=== PATIENT | male | born 1945 | race Caucasian/White ===

== ENCOUNTER → 2016-04-15 | Outpatient (REF) | payer MEDICARE ==
[~2016-04-15] MED LIST: /CIPR75TA OR; /MIRT15TA OR; /PANT40TA PO; /TAMS4CA PO; ACET65TA OR; ALLE25CA OR; ARANESP IV; ASPI325T OR; ASPI81TA51 PO; AZAT5TAB PO; CALC12502 OR; CEFT500T PO; CIPR500S PO; CIPR500T89 PO; CLAR10CA3 PO; COLA50CA3 PO; COMPAZINE OR; COZA25TA8 OR; DEXILANT OR; DIPHENHIST; FLAG500T OR; FLAG500T PO; FOLI1TAB86 PO; IMUR50TA PO; K-PHTAB PO; KAYEXALATE OR; LOPR50TA OR; LORATAB PO; LUNE2TAB OR; MAGN400C2 PO; MAGN400T PO; MAGN500T PO; MIRA3350 PO; MOTRIN PO; MULTIVIT PO; NITR4TASL SL; NITRO STAT; OMEP20TA7 OR; POTA50TAB PO; PRED5TAB PO; PROT1TAB2 PO; ROCA0.25 PO; SENSIPAR OR; TACR5CAP PO; TAMS0.4C PO; TUMS500C OR; TUMS500C PO; TYLE325T5 PO; VANC1CAP7 PO; VENOFER IV; VICO5TAB OR; VIT D OR; ZANT1TAB OR; ZANTTAB PO; ZEMPLAR IV; [UNRECOGNIZED DRUG - OTHER]; [UNRECOGNIZED DRUG - OTHER] PO; [UNRECOGNIZED DRUG - OTHER] PO; [UNRECOGNIZED DRUG - OTHER] PO; [UNRECOGNIZED DRUG - OTHER] SL; compazine PO; dexilant PO; dialyvite PO; sensipar PO
[2016-04-15 14:10] LABS: ALBUMIN 3.7 GM/DL (3.2-5.2); ALBUMIN/GLOBULIN RATIO 1.95 (1.00-1.93); BILIRUBIN,DIRECT 0.4 MG/DL (0.0-0.2); BILIRUBIN,TOTAL 1.2 MG/DL (0.2-1.0); TOTAL PROTEIN 5.6 GM/DL (6.4-8.2)
== END ==
LOC: M LAB REF 13:14
PROVIDERS: ATTEND Internal Medicine Nephrology
DX: E78.00 Pure hypercholesterolemia, unspecified (principal); Z94.0 Kidney transplant status

== ENCOUNTER → 2016-05-15 | Outpatient (CLI) | payer MEDICARE ==
[~2016-05-15] MED LIST changes: +GASTROGRAFIN SOLUTION 30ML (Q9963) As Ordered ONE; +ISOVUE-370 76% 100ML VIAL (Q9967) As Ordered ONE
--- NOTE | 2016-05-15 16:45 | REP ---
Clinical: Right lower quadrant pain. History of diverticulitis. Technique: Axial contrast enhanced images from the lung bases to the pubic symphysis using oral and 100 ml Isovue 370 intravenous contrast material along with precontrast and delayed images of the abdomen to include the right lower quadrant transplant kidney. Coronal and sagittal re-formations obtained. Comparison: 10/15/2014. Findings: Lung bases demonstrate chronic left lower lobe atelectasis likely related to marked scoliosis. Visualized portions of the heart and pericardium are stable. Liver demonstrates diffuse chronic cystic changes. Splenomegaly remains stable. Pancreas is unremarkable adrenal glands are normal. [place] kidneys are absent. The enteric system demonstrates diffuse diverticulosis without bowel obstruction and no definite inflammatory process or diverticulitis. Transplanted kidney in the right lower quadrant appears normal on noncontrast, enhanced and delayed imaging. The bladder demonstrates small anterior diverticulum. The prostate gland is heterogeneous and mildly enlarged measuring up to 4.6 cm transverse diameter. Minimal chronic-appearing scattered mesenteric stranding noted throughout the abdomen and pelvis without significant ascites. No free air. No obvious adenopathy. Atherosclerotic changes to the aorta and vasculature noted without aneurysm. Musculoskeletal structures demonstrate severe scoliosis and degenerative changes. Impression: Diffuse chronic changes as described above. Normal appearing transplant kidney in the right lower quadrant. Marked diverticulosis without definite acute diverticulitis. No obvious acute intra-abdominal or pelvic pathology appreciated. Signed by Octavio Cadet MD 05/15/2016 04:36 P
== END ==
LOC: M RAD 14:15
PROVIDERS: ATTEND Internal Medicine Nephrology
DX: R10.31 Right lower quadrant pain (principal); K57.32 Diverticulitis of large intestine without perforation or abscess without bleeding
CPT/HCPCS: 74178; Q9963; Q9967

== ENCOUNTER → 2016-05-22 | Outpatient (REF) | payer MEDICARE ==
[~2016-05-22] MED LIST changes: -GASTROGRAFIN SOLUTION 30ML (Q9963) As Ordered ONE; -ISOVUE-370 76% 100ML VIAL (Q9967) As Ordered ONE
[2016-05-22 14:00] LABS: ALBUMIN 3.6 GM/DL (3.2-5.2); ALBUMIN/GLOBULIN RATIO 1.8 (1.00-1.93); BILIRUBIN,DIRECT 0.4 MG/DL (0.0-0.2); BILIRUBIN,TOTAL 1.3 MG/DL (0.2-1.0); TOTAL PROTEIN 5.6 GM/DL (6.4-8.2)
== END ==
LOC: M LAB REF 12:59
PROVIDERS: ATTEND Internal Medicine Nephrology
DX: Z94.0 Kidney transplant status (principal); E78.00 Pure hypercholesterolemia, unspecified

== ENCOUNTER 2016-09-17 19:35 | Inpatient (IN) | payer MEDICARE ==
[~2016-09-17] VITALS: Ht 165.1 cm; Wt 73.7 kg
[~2016-09-17 19:35] MED LIST changes: +AZAT50TA2 PO; -AZAT5TAB PO; -IMUR50TA PO; +IMUR50TA6 PO
[2016-09-17] MEDS ORDERED: ONDANSETRON 4MG/2ML VIAL (J2405) IV ONE (20:15)
[2016-09-17] MEDS ORDERED: NS 1,000 ML IV ONE (20:15)
[2016-09-17 20:24] LABS: BASO # 0.1 K/mm3 (0.0-0.2); BASO % 0.8 % (0.0-1.0); EOS # 0.1 K/mm3 (0.0-0.50); EOS % 1.3 % (0.0-3.0); LARGE UNSTAINED CELL # 0.1 K/mm3 (0.0-0.4); LARGE UNSTAINED CELL % 1.4 % (0.0-4.0); LYMPH # 1.2 K/mm3 (1.5-4.5); LYMPH % 15.2 % (24.0-44.0); MEAN CORPUSCULAR HEMOGLOBIN 33.4 pg (27.0-33.0); MEAN CORPUSCULAR HGB CONC 33.5 g/dl (32.0-36.5); MEAN CORPUSCULAR VOLUME 99.6 fl (80.0-96.0); MONO # 0.5 K/mm3 (0.0-0.8); MONO % 6.1 % (0.0-5.0); NEUTROPHILS % 75.2 % (36.0-66.0); RED CELL DISTRIBUTION WIDTH 15.1 % (11.5-14.5); WHITE BLOOD COUNT 7.9 K/mm3 (4.0-10.0)
[2016-09-17 20:25] LABS: PLATELET COUNT, AUTOMATED 70 k/mm3 (150-450)
[2016-09-17] MEDS ORDERED: MORPHINE 4 MG/ML 1ML SYRINGE IV PRN (20:30)
[2016-09-17 20:35] LABS: INR 1.27
--- NOTE | 2016-09-17 20:50 | REPUSA ---
CT of the abdomen and pelvis without contrast Clinical statement: Pain. Technique: Multiple axial CT images were obtained from the base of the lungs to the floor of the pelv is utilizing 5 mm axial slices without administration of contrast. Coronal and sagittal reconstructio ns were also obtained. Comparison: 05/15/2016. Findings: Chest: The visualized lung bases are clear. Abdomen: The [place] kidneys are absent bilaterally. There are innumerable low attenuation lesion scat tered throughout the liver, too small to fully characterize on this CT examination. The spleen is enl arged, measuring 17.2 cm in diameter. The pancreas, gallbladder and adrenal glands are unremarkable. The aorta demonstrates normal caliber and contour. There is no abdominal lymphadenopathy or ascites. Pelvis: The bowel is unremarkable, with no obstructive or inflammatory changes. Diffuse left-sided di verticulosis is noted, without evidence of diverticulitis. A transplant kidney is noted in the right lower quadrant. 2 mm nonobstructing stone is appreciated. The urinary bladder is within normal limits . There is no pelvic lymphadenopathy. There is a moderate amount of pelvic ascites, most prominent i n the left flank region. The other pelvic structures appear unremarkable. Bones: There are no suspicious osseous abnormalities seen. Severe scoliosis of the thoracic and lumba r spine is grossly stable. Impression: 1. No obstructive or inflammatory bowel changes. Diffuse left-sided diverticulosis. 2. Innumerable low attenuation lesions the liver, too small to characterize. Ultrasound may be helpfu l for further evaluation. 3. Splenomegaly. 4. Absence of the bilateral [place] kidneys. 5. Transplant kidney in the right lower quadrant is appreciated and are grossly unremarkable. 2 mm no nobstructing stone is appreciated however. 6. Moderate amount of pelvic ascites. 7. Severe stable scoliosis.
[2016-09-17 20:57] LABS: ALBUMIN/GLOBULIN RATIO 1.76 (1.00-1.93); ALKALINE PHOSPHATASE 77 U/L (45-117); ALT/SGPT 10 U/L (12-78); ANION GAP 9 MEQ/L (8-16); AST/SGOT 12 U/L (15-37); BILIRUBIN,DIRECT 0.4 MG/DL (0.0-0.2); BILIRUBIN,TOTAL 1.7 MG/DL (0.2-1.0); BLOOD UREA NITROGEN 20 MG/DL (7-18); CALCIUM LEVEL 8.4 MG/DL (8.8-10.2); CARBON DIOXIDE LEVEL 27 MEQ/L (21-32); CHLORIDE LEVEL 103 MEQ/L (98-107); GLOMERULAR FILTRATION RATE > 60.0 (>42); GLUCOSE, FASTING 144 MG/DL (83-110); POTASSIUM SERUM 4.3 MEQ/L (3.5-5.1); SODIUM LEVEL 139 MEQ/L (136-145); TOTAL PROTEIN 4.7 GM/DL (6.4-8.2)
[2016-09-17] MEDS: TAMSULOSIN 0.4 MG CAP PO SCH (21:00)
[2016-09-17] MEDS ORDERED: FLOM5CAP PO (21:55)
[2016-09-17] MEDS ORDERED: ONDA4TAB6 PO (21:55)
[2016-09-17] MEDS ORDERED: FOLI1TAB4 PO (21:55)
[2016-09-17] MEDS ORDERED: CALC500C16 PO (21:55)
[2016-09-17] MEDS ORDERED: ATOR1TAB19 PO (21:55)
[2016-09-17] MEDS ORDERED: MORPHINE 2 MG/ML 1ML SYRINGE IV PRN (22:15)
[2016-09-17] MEDS: PANTOPRAZOLE 40MG INJ (PROTONIX) (C9113) IV SCH (22:47)
[2016-09-17] MEDS: NS 1,000 ML IV SCH (23:00)
[2016-09-17] MEDS: OCTREOTIDE ACETATE 1,200 MCG in NS 238.8 ML IV SCH (23:05)
[2016-09-18] VITALS (8 sets, daily range): BP systolic 96–159; BP diastolic 52–74
[2016-09-18] MEDS: ONDANSETRON 4MG/2ML VIAL (J2405) IV PRN ×2 (02:47→08:04)
[2016-09-18 05:37] LABS: BASO # 0.1 K/mm3 (0.0-0.2); BASO % 1.9 % (0.0-1.0); EOS % 0.6 % (0.0-3.0); LARGE UNSTAINED CELL # 0.1 K/mm3 (0.0-0.4); LARGE UNSTAINED CELL % 1.4 % (0.0-4.0); LYMPH # 0.5 K/mm3 (1.5-4.5); MEAN CORPUSCULAR HEMOGLOBIN 34.2 pg (27.0-33.0); MEAN CORPUSCULAR HGB CONC 33.8 g/dl (32.0-36.5); MEAN CORPUSCULAR VOLUME 101.3 fl (80.0-96.0); MONO # 0.4 K/mm3 (0.0-0.8); MONO % 6.3 % (0.0-5.0); NEUTROPHILS # 4.8 K/mm3 (1.8-7.7); NEUTROPHILS % 80.9 % (36.0-66.0); RED CELL DISTRIBUTION WIDTH 15.2 % (11.5-14.5)
--- NOTE | 2016-09-18 05:39 | HPE ---
DATE OF ADMISSION: 09/17/2016 PRIMARY CARE PROVIDER: Dr. Smallwood. CHIEF COMPLAINT: Melena, four episodes since 2:30 p.m. today, along with crampy abdominal pain. PAST MEDICAL HISTORY: 1. Polycystic kidney disease, status post kidney transplant in 2012, status post removal left [place] kidney. 2. Polycystic liver disease. 3. Esophageal varices. 4. Diastolic congestive heart failure. 5. Coronary artery disease. 6. Thrombocytopenia. 7. History of esophageal dysmotility and gastroesophageal strictures requiring esophageal dilatation. 8. Chronic chest deformity with chronic restrictive lung disease. 9. History of testicular cancer, status post orchiectomy. 10. Diffuse diverticulosis of the left side. 11. Scoliosis. HISTORY OF PRESENT ILLNESS: This is a 71-year-old male who was in his usual state of health until this afternoon when he suddenly had block-colored stool. He did not pay any attention to it; however, he had another episode late in the evening around five o'clock along with severe lower abdominal pain, so came to the emergency room for evaluation. When the patient was waiting in the communications professor area, had one more episode and then one more episode while he was in the room in the emergency room. The patient never had any history of melena. The patient does have a history of diverticulosis and also esophageal varices as seen in esophagogastroduodenoscopy (EGD) in 2016. Also the patient was taking 3-4 full strength aspirin over the past week. The patient had a CT abdomen and pelvis done which showed pelvic ascites, left-sided diffuse diverticulosis, innumerable low-attenuation lesions in the liver which on previous imaging studies were diagnosed as hepatic cysts, splenomegaly, absence of bilateral [place] kidneys. Has a transplanted kidney in the right lower quadrant. There is a 2 mm nonobstructive stone, severe stable scoliosis. The patient's laboratory data was significant for a hemoglobin of 11.1 with platelets of 70,000. His lactic acid was elevated at 3.1. Total bilirubin was at 1.7. Hospitalist service was consulted for admission for gastrointestinal (GI) bleed. On re-interview, the patient denied any abdominal pain at that moment, and he said his last melanotic stool was around 8 p.m. He denied any fever or chills. He denied any chest pain, any cough or phlegm. Denied any nausea or vomiting. PAST SURGICAL HISTORY: 1. Coronary artery bypass graft (CABG). 2. Bilateral [place] nephrectomy in 2012. 3. Kidney transplant in 2012. 4. Orchiectomy. 5. Multiple arteriovenous (AV) fistulas and AV grafts when the patient was on hemodialysis. 6. History of cholecystectomy. ALLERGIES: PENICILLIN and PSEUDOEPHEDRINE. HOME MEDICATIONS: - Tylenol 650 mg every four hours as needed for pain or fever - atorvastatin 10 mg at bedtime - azathioprine 50 mg by mouth daily - calcitriol 0.25 mcg by mouth five times a week - calcium carbonate 1000 mg by mouth twice a day - folic acid 1 mg by mouth daily - loratadine 10 mg by mouth daily - magnesium oxide 400 mg by mouth daily - nitroglycerin 0.4 mg sublingual as needed - ondansetron 4 mg every four hours as needed for nausea - pantoprazole 40 mg at bedtime - potassium phosphate 500 mg by mouth daily - Flomax 0.4 mg at bedtime Additional past medical history also includes benign prostatic hypertrophy (BPH) , hyperlipidemia, secondary hyperparathyroidism, and history of hemodialysis for about 10 years, and chronic back pain. SOCIAL HISTORY: The patient quit smoking 27 years ago. Does not drink alcohol or use any recreational drugs. FAMILY HISTORY: The patient's brother also had polycystic kidney disease. He has now. The patient's son and daughter both have polycystic kidney disease. REVIEW OF SYSTEMS: All 10-point review of systems was negative except those mentioned in history of present illness (HPI). PHYSICAL EXAMINATION: VITAL SIGNS: Temperature 98.8, pulse 97, respiratory rate 20, blood pressure 122/61, pulse oximetry 98% on room air. GENERAL: Patient awake, alert, and oriented times three lying down in bed in no acute distress. HEENT: Normocephalic, atraumatic. Moist mucous membranes. Anicteric eyes. CHEST: Clear to auscultation. There is scoliosis present. CARDIOVASCULAR: S1, S2. Regular. No rub, murmur or gallop. ABDOMEN: Obese, soft, nontender. Bowel sounds are peristaltic. EXTREMITIES: 2+ bilateral edema. LABORATORY DATA: WBC 7.9, hemoglobin 11.1, platelets 70. Sodium 139, potassium 4.3, chloride 103, bicarbonate 27, BUN 20, creatinine 1.0, glucose 144, lactate 3.1, calcium 8.4. Total bilirubin 1.7, direct bilirubin 0.4, AST 12, ALT 10, alkaline phosphatase 77, albumin 3. Lipase 142. IMAGING: CT abdomen and pelvis as noted above. ASSESSMENT AND PLAN: This is a 71-year-old male admitted for gastrointestinal (GI) bleed. PLAN: 1. GI bleed, could be variceal bleeding as last EGD in 2016, showed esophageal varices; however, the patient also has a history of diffuse diverticulosis as per colonoscopy, as well as has been imbibing high doses of aspirin over the past week. The patient will need EGD and possible colonoscopy. I have consulted Dr. Perez. We will as present keep the patient nothing by mouth, intravenous (IV ) fluids at 25 mL per hour. Octreotide infusion as well as pantoprazole IV twice a day. 2. Hepatic polycystic disease and possible cirrhosis as suggested by the presence of esophageal varices, splenomegaly, as well as pelvic ascites, as well as thrombocytopenia. 3. History of polycystic kidney disease, now status post renal transplant 2011. Renal functions are at baseline. Will continue to monitor. The patient is on azathioprine and at present, we will hold this as the patient is going to be nothing by mouth for possible procedure. 4. Benign prostatic hypertrophy (BPH). Will continue with Flomax. 5. Coronary artery disease with history of coronary artery bypass graft (CABG). Stable at this point. 6. Hyperlipidemia. Will continue atorvastatin. 7. Secondary hyperparathyroidism and hyperphosphatemia. Will continue with calcitriol and calcium carbonate once the patient is eating orally. 8. Chronic hypokalemia and hypomagnesemia. Will continue with magnesium and potassium and phosphate replacements. 9. Chronic thrombocytopenia. This may be related to underlying cirrhosis. We will hold all heparin products. 10. Deep venous thrombosis (DVT) prophylaxis with thromboembolism deterrent stockings (TEDs) and sequentials. 11. Pelvic ascites as per CT scan. If increases, will need to tap. 12. Esophageal varices and ascites: Patient possibly has underlying cirrhosis from polycystic liver disease. 13. Diverticulosis. 14. Chronic severe scoliosis with obstructive lung disease at present. Breathing remains to be stable. 15. History of esophageal strictures and requiring esophageal dilatation. No issues at this point. 16. DVT prophylaxis has been ordered. [facility]
[2016-09-18 05:53] LABS: ANION GAP 7 MEQ/L (8-16); BLOOD UREA NITROGEN 21 MG/DL (7-18); CALCIUM LEVEL 8.2 MG/DL (8.8-10.2); CARBON DIOXIDE LEVEL 25 MEQ/L (21-32); CHLORIDE LEVEL 107 MEQ/L (98-107); CREATININE FOR GFR 0.89 MG/DL (0.70-1.30); GLOMERULAR FILTRATION RATE > 60.0 (>42); GLUCOSE, FASTING 134 MG/DL (83-110); POTASSIUM SERUM 4.8 MEQ/L (3.5-5.1); SODIUM LEVEL 139 MEQ/L (136-145)
[2016-09-18 06:13] LABS: PLATELET COUNT, AUTOMATED 41 k/mm3 (150-450)
[2016-09-18] MEDS: NS 1,000 ML IV SCH (07:38)
[2016-09-18] MEDS: azaTHIOprine 50 MG TAB (J7500) PO SCH (09:45)
[2016-09-18] MEDS: PANTOPRAZOLE 40MG INJ (PROTONIX) (C9113) IV SCH ×2 (09:45→22:16)
[2016-09-18] MEDS ORDERED: predniSONE 5 MG TAB PO ONE (10:30)
--- NOTE | 2016-09-18 12:16 | ECGEPIP ---
Stationary ECG Study [facility] - ED Test Date: 2016-09-17 Pat Name: AL MUNOZ Department: Room: [place] [address] Gender: M Kiln Packer: pepito : 1945 Requested By: MICHAEL Charles Order Number: [id number] Reading MD: Tomi Uribe Measurements Intervals [place] Rate: 83 P: 87 VT: 162 QRS: 37 QRSD: 143 T: 7 QT: 402 QTc: 474 Interpretive Statements SINUS RHYTHM RIGHT BUNDLE BRANCH BLOCK SIMILAR TO 12/26/15 Electronically Signed On 09-18-2016 12:16:16 EDT by Tomi Uribe
[2016-09-18] MEDS ORDERED: ALBUTEROL SULFATE 2.5 MG/0.5 ML INH NEB SOLN INH PRN (15:00)
[2016-09-18] MEDS: BACITRACIN OINT 30GM TOP SCH (15:43)
[2016-09-18] MEDS: IPRATROPIUM 0.5MG/ALBUTEROL 2.5MG INH SOL UD 3ML (DUONEB)(J7620) NEB SCH ×2 (15:55→20:14)
[2016-09-18 16:02] LABS: ABG BASE EXCESS -2.2 (-2.0-2.0); ABG HCO3 22.2 MEQ/L (22.0-26.0); ABG PARTIAL PRESSURE CO2 36.1 mmHg (35.0-45.0); ABG PARTIAL PRESSURE O2 78.4 mmHg (75.0-100.0); ABG STANDARD HCO3 22.6 MEQ/L (22.0-26.0); ABG TOTAL CO2 23.3 MEQ/L (23.0-31.0); ABG pH (ARTERIAL) 7.406 UNITS (7.350-7.450)
[2016-09-18] MEDS ORDERED: ADACEL/BOOSTRIX VACCINE (DIPHTH/PERTUSS/ACELL/TETANUS)0.5ML SYR (90715) IM ONE (17:00)
[2016-09-18] MEDS ORDERED: LORazepam 2 MG/ML VIAL (J2060) IV PRN (17:30)
--- NOTE | 2016-09-18 18:42 | REP ---
AP PORTABLE CHEST: 09/18/2016. Comparison chest x-ray 12/26/2015. Findings: AP semi-erect portable chest at 05:48 p.m. shows sternotomy wires. There is severe dextrorotatory scoliosis of thoracic spine. Heart is enlarged. There is left pleural effusion as on CT abdomen yesterday but appears larger. There is some basilar atelectatic change above the right diaphragm. Venous hypertension seen without edward edema. Impression: 1. Cardiomegaly with venous hypertension. Enlarging left effusion and basilar atelectasis or infiltrates. The scoliosis which is dextrorotatory is severe and elevates the left diaphragm. Signed by Mayo Cadena MD 09/18/2016 08:47 P
--- NOTE | 2016-09-18 19:38 | IPNPDOC ---
Subjective Date Seen The patient was seen on 09/18/16. Subjective Chief Complaint/HPI The patient is a 71-year-old male admitted with a reason for visit of Gib ( Gastrointestinal Bleeding). Events since last encounter Loose stools have tapered off, he was short of breath and anxious, that resolved with a fan in the room and laying on his left side, no pain Constitutional: Denies: Chills, Fever Pulmonary: Denies: Dyspnea, Cough Cardiovascular: Denies: Chest Pain, Palpitations Gastrointestinal: Reports: Diarrhea, Denies: Nausea, Vomiting, Abdominal Pain Objective Physical Examination General Exam: Positive: Alert, Cooperative, No Acute Distress Eye Exam: Negative: Sclera icteric ENT Exam: Positive: Mucous membr. moist/pink Chest Exam: Positive: Diminished, Negative: Rales, Rhonchi, Wheezing Heart Exam: Positive: Rate Normal, Regular Rhythm, Normal S1, Normal S2 Telemetry: Positive: No significant arrhythmia Abdomen Exam: Positive: Normal bowel sounds, Soft, Negative: Tenderness Extremity Exam: Negative: Edema Assessment /Plan Problems (1) Gastrointestinal hemorrhage Status: Acute Problem Text: I discussed with Dr. Perez. Suspected lower gi bleed. Has history of both esophageal varices and diverticulosis Following h/h, trending downward but slowly No plan for endoscopy today, follow clinically (2) Diastolic CHF Status: Chronic Problem Text: history of, but may need diuresis with transfusion Dr. Smallwood decreased IVF earlier today Has had some shortness of breath, but a technically complex portable cxr suggests left effusion (3) Restrictive lung disease Status: Chronic (4) Polycystic kidney disease Status: Chronic Problem Text: and polycystic liver (5) Testicular cancer Status: Chronic (6) Kidney transplant status, cadaveric Onset Date: 01/29/2014 Status: Chronic Problem Text: Dr. Smallwood consulted (7) Dog bite of forearm Status: Acute Problem Text: seven days ago, his son's dog bit his left forearm, the dog is known to him has been vaccinated according to patient He has no pain, or drainage The area is reddened and he has been cleaning it with hydrogen peroxide He does not know when his last tetanus vaccine was received Plan: Tetanus vaccine no role for oral antibiotics at seven days no need for rabies vaccine Plan/VTE VTE Prophylaxis Ordered?: Yes (mechanical) VS, I&O, 24H, Fishbone Vital Signs/I&O Vital Signs Date Time Temp Pulse Resp B/P (MAP) Pulse Ox O2 Delivery O2 Flow Rate FiO2 09/18/16 16:10 Room Air 09/18/16 16:00 98.3 73 22 159/72 (101) 95 I&O- Last 24 Hours up to 6 AM 09/18/16 05:59 Intake Total 1000 ml Output Total 200 ml Balance 800 ml Laboratory Data 24H LABS Laboratory Tests 2 09/17/16 20:14: White Blood Count 7.9, Red Blood Count 3.32L, Hemoglobin 11.1L, Hematocrit 33.1L , Mean Corpuscular Volume 99.6H, Mean Corpuscular Hemoglobin 33.4H, Mean Corpuscular Hemoglobin Concent 33.5, Red Cell Distribution Width 15.1H, Platelet Count 70L, Neutrophils (%) (Auto) 75.2H, Lymphocytes (%) (Auto) 15.2L, Monocytes (%) (Auto) 6.1H, Eosinophils (%) (Auto) 1.3, Basophils (%) (Auto) 0.8 , Neutrophils # (Auto) 6.0, Lymphocytes # (Auto) 1.2L, Monocytes # (Auto) 0.5, Eosinophils # (Auto) 0.1, Basophils # (Auto) 0.1, Large Unclassified Cells % 1.4 , Large Unclassified Cells # 0.1, Prothrombin Time 16.0H, Prothromb Time International Ratio 1.27, Activated Partial Thromboplast Time 27.3, Anion Gap 9 , Glomerular Filtration Rate > 60.0, Calcium Level 8.4L, Aspartate Amino Transf (AST/SGOT) 12L, Alanine Aminotransferase (ALT/SGPT) 10L, Alkaline Phosphatase 77 , Total Bilirubin 1.7H, Direct Bilirubin 0.4H, Total Creatine Kinase 39, Creatine Kinase MB 1.2, Creatine Kinase MB Relative Index 3.07, Troponin I 0.06 , Total Protein 4.7L, Albumin 3.0L, Albumin/Globulin Ratio 1.76, Lipase 142, Salicylates Level < 1.7L 09/17/16 20:15: Lactic Acid Level 3.1*H 09/18/16 00:37: Lactic Acid Followup at 4 Hours 3.2*H 09/18/16 05:23: White Blood Count 6.0, Red Blood Count 2.90L, Hemoglobin 9.9L, Hematocrit 29.3L , Mean Corpuscular Volume 101.3H, Mean Corpuscular Hemoglobin 34.2H, Mean Corpuscular Hemoglobin Concent 33.8, Red Cell Distribution Width 15.2H, Platelet Count 41#L, Neutrophils (%) (Auto) 80.9H, Lymphocytes (%) (Auto) 9.0L, Monocytes (%) (Auto) 6.3H, Eosinophils (%) (Auto) 0.6, Basophils (%) (Auto) 1.9H , Neutrophils # (Auto) 4.8, Lymphocytes # (Auto) 0.5L, Monocytes # (Auto) 0.4, Eosinophils # (Auto) 0.0, Basophils # (Auto) 0.1, Large Unclassified Cells % 1.4 , Large Unclassified Cells # 0.1, Anion Gap 7L, Glomerular Filtration Rate > 60.0, Calcium Level 8.2L, Lactic Acid Level 1.6, Blood Urea Nitrogen 21H, Creatinine 0.89, Sodium Level 139, Potassium Level 4.8, Chloride Level 107, Carbon Dioxide Level 25 09/18/16 15:53: Blood Gas Bicarbonate Standard 22.6, Arterial Blood pH 7.406, Arterial Blood Partial Pressure CO2 36.1, Arterial Blood Partial Pressure O2 78.4, Arterial Blood Total CO2 23.3, Arterial Blood HCO3 22.2, Arterial Blood Base Excess -2.2L , Arterial Blood Oxygen Saturation 94.3L CBC/BMP Laboratory Tests 09/17/16 20:14 Red Blood Count 3.32 L, Mean Corpuscular Volume 99.6 H, Mean Corpuscular Hemoglobin 33.4 H, Mean Corpuscular Hemoglobin Concent 33.5, Red Cell Distribution Width 15.1 H, Neutrophils (%) (Auto) 75.2 H, Lymphocytes (%) (Auto ) 15.2 L, Monocytes (%) (Auto) 6.1 H, Eosinophils (%) (Auto) 1.3, Basophils (%) (Auto) 0.8, Neutrophils # (Auto) 6.0, Lymphocytes # (Auto) 1.2 L, Monocytes # ( Auto) 0.5, Eosinophils # (Auto) 0.1, Basophils # (Auto) 0.1 09/17/16 23:49 09/18/16 05:23 Red Blood Count 2.90 L, Mean Corpuscular Volume 101.3 H, Mean Corpuscular Hemoglobin 34.2 H, Mean Corpuscular Hemoglobin Concent 33.8, Red Cell Distribution Width 15.2 H, Neutrophils (%) (Auto) 80.9 H, Lymphocytes (%) (Auto ) 9.0 L, Monocytes (%) (Auto) 6.3 H, Eosinophils (%) (Auto) 0.6, Basophils (%) ( Auto) 1.9 H, Neutrophils # (Auto) 4.8, Lymphocytes # (Auto) 0.5 L, Monocytes # ( Auto) 0.4, Eosinophils # (Auto) 0.0, Basophils # (Auto) 0.1, Calcium Level 8.2 L 09/18/16 11:42 09/18/16 17:39 SKIP CONNELL MD Sep 18, 2016 19:38
--- NOTE | 2016-09-18 20:17 | CR ---
DATE OF CONSULTATION: 09/18/2016 REASON FOR CONSULTATION: To assist in the management of transplant kidney in this gentleman who is admitted with GI bleed. HISTORY OF PRESENT ILLNESS: Mr. Das is a 71-year-old gentleman with multiple chronic medical problems. He reports that he has been taking two to three regular strength aspirin for pain. He came to the emergency room with lower abdominal pain and bleeding per rectum. He was admitted last evening. He has history of end-stage renal disease secondary to polycystic kidneys, status post bilateral [place] kidney nephrectomy and a kidney transplant, which has been functioning well. PAST MEDICAL AND SURGICAL HISTORY: Significant for: 1. End-stage renal disease secondary to polycystic kidneys, status post bilateral [place] kidney nephrectomy and a kidney transplant. 2. History of polycystic kidneys. 3. Esophageal achalasia. 4. History of diastolic congestive heart failure. 5. History of coronary artery disease. 6. History of chronic thrombocytopenia. 7. History of chronic chest deformity due to kyphoscoliosis with restrictive lung disease. 8. History of testicular cancer, status post orchiectomy. 9. History of diverticulosis. PAST SURGICAL HISTORY: Significant for: 1. Coronary artery bypass graft, bilateral [place] nephrectomy, kidney transplant, orchiectomy, multiple surgeries for atrioventricular (AV) fistula and AV graft and a history of cholecystectomy. He also has had esophageal dilatation done in the past. HOME MEDICATIONS: Include: - atorvastatin 10 mg daily - azathioprine 50 mg daily - calcitriol 0.25 mcg five times a week - calcium carbonate 1000 mg twice a day - folic acid 1 mg daily - magnesium oxide 400 mg daily - prednisone 5 mg daily - Flomax 0.4 mg at bedtime - pantoprazole 40 mg daily - potassium phosphate 500 mg daily ALLERGIES: The patient has allergy to PENICILLIN and PSEUDOEPHEDRINE. PERSONAL AND SOCIAL HISTORY: The patient quit smoking about 27 years ago. He does not drink alcohol or use any recreational drugs. He lives with his son. FAMILY HISTORY: Significant for polycystic kidney disease. REVIEW OF SYSTEMS: The patient denies any fever or chills. Apparently he had some back pain and took aspirin 2-3 tablets. Ears, nose and throat are unremarkable. Cardiovascular system negative for dyspnea or chest pain. Respiratory system is negative for cough or hemoptysis. GI system is as per history of present illness. He denies any vomiting. There is no abdominal pain at this time. system is significant for benign prostatic hypertrophy (BPH). Endocrine system is negative for diabetes. He does have history of secondary hyperparathyroidism. Psychosocial system is significant for some mild depression. Neurological system is negative for seizures. Hematological system is significant for chronic thrombocytopenia. Other systems are unremarkable. PHYSICAL EXAMINATION: The patient is awake and alert and without any acute distress at the time of my visit. Temperature 99.5 degrees Fahrenheit, heart rate 70 per minute and respiratory rate 20 per minute. Blood pressure 113/53 mmHg and oxygen saturation 94% on room air. Head: Is atraumatic. Ears, nose and throat are unremarkable. Oral mucosa is moist and healthy. Pupils are equal and reactive to light. Neck is supple and jugular venous distention (JVD) is mildly elevated. Heart: Sounds are regular and distant. Lungs with diminished breath sounds at the right base due to kyphoscoliosis. Abdomen: Soft and nontender at present. Transplant kidney is nontender. Extremities: Have no cyanosis or clubbing. Lower extremities have 1+ edema. Neurologically, he is awake, alert and oriented times three. Skin has no rash or ulcers. LABORATORY DATA: On admission, hemoglobin was 11.1 and hematocrit 33.1. Platelets 70,000. This morning, hemoglobin is 9.9 and hematocrit 29.3. Platelets are down 41,000. Sodium is 139 and potassium 4.8. BUN 21 and creatinine 0.89. Glucose 134 and calcium 8.2. Initial lactic acid level was 3.1 and a repeat one was 3.2. Today's lactic acid level is down to 1.6. Salicylate level less than 1.7. CT scan of abdomen and pelvis done in the emergency room, which did not show any obstructive or inflammatory bowel disease. Splenomegaly was noted. Bilateral [place] nephrectomies. Transplant kidney in right lower quadrant with a 2 mm nonobstructing stone. Pelvic ascites was noted. Scoliosis is unchanged. PROBLEMS: 1. Rectal bleeding. Probably the patient has diverticular bleed as he does have history of diffuse diverticulosis. There is some drop in his hemoglobin and hematocrit. However, at this point there is no indication for urgent transfusion. I agree with continued monitoring of his hematocrit. 2. Kidney transplant status. Kidney function has been stable at about baseline. His azathioprine dose has been very low at 50 mg daily. He is also on prednisone 5 mg daily at home, which he is not taking right now. We will add prednisone 5 mg daily. 3. Lactic acidosis. The patient does have history of colitis and diverticulitis in the past. However, his CT scan on admission did not show any evidence of diverticulitis. His lactic acid has already improved. 4. Secondary hyperparathyroidism. I suggest to continue with calcitriol at the home dose of 0.25 mcg daily 5 days a week. Thank you for involving me in the care of Mr. Das. I will follow him along with you.
--- NOTE | 2016-09-18 20:30 | REPUSA ---
CT of the chest without contrast clinical history: shortness of breath. Technique: Multiple axial CT images were obtained with 5 mm cuts through the chest without administra tion of contrast. No comparison is available. There is no thoracic lymphadenopathy. The visualized portions of the thyroid gland is unremarkable. T here is a small left-sided pleural effusion. Consolidation is noted in the left lower lung. Limited i maging of the upper abdomen demonstrates numerous low attenuation lesions within the liver. Scarring of the liver is noted. The spleen is enlarged. There is mild amount of abdominal ascites. There are n o suspicious osseous lesions. However, there is severe scoliosis of the thoracic and lumbar spine. Impression: 1. Small left lower lobe pleural effusion with consolidation of the left lower lung suspicious for pn eumonia. 2. Numerous cystic lesions within the liver. Chronic scarring is seen throughout the liver. 3. Splenomegaly. 4. Severe scoliosis in degenerative changes throughout the spine.
[2016-09-18] MEDS: TAMSULOSIN 0.4 MG CAP PO SCH (22:15)
[2016-09-18] MEDS: OCTREOTIDE ACETATE 1,200 MCG in NS 238.8 ML IV SCH (22:20)
[2016-09-19 04:45] VITALS: BP 124/78
[2016-09-19 05:19] LABS: BASO % 0.3 % (0.0-1.0); EOS % 1.4 % (0.0-3.0); LARGE UNSTAINED CELL # 0.1 K/mm3 (0.0-0.4); LARGE UNSTAINED CELL % 1.6 % (0.0-4.0); LYMPH # 0.6 K/mm3 (1.5-4.5); MEAN CORPUSCULAR HEMOGLOBIN 34.4 pg (27.0-33.0); MEAN CORPUSCULAR HGB CONC 34.8 g/dl (32.0-36.5); MEAN CORPUSCULAR VOLUME 98.8 fl (80.0-96.0); MONO # 0.3 K/mm3 (0.0-0.8); MONO % 8.4 % (0.0-5.0); NEUTROPHILS # 2.6 K/mm3 (1.8-7.7); NEUTROPHILS % 73.3 % (36.0-66.0); RED CELL DISTRIBUTION WIDTH 15.7 % (11.5-14.5); WHITE BLOOD COUNT 3.5 K/mm3 (4.0-10.0)
[2016-09-19 05:20] LABS: PLATELET COUNT, AUTOMATED 36 k/mm3 (150-450)
[2016-09-19 05:42] LABS: ANION GAP 4 MEQ/L (8-16); BLOOD UREA NITROGEN 24 MG/DL (7-18); CALCIUM LEVEL 8.3 MG/DL (8.8-10.2); CARBON DIOXIDE LEVEL 31 MEQ/L (21-32); CHLORIDE LEVEL 105 MEQ/L (98-107); GLOMERULAR FILTRATION RATE > 60.0 (>42); GLUCOSE, FASTING 120 MG/DL (83-110); SODIUM LEVEL 140 MEQ/L (136-145)
[2016-09-19] MEDS: IPRATROPIUM 0.5MG/ALBUTEROL 2.5MG INH SOL UD 3ML (DUONEB)(J7620) NEB SCH ×4 (07:34→20:01)
[2016-09-19 08:00] VITALS: BP 125/83
[2016-09-19] MEDS: azaTHIOprine 50 MG TAB (J7500) PO SCH (09:02)
[2016-09-19] MEDS: PANTOPRAZOLE 40MG INJ (PROTONIX) (C9113) IV SCH ×2 (09:02→21:30)
[2016-09-19] MEDS: predniSONE 5 MG TAB PO SCH (09:02)
--- NOTE | 2016-09-19 10:38 | IPNPDOC ---
Subjective Date Seen The patient was seen on 09/19/16. Subjective Chief Complaint/HPI The patient is a 71-year-old male admitted with a reason for visit of Gib ( Gastrointestinal Bleeding). Events since last encounter Feeling better this am, slept well with fan in room, still having bloody bm's but they are "slowing down", no chest pain, no dizzyness or presyncope, no fever or chills Pulmonary: Reports: Dyspnea, Denies: Cough Cardiovascular: Denies: Chest Pain, Palpitations Gastrointestinal: Denies: Nausea, Vomiting, Abdominal Pain Objective Physical Examination General Exam: Positive: Alert, Cooperative, No Acute Distress Eye Exam: Positive: Conjunctiva & lids normal, Negative: Sclera icteric ENT Exam: Positive: Mucous membr. moist/pink Neck Exam: Positive: Supple Chest Exam: Positive: Diminished, Negative: Rales, Rhonchi, Wheezing Heart Exam: Positive: Rate Normal, Regular Rhythm, Normal S1, Normal S2 Telemetry: Positive: No significant arrhythmia Abdomen Exam: Positive: Normal bowel sounds, Soft, Negative: Tenderness Extremity Exam: Negative: Edema Assessment /Plan Problems (1) Gastrointestinal hemorrhage Status: Acute Problem Text: I discussed with Dr. Perez by phone. Suspected lower gi bleed. Has history of both esophageal varices and diverticulosis Following h/h, trending downward with 12 bms noted. No plan for endoscopy today, follow clinically (2) Diastolic CHF Status: Chronic Problem Text: history of, but may need diuresis with transfusion Dr. Smallwood decreased IVF earlier today Has had some shortness of breath, but a technically complex portable cxr suggests left effusion- followup ct showed minimal effusion (3) Restrictive lung disease Status: Chronic (4) Polycystic kidney disease Status: Chronic Problem Text: and polycystic liver (5) Testicular cancer Status: Chronic (6) Kidney transplant status, cadaveric Onset Date: 01/29/2014 Status: Chronic Problem Text: Dr. Smallwood consulted (7) Dog bite of forearm Status: Acute Problem Text: seven days ago, his son's dog bit his left forearm, the dog is known to him has been vaccinated according to patient He has no pain, or drainage The area is reddened and he has been cleaning it with hydrogen peroxide He does not know when his last tetanus vaccine was received Executed Plan: Tetanus vaccine no role for oral antibiotics at seven days no need for rabies vaccine Plan/VTE VTE Prophylaxis Ordered?: Yes (mechanical) VS, I&O, 24H, Fishbone Vital Signs/I&O Vital Signs Date Time Temp Pulse Resp B/P (MAP) Pulse Ox O2 Delivery O2 Flow Rate FiO2 09/19/16 08:00 97.3 82 24 125/83 (97) 95 Room Air I&O- Last 24 Hours up to 6 AM 09/19/16 06:00 Intake Total 1470 ml Output Total 875 ml Balance 595 ml Laboratory Data 24H LABS Laboratory Tests 2 09/18/16 15:53: Blood Gas Bicarbonate Standard 22.6, Arterial Blood pH 7.406, Arterial Blood Partial Pressure CO2 36.1, Arterial Blood Partial Pressure O2 78.4, Arterial Blood Total CO2 23.3, Arterial Blood HCO3 22.2, Arterial Blood Base Excess -2.2L , Arterial Blood Oxygen Saturation 94.3L 09/19/16 04:39: White Blood Count 3.5L, Red Blood Count 2.49L, Hemoglobin 8.6L, Hematocrit 24.6L , Mean Corpuscular Volume 98.8H, Mean Corpuscular Hemoglobin 34.4H, Mean Corpuscular Hemoglobin Concent 34.8, Red Cell Distribution Width 15.7H, Platelet Count 36L, Neutrophils (%) (Auto) 73.3H, Lymphocytes (%) (Auto) 15.0L, Monocytes (%) (Auto) 8.4H, Eosinophils (%) (Auto) 1.4, Basophils (%) (Auto) 0.3 , Neutrophils # (Auto) 2.6, Lymphocytes # (Auto) 0.6L, Monocytes # (Auto) 0.3, Eosinophils # (Auto) 0.0, Basophils # (Auto) 0.0, Large Unclassified Cells % 1.6 , Large Unclassified Cells # 0.1, Anion Gap 4L, Glomerular Filtration Rate > 60.0, Blood Urea Nitrogen 24H, Creatinine 1.00, Sodium Level 140, Potassium Level 4.0, Chloride Level 105, Carbon Dioxide Level 31, Calcium Level 8.3L CBC/BMP Laboratory Tests 09/18/16 11:42 09/18/16 17:39 09/18/16 23:32 09/19/16 04:39 Red Blood Count 2.49 L, Mean Corpuscular Volume 98.8 H, Mean Corpuscular Hemoglobin 34.4 H, Mean Corpuscular Hemoglobin Concent 34.8, Red Cell Distribution Width 15.7 H, Neutrophils (%) (Auto) 73.3 H, Lymphocytes (%) (Auto ) 15.0 L, Monocytes (%) (Auto) 8.4 H, Eosinophils (%) (Auto) 1.4, Basophils (%) (Auto) 0.3, Neutrophils # (Auto) 2.6, Lymphocytes # (Auto) 0.6 L, Monocytes # ( Auto) 0.3, Eosinophils # (Auto) 0.0, Basophils # (Auto) 0.0, Calcium Level 8.3 L SKIP CONNELL MD Sep 19, 2016 10:37
[2016-09-19 12:00] VITALS: BP 100/50
[2016-09-19] MEDS: BACITRACIN OINT 30GM TOP SCH (12:00)
[2016-09-19 13:00] LABS: MAGNESIUM LEVEL 1.6 MG/DL (1.8-2.4); PHOSPHORUS LEVEL 2.2 MG/DL (2.5-4.9)
[2016-09-19 16:00] VITALS: BP 122/56
[2016-09-19] MEDS ORDERED: FUROSEMIDE 20 MG/2 ML VIAL (J1940) IV ONE (16:00)
[2016-09-19] MEDS ORDERED: MAG SULF 1GM/100ML (MAG RUN) 1 GM in APPROPRIATE DILUENT 1 EA IV ONE (16:00)
--- NOTE | 2016-09-19 16:39 | IPN ---
DATE: 09/19/2016 SUBJECTIVE: The patient was seen and examined at the bedside today morning. The patient was getting nebulization when I saw him this morning. His intravenous (IV) fluids have been held. The patient denies any active complaints at this time. His renal function is stable. REVIEW OF SYSTEMS: The patient denies any fevers, chills, rigors, headaches, nausea, vomiting, chest pain. He does report some shortness of breath. He is getting nebulization for that. He denies any pain abdomen, constipation, or diarrhea. The patient does report some lower extremity edema. Rest of review of systems is negative. OBJECTIVE: VITAL SIGNS: Temperature is 97.7 degrees Fahrenheit. Blood pressure is 100/50. Pulse is 67, respiratory rate of 22, saturating 97% on room air. INTAKE AND OUTPUT: Urine output recorded as 825 mL yesterday, 650 mL so far today since overnight. Weight in the bed scale is 77.6 kg. PHYSICAL EXAMINATION: GENERAL: The patient is awake, alert, oriented times three, lying in bed in no apparent distress. HEAD/NECK: Extraocular muscles intact. Pupils equal, round, and reactive to light. Mucous membranes are moist. Neck is supple. There is no jugular venous distention (JVD). CARDIOVASCULAR: S1, S2, regular rate. No murmur, rub, or gallop. RESPIRATORY: The patient has mild expiratory rhonchi at the bases. The patient has scoliosis as well. ABDOMEN: Soft. Positive bowel sounds. Nontender. No ascites. No organomegaly. The patient has a right lower quadrant renal allograft with no tenderness. EXTREMITIES: No clubbing or cyanosis. The patient has 1+ edema of the bilateral lower extremities. CENTRAL NERVOUS SYSTEM ([employer] [facility] [facility]IT): No focal neurological deficit. Power is 5/5 in all extremities. PSYCHIATRIC: Normal mood and affect. LABORATORY DATA: CBC showed a WBC of 3.5, hemoglobin is 8.1, platelets are 36. BMP today morning showed sodium 140, potassium 4, chloride 105, bicarbonate 31, BUN 24, creatinine is 1, lactic acid 1.6. GFR more than 60. Calcium 8.3. Phosphorus 2.2. Magnesium 1.6. IMAGING: CT chest done yesterday showed small lower lobe pleural effusions with consolidation of the left lung, suspicious for pneumonia. CURRENT INPATIENT MEDICATIONS: The patient's medications were all reviewed by me. His IV fluids have been held. I have ordered magnesium sulfate 1 gram IV times one does. The patient continues to be on a Sandostatin drip. I have started the patient on potassium phosphate 500 mg by mouth daily. There is no other change in the medications today as compared with yesterday. ASSESSMENT: A 71-year-old male with past medical history of kidney transplant, with stable renal function, baseline creatinine of around one, admitted this time because of rectal bleeding. PLAN: 1. Kidney transplant status: The patient's renal function is stable. Continue current dose of prednisone 5 mg by mouth daily, and azathioprine 50 mg by mouth daily. 2. Hypomagnesemia: The patient was given magnesium 1 gram IV times one dose today. 3. Hypophosphatemia: The patient's home dose of phosphorus is K-phos 500 mg by mouth daily. I have restarted the phosphorus at this time. 4. Acute blood loss anemia. The patient's hemoglobin is 8.1, which is acceptable at this time. If hemoglobin drops further, the patient can be given a dose of packed red blood cell (PRBC) transfusion. However, if the patient gets blood, he should get a dose of Lasix as well. 5. Lower extremity edema. The patient got multiple blood transfusions and IV fluids during this admission. I am going to give him a small dose of Lasix to get rid of the edema.
[2016-09-19] MEDS: K-PHOS ORIGINAL (POT.ACID PHOSPHATE) 500MG TAB PO SCH (17:03)
[2016-09-19 20:00] VITALS: BP 119/58
[2016-09-19] MEDS: TAMSULOSIN 0.4 MG CAP PO SCH (21:29)
[2016-09-19] MEDS: OCTREOTIDE ACETATE 1,200 MCG in NS 238.8 ML IV SCH (23:08)
[2016-09-19 23:59] VITALS: BP 100/52
[2016-09-20] MEDS ORDERED: SLF 3 ML SYR IV PRN (04:00)
[2016-09-20 04:45] VITALS: BP 113/53
[2016-09-20 05:47] LABS: BASO % 0.9 % (0.0-1.0); EOS # 0.1 K/mm3 (0.0-0.50); EOS % 2.2 % (0.0-3.0); LARGE UNSTAINED CELL % 1.5 % (0.0-4.0); LYMPH # 0.5 K/mm3 (1.5-4.5); LYMPH % 16.8 % (24.0-44.0); MEAN CORPUSCULAR HGB CONC 34.5 g/dl (32.0-36.5); MEAN CORPUSCULAR VOLUME 98.6 fl (80.0-96.0); MONO # 0.2 K/mm3 (0.0-0.8); MONO % 5.7 % (0.0-5.0); NEUTROPHILS % 72.9 % (36.0-66.0); RED CELL DISTRIBUTION WIDTH 15.3 % (11.5-14.5); WHITE BLOOD COUNT 2.8 K/mm3 (4.0-10.0)
[2016-09-20 05:49] LABS: PLATELET COUNT, AUTOMATED 32 k/mm3 (150-450)
[2016-09-20] MEDS: SLF 3 ML SYR IV SCH ×3 (06:00→21:22)
[2016-09-20 06:03] LABS: ANION GAP 5 MEQ/L (8-16); BLOOD UREA NITROGEN 16 MG/DL (7-18); CALCIUM LEVEL 8.1 MG/DL (8.8-10.2); CARBON DIOXIDE LEVEL 32 MEQ/L (21-32); CHLORIDE LEVEL 103 MEQ/L (98-107); CREATININE FOR GFR 0.91 MG/DL (0.70-1.30); GLOMERULAR FILTRATION RATE > 60.0 (>42); GLUCOSE, FASTING 125 MG/DL (83-110); POTASSIUM SERUM 3.7 MEQ/L (3.5-5.1); SODIUM LEVEL 140 MEQ/L (136-145)
[2016-09-20] MEDS: IPRATROPIUM 0.5MG/ALBUTEROL 2.5MG INH SOL UD 3ML (DUONEB)(J7620) NEB SCH ×4 (07:15→20:01)
[2016-09-20 08:00] VITALS: BP 131/59
[2016-09-20 08:19] LABS: MAGNESIUM LEVEL 1.9 MG/DL (1.8-2.4); PHOSPHORUS LEVEL 2.9 MG/DL (2.5-4.9)
[2016-09-20] MEDS: PANTOPRAZOLE 40MG INJ (PROTONIX) (C9113) IV SCH ×2 (09:07→21:21)
[2016-09-20] MEDS: predniSONE 5 MG TAB PO SCH (09:07)
[2016-09-20] MEDS: K-PHOS ORIGINAL (POT.ACID PHOSPHATE) 500MG TAB PO SCH (09:07)
[2016-09-20] MEDS: azaTHIOprine 50 MG TAB (J7500) PO SCH (09:07)
[2016-09-20] MEDS ORDERED: FUROSEMIDE 20 MG/2 ML VIAL (J1940) IV ONE (09:30)
[2016-09-20 11:21] VITALS: BP 96/53
--- NOTE | 2016-09-20 14:04 | IPNPDOC ---
Subjective Date Seen The patient was seen on 09/20/16. Subjective Chief Complaint/HPI The patient is a 71-year-old male admitted with a reason for visit of Gib ( Gastrointestinal Bleeding). Events since last encounter Feeling better, stools not bloody for the last two, tolerating diet as ordered, would prefer advanced diet, no chest pain, not sob Constitutional: Denies: Chills, Fever Pulmonary: Denies: Dyspnea, Cough Cardiovascular: Denies: Chest Pain, Palpitations Gastrointestinal: Denies: Nausea, Vomiting, Abdominal Pain Objective Physical Examination General Exam: Positive: Alert, Cooperative, No Acute Distress Eye Exam: Negative: Sclera icteric Neck Exam: Positive: Supple Chest Exam: Positive: Diminished, Negative: Rales, Rhonchi, Wheezing Heart Exam: Positive: Rate Normal, Regular Rhythm, Normal S1, Normal S2 Telemetry: Positive: No significant arrhythmia Abdomen Exam: Positive: Normal bowel sounds, Soft, Negative: Tenderness Extremity Exam: Negative: Edema Assessment /Plan Problems (1) Gastrointestinal hemorrhage Status: Acute Problem Text: I discussed with Dr. Perez by phone 09/19/16. Suspected lower gi bleed. Has history of both esophageal varices and diverticulosis Following h/h, trending downward with 12 bms noted. No plan for endoscopy today, follow clinically Rate of stooling much less, no blood with last two bms (09/20/16) Will transfuse 1 unit prbc, will give lasix with transfusion I d/w Dr. Gudino in person 09/21/16 (2) Diastolic CHF Status: Chronic Problem Text: history of, but may need diuresis with transfusion Has had some shortness of breath, but a technically complex portable cxr suggests left effusion- followup ct showed minimal effusion (3) Restrictive lung disease Status: Chronic (4) Polycystic kidney disease Status: Chronic Problem Text: and polycystic liver (5) Testicular cancer Status: Chronic (6) Kidney transplant status, cadaveric Onset Date: 01/29/2014 Status: Chronic Problem Text: Nephrology consulted (7) Dog bite of forearm Status: Acute Problem Text: seven days ago, his son's dog bit his left forearm, the dog is known to him has been vaccinated according to patient He has no pain, or drainage The area is reddened and he has been cleaning it with hydrogen peroxide He does not know when his last tetanus vaccine was received Executed Plan: Tetanus vaccine no role for oral antibiotics at seven days no need for rabies vaccine Plan/VTE VTE Prophylaxis Ordered?: Yes (mechanical) VS, I&O, 24H, Fishbone Vital Signs/I&O Vital Signs Date Time Temp Pulse Resp B/P (MAP) Pulse Ox O2 Delivery O2 Flow Rate FiO2 09/20/16 08:00 97.9 56 18 131/59 (83) 98 Room Air I&O- Last 24 Hours up to 6 AM 09/20/16 06:00 Intake Total 1810 ml Output Total 2350 ml Balance -540 ml Laboratory Data 24H LABS Laboratory Tests 2 09/20/16 04:40: White Blood Count 2.8L, Red Blood Count 2.29L, Hemoglobin 7.8L, Hematocrit 22.6L , Mean Corpuscular Volume 98.6H, Mean Corpuscular Hemoglobin 34.0H, Mean Corpuscular Hemoglobin Concent 34.5, Red Cell Distribution Width 15.3H, Platelet Count 32L, Neutrophils (%) (Auto) 72.9H, Lymphocytes (%) (Auto) 16.8L, Monocytes (%) (Auto) 5.7H, Eosinophils (%) (Auto) 2.2, Basophils (%) (Auto) 0.9 , Neutrophils # (Auto) 2.0, Lymphocytes # (Auto) 0.5L, Monocytes # (Auto) 0.2, Eosinophils # (Auto) 0.1, Basophils # (Auto) 0.0, Large Unclassified Cells % 1.5 , Large Unclassified Cells # 0.0, Anion Gap 5L, Glomerular Filtration Rate > 60.0, Blood Urea Nitrogen 16, Creatinine 0.91, Sodium Level 140, Potassium Level 3.7, Chloride Level 103, Carbon Dioxide Level 32, Calcium Level 8.1L, Phosphorus Level 2.9#, Magnesium Level 1.9 CBC/BMP Laboratory Tests 09/19/16 16:21 09/20/16 04:40 Red Blood Count 2.29 L, Mean Corpuscular Volume 98.6 H, Mean Corpuscular Hemoglobin 34.0 H, Mean Corpuscular Hemoglobin Concent 34.5, Red Cell Distribution Width 15.3 H, Neutrophils (%) (Auto) 72.9 H, Lymphocytes (%) (Auto ) 16.8 L, Monocytes (%) (Auto) 5.7 H, Eosinophils (%) (Auto) 2.2, Basophils (%) (Auto) 0.9, Neutrophils # (Auto) 2.0, Lymphocytes # (Auto) 0.5 L, Monocytes # ( Auto) 0.2, Eosinophils # (Auto) 0.1, Basophils # (Auto) 0.0, Calcium Level 8.1 L SKIP CONNELL MD Sep 20, 2016 14:04
[2016-09-20] MEDS: BACITRACIN OINT 30GM TOP SCH (16:00)
[2016-09-20 16:10] VITALS: BP 109/55
[2016-09-20 19:27] VITALS: BP 125/58
[2016-09-20] MEDS: TAMSULOSIN 0.4 MG CAP PO SCH (21:21)
[2016-09-20 23:58] VITALS: BP 115/56
[2016-09-21 04:02] VITALS: BP 109/55
[2016-09-21] MEDS: SLF 3 ML SYR IV SCH ×3 (04:05→20:37)
[2016-09-21 05:14] LABS: BASO % 0.4 % (0.0-1.0); EOS # 0.1 K/mm3 (0.0-0.50); EOS % 3.9 % (0.0-3.0); LARGE UNSTAINED CELL % 1.1 % (0.0-4.0); LYMPH # 0.5 K/mm3 (1.5-4.5); LYMPH % 19.9 % (24.0-44.0); MEAN CORPUSCULAR HEMOGLOBIN 33.8 pg (27.0-33.0); MEAN CORPUSCULAR HGB CONC 34.3 g/dl (32.0-36.5); MEAN CORPUSCULAR VOLUME 98.6 fl (80.0-96.0); MONO # 0.2 K/mm3 (0.0-0.8); MONO % 6.3 % (0.0-5.0); NEUTROPHILS # 1.6 K/mm3 (1.8-7.7); NEUTROPHILS % 68.5 % (36.0-66.0); RED CELL DISTRIBUTION WIDTH 16.9 % (11.5-14.5); WHITE BLOOD COUNT 2.4 K/mm3 (4.0-10.0)
[2016-09-21 05:22] LABS: ANION GAP 5 MEQ/L (8-16); BLOOD UREA NITROGEN 13 MG/DL (7-18); CALCIUM LEVEL 8.2 MG/DL (8.8-10.2); CARBON DIOXIDE LEVEL 32 MEQ/L (21-32); CHLORIDE LEVEL 102 MEQ/L (98-107); CREATININE FOR GFR 0.88 MG/DL (0.70-1.30); GLOMERULAR FILTRATION RATE > 60.0 (>42); GLUCOSE, FASTING 120 MG/DL (83-110); POTASSIUM SERUM 3.7 MEQ/L (3.5-5.1); SODIUM LEVEL 139 MEQ/L (136-145)
[2016-09-21 05:26] LABS: PLATELET COUNT, AUTOMATED 37 k/mm3 (150-450)
[2016-09-21] MEDS: IPRATROPIUM 0.5MG/ALBUTEROL 2.5MG INH SOL UD 3ML (DUONEB)(J7620) NEB SCH ×4 (07:15→20:00)
[2016-09-21 08:00] VITALS: BP 103/55
[2016-09-21] MEDS: predniSONE 5 MG TAB PO SCH (08:56)
[2016-09-21] MEDS: K-PHOS ORIGINAL (POT.ACID PHOSPHATE) 500MG TAB PO SCH (08:56)
[2016-09-21] MEDS: azaTHIOprine 50 MG TAB (J7500) PO SCH (08:56)
[2016-09-21] MEDS: PANTOPRAZOLE 40MG INJ (PROTONIX) (C9113) IV SCH ×2 (08:56→20:37)
[2016-09-21] MEDS: BACITRACIN OINT 30GM TOP SCH (08:57)
[2016-09-21 12:00] VITALS: BP 93/55
[2016-09-21] MEDS ORDERED: FUROSEMIDE 20 MG/2 ML VIAL (J1940) IV ONE (12:00)
--- NOTE | 2016-09-21 12:11 | IPN ---
DATE OF SERVICE: 09/20/2016 SUBJECTIVE: Patient was seen and examined at the bedside today morning. Patient is afebrile, hemodynamically stable; however, there is a drop in his hemoglobin at this time. His creatinine is stable at this time. Patient was given a dose of Lasix yesterday. He had a good urine output in response to Lasix. REVIEW OF SYSTEMS: Patient denies any fevers, chills, rigors, headaches, nausea, vomiting or chest pain. He does report some shortness of breath on exertion. He denies any pain abdomen or constipation. He reports that he does not see any blood in his stools at time. Rest of review of systems is negative. OBJECTIVE: VITAL SIGNS: Temperature is 97.9 degrees Fahrenheit. Blood pressure is 131/59. Pulse is 56, respiratory rate of 18, saturating 98% on room air. INTAKE AND OUTPUT: Urine output recorded as 2200 mL yesterday. Weight in the bed scale is 77.1 kg. PHYSICAL EXAMINATION: GENERAL: Patient is awake, alert, oriented times three, lying in bed in no apparent distress. HEAD/NECK: Extraocular muscles intact. Pupils equally round and reactive to light. Mucous membranes are moist. Neck is supple. There is no jugular venous distention (JVD). CARDIOVASCULAR: S1, S2, regular rate. No murmur, rub or gallop. RESPIRATORY: Patient has mild expiratory rhonchi at the bases and patient has scoliosis as well. ABDOMEN: Soft. Positive bowel sounds. Nontender. No ascites. No organomegaly. Patient has a right lower quadrant renal allograft with no tenderness or bruit. EXTREMITIES: No clubbing or cyanosis. Patient has 1+ edema of the bilateral lower extremities. CENTRAL NERVOUS SYSTEM ([employer]): No focal neurological deficit. Power is 5/5 in all extremities. LABORATORY DATA: CBC showed a WBC of 2.8, hemoglobin was 7.8 today morning and hematocrit was 22.6, platelets of 32. BMP today morning showed sodium 140, potassium 3.7, chloride 103, bicarbonate 32, BUN 16, creatinine 0.9. Calcium 8.1. Phosphorus 2.9. Magnesium 1.9. CURRENT INPATIENT MEDICATIONS: Patient's medications were all reviewed by me. His Sandostatin drip has been stopped. Patient was given another dose of Lasix 20 mg IV to be given with blood transfusion. There is no other change in the medications today. ASSESSMENT: 71-year-old male with past medical history of kidney transplant with stable renal function, baseline creatinine of one, admitted this time because of rectal bleeding. PLAN: 1. Kidney transplant status. Patient's renal function is stable. Continue current dose of prednisone 5 mg by mouth daily, azathioprine 50 mg by mouth daily. 2. Acute blood loss anemia. Patient's hemoglobin again dropped. He is going to get 1 unit of packed red blood cells (PRBCs) transfusion. However, he will get one dose of Lasix 20 mg intravenously (IV) with the PRBC transfusion to prevent fluid overload. 3. Hypophosphatenia. Phosphorus level has improved today. Continue current dose of K-Phos 500 mg by mouth daily. 4. Hypomagnesemia. Magnesium level has improved. Once patient starts tolerating regular diet, I shall restart the patient on his home dose of magnesium oxide 400 mg by mouth daily. 5. Lower extremity edema. It is secondary to multiple blood transfusions and IV fluid hydration because of the bleeding. IV fluids were held. He was given one dose of Lasix yesterday. He will get another dose of Lasix with blood transfusion today. Once patient becomes stable and his hemoglobin stabilizes, he will be given gentle diuresis to help improve lower extremity edema.
[2016-09-21 16:00] VITALS: BP 105/76
--- NOTE | 2016-09-21 16:49 | IPNPDOC ---
Subjective Date Seen The patient was seen on 09/21/16. Subjective Chief Complaint/HPI The patient is a 71-year-old male admitted with a reason for visit of Gib ( Gastrointestinal Bleeding). Events since last encounter Feeling well, tolerating diet, walking without assistance-- no blood loss with bowel movements, no chest pain, not short of breath Constitutional: Denies: Chills, Fever Pulmonary: Denies: Dyspnea, Cough Cardiovascular: Denies: Chest Pain, Palpitations Gastrointestinal: Denies: Nausea, Vomiting, Abdominal Pain Objective Physical Examination General Exam: Positive: Alert, Cooperative, No Acute Distress Eye Exam: Negative: Sclera icteric ENT Exam: Positive: Mucous membr. moist/pink Neck Exam: Positive: Supple Chest Exam: Positive: Diminished, Negative: Rales, Rhonchi, Wheezing Heart Exam: Positive: Rate Normal, Regular Rhythm, Normal S1, Normal S2 Telemetry: Positive: No significant arrhythmia Abdomen Exam: Positive: Normal bowel sounds, Soft, Negative: Tenderness Extremity Exam: Negative: Edema Psych Exam: Positive: Mental status NL Assessment /Plan Problems (1) Gastrointestinal hemorrhage Status: Acute Problem Text: I discussed with Dr. Perez by phone 09/19/16. Suspected lower gi bleed. Has history of both esophageal varices and diverticulosis Following h/h, trending downward with 12 bms noted. No plan for endoscopy today, follow clinically Rate of stooling much less, no blood with last two bms (09/20/16) Will transfuse 1 unit prbc, will give lasix with transfusion I d/w Dr. Gudino in person 09/21/16- plan to monitor h&h at least another night (2) Diastolic CHF Status: Chronic Problem Text: history of, but may need diuresis with transfusions Has had some shortness of breath, but a technically complex portable cxr suggests left effusion- followup ct showed minimal effusion compensated 09/21/16 (3) Restrictive lung disease Status: Chronic (4) Polycystic kidney disease Status: Chronic Problem Text: and polycystic liver (5) Testicular cancer Status: Chronic (6) Kidney transplant status, cadaveric Onset Date: 01/29/2014 Status: Chronic Problem Text: Nephrology consulted (7) Dog bite of forearm Status: Acute Problem Text: seven days ago, his son's dog bit his left forearm, the dog is known to him has been vaccinated according to patient He has no pain, or drainage The area is reddened and he has been cleaning it with hydrogen peroxide He does not know when his last tetanus vaccine was received Executed Plan: Tetanus vaccine no role for oral antibiotics at seven days no need for rabies vaccine Plan/VTE VTE Prophylaxis Ordered?: Yes (mechanical) VS, I&O, 24H, Fishbone Vital Signs/I&O Vital Signs Date Time Temp Pulse Resp B/P (MAP) Pulse Ox O2 Delivery O2 Flow Rate FiO2 09/21/16 08:00 97.7 65 20 103/55 (71) 94 Room Air I&O- Last 24 Hours up to 6 AM 09/21/16 06:00 Intake Total 2310 ml Output Total 1600 ml Balance 710 ml Laboratory Data 24H LABS Laboratory Tests 2 09/21/16 04:29: White Blood Count 2.4L, Red Blood Count 2.51L, Hemoglobin 8.5L, Hematocrit 24.7L , Mean Corpuscular Volume 98.6H, Mean Corpuscular Hemoglobin 33.8H, Mean Corpuscular Hemoglobin Concent 34.3, Red Cell Distribution Width 16.9H, Platelet Count 37L, Neutrophils (%) (Auto) 68.5H, Lymphocytes (%) (Auto) 19.9L, Monocytes (%) (Auto) 6.3H, Eosinophils (%) (Auto) 3.9H, Basophils (%) (Auto) 0.4 , Neutrophils # (Auto) 1.6L, Lymphocytes # (Auto) 0.5L, Monocytes # (Auto) 0.2, Eosinophils # (Auto) 0.1, Basophils # (Auto) 0.0, Large Unclassified Cells % 1.1 , Large Unclassified Cells # 0.0, Anion Gap 5L, Glomerular Filtration Rate > 60.0, Blood Urea Nitrogen 13, Creatinine 0.88, Sodium Level 139, Potassium Level 3.7, Chloride Level 102, Carbon Dioxide Level 32, Calcium Level 8.2L CBC/BMP Laboratory Tests 09/21/16 04:29 Red Blood Count 2.51 L, Mean Corpuscular Volume 98.6 H, Mean Corpuscular Hemoglobin 33.8 H, Mean Corpuscular Hemoglobin Concent 34.3, Red Cell Distribution Width 16.9 H, Neutrophils (%) (Auto) 68.5 H, Lymphocytes (%) (Auto ) 19.9 L, Monocytes (%) (Auto) 6.3 H, Eosinophils (%) (Auto) 3.9 H, Basophils (% ) (Auto) 0.4, Neutrophils # (Auto) 1.6 L, Lymphocytes # (Auto) 0.5 L, Monocytes # (Auto) 0.2, Eosinophils # (Auto) 0.1, Basophils # (Auto) 0.0, Calcium Level 8.2 L SKIP CONNELL MD Sep 21, 2016 16:49
[2016-09-21 19:49] VITALS: BP 117/57
[2016-09-21] MEDS: TAMSULOSIN 0.4 MG CAP PO SCH (20:37)
--- NOTE | 2016-09-21 21:54 | IPN ---
DATE: 09/21/2016 SUBJECTIVE: The patient was seen and examined at the bedside today in the morning. He is afebrile. Hemodynamically stable. Renal function is stable at this time. However, there is still some drop in his hemoglobin from 9.9 to 8.5 today. The patient reports that he otherwise feels better. He denies any active blood in the stools and he reports that he walked in the hallway with physical therapy. REVIEW OF SYSTEMS: The patient denies any fever, chills, rigors, headache, nausea, vomiting or chest pain. He does report mild shortness of breath on walking around. He denies any pain in abdomen, constipation, diarrhea or blood in the stools. The rest of review of systems is negative. OBJECTIVE: VITAL SIGNS: Temperature is 97.7 degrees Fahrenheit. Blood pressure is 103/55, pulse is 65, respiratory rate of 18, saturating 94% on room air. Intake and output: Urine output recorded as 2 liters yesterday, 1,150 mL so far today. Weight in the bed scale is 76 kg. PHYSICAL EXAMINATION: GENERAL: The patient is awake, alert, oriented times three, sitting in the bed, in no apparent distress. HEAD AND NECK EXAM: Extraocular muscles intact. Pupils equally round and reactive to light. Mucous membranes are moist. Neck is supple. There is no jugular venous distension (JVD). CARDIOVASCULAR: S1, S2 regular rate. No murmur, rub or gallop. RESPIRATORY: The patient has scoliosis and mild end expiratory rhonchi at the bases. ABDOMEN: Soft. Positive bowel sounds. Nontender. No ascites. No organomegaly. The patient has a right lower quadrant renal allograft with no tenderness. EXTREMITIES: No clubbing or cyanosis. The patient has 1+ edema on the bilateral lower extremities. CENTRAL NERVOUS SYSTEM: No focal neurological deficit. Power is 5/5 in all extremities. LABORATORY REVIEW: Complete blood count (CBC) showed a white blood count (WBC) of 2.4, hemoglobin 8.5, platelets are 37. Basic metabolic panel (BMP) showed sodium 139, potassium 3.7, chloride 102, bicarbonate 32, BUN is 13, creatine is 0.88. Calcium is 8.2. CURRENT INPATIENT MEDICATIONS: The patient's medications are all reviewed by me. The patient was given another dose of Lasix 20 mg IV this morning. There is no other change in the medications today as compared with yesterday. ASSESSMENT: 71-year-old male with past medical history of prior kidney transplant with stable renal function, baseline creatine of around 1, admitted this time because of rectal bleeding. PLAN: 1. Kidney transplant status. The patient's renal function is stable. Continue current dose of prednisone 5 mg daily, azathioprine 50 mg by mouth daily. 2. Acute blood loss anemia. The patient got one unit packed red blood cell transfusion yesterday. His hemoglobin went up to 9.9 after transfusion. However, it is down to 8.5 today. The patient is otherwise hemodynamically stable. 3. Lower extremity edema. The patient was given a dose of Lasix yesterday. I am going to give him another dose of Lasix 20 mg IV today. DISCHARGE PLANNING: It is okay to discharge the patient from a nephrology standpoint if his hemoglobin level stays stable by tomorrow morning. Plan of care was discussed with the hospitalist, Dr. Speedy To.
[2016-09-21 23:59] VITALS: BP 104/56
[2016-09-22] MEDS ORDERED: ACETAMINOPHEN TAB 650MG DOSE (2X325MG) PO PRN (01:00)
[2016-09-22 04:00] VITALS: BP 103/53
[2016-09-22] MEDS: SLF 3 ML SYR IV SCH (05:50)
[2016-09-22 06:12] LABS: BASO % 0.9 % (0.0-1.0); EOS # 0.1 K/mm3 (0.0-0.50); EOS % 3.1 % (0.0-3.0); LARGE UNSTAINED CELL % 1.3 % (0.0-4.0); LYMPH # 0.5 K/mm3 (1.5-4.5); LYMPH % 19.7 % (24.0-44.0); MEAN CORPUSCULAR HEMOGLOBIN 32.9 pg (27.0-33.0); MEAN CORPUSCULAR HGB CONC 33.4 g/dl (32.0-36.5); MEAN CORPUSCULAR VOLUME 98.6 fl (80.0-96.0); MONO # 0.2 K/mm3 (0.0-0.8); NEUTROPHILS # 1.5 K/mm3 (1.8-7.7); NEUTROPHILS % 67.1 % (36.0-66.0); RED CELL DISTRIBUTION WIDTH 16.9 % (11.5-14.5); WHITE BLOOD COUNT 2.3 K/mm3 (4.0-10.0)
[2016-09-22 06:15] LABS: PLATELET COUNT, AUTOMATED 42 k/mm3 (150-450)
[2016-09-22 06:22] LABS: ANION GAP 7 MEQ/L (8-16); BLOOD UREA NITROGEN 14 MG/DL (7-18); CALCIUM LEVEL 8.2 MG/DL (8.8-10.2); CARBON DIOXIDE LEVEL 31 MEQ/L (21-32); CHLORIDE LEVEL 102 MEQ/L (98-107); CREATININE FOR GFR 0.86 MG/DL (0.70-1.30); GLOMERULAR FILTRATION RATE > 60.0 (>42); GLUCOSE, FASTING 116 MG/DL (83-110); MAGNESIUM LEVEL 1.8 MG/DL (1.8-2.4); PHOSPHORUS LEVEL 2.9 MG/DL (2.5-4.9); POTASSIUM SERUM 3.6 MEQ/L (3.5-5.1); SODIUM LEVEL 140 MEQ/L (136-145)
[2016-09-22] MEDS: IPRATROPIUM 0.5MG/ALBUTEROL 2.5MG INH SOL UD 3ML (DUONEB)(J7620) NEB SCH ×2 (07:29→11:49)
[2016-09-22 07:30] VITALS: BP 146/66
[2016-09-22] MEDS ORDERED: MAG SULF 1GM/100ML (MAG RUN) 1 GM in APPROPRIATE DILUENT 1 EA IV ONE (08:00)
[2016-09-22] MEDS: predniSONE 5 MG TAB PO SCH (08:49)
[2016-09-22] MEDS: PANTOPRAZOLE 40MG INJ (PROTONIX) (C9113) IV SCH (08:49)
[2016-09-22] MEDS: K-PHOS ORIGINAL (POT.ACID PHOSPHATE) 500MG TAB PO SCH (08:49)
[2016-09-22] MEDS: azaTHIOprine 50 MG TAB (J7500) PO SCH (08:49)
[2016-09-22] MEDS: BACITRACIN OINT 30GM TOP SCH (08:50)
[2016-09-22] MEDS ORDERED: PRED5TA PO (10:32)
--- NOTE | 2016-09-22 16:07 | DSES ---
DATE OF ADMISSION: 09/17/2016 DATE OF DISCHARGE: 09/22/2016 DISCHARGE DIAGNOSIS: Gastrointestinal bleed. SECONDARY DIAGNOSES: 1. Diastolic congestive heart failure. 2. 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 3. Dog bite to the right forearm. 4. Restrictive lung disease. 5. Benign prostatic hypertrophy (BPH). HOSPITAL COURSE: Patient is a 71-year-old man who presented to the emergency room on 09/17/2016 with four episodes of melena with some crampy abdominal pain. Patient had reportedly increased taking aspirin. He was taking a full dose, 325 mg, several times a day for arthritic pain as opposed to taking acetaminophen, which he had been taking previously, because someone gave him the aspirin for free. He was found to have a gastrointestinal (GI) bleed during his stay. He did have 1 unit packed red blood cells transfused. Given that he did have some elevation in his BUN and he is a transplant patient, he was seen by nephrology, who continued his prednisone, azathioprine. His renal function remained fairly stable. The patient seemed globally stabilized. The case was discussed with Dr. Perez, who actually felt that this was more related to diverticular bleed than to upper GI bleed, given that the patient has a history of esophageal varices. Patient remained stable. He was monitored in the hospital. His hemoglobin and hematocrit (H and H) remained stable. His melena resolved with proton pump inhibitor (PPI). SUBJECTIVE: The patient reports that he feels great, he feels back to normal. He wants to go home and has no complaints. OBJECTIVE: VITAL SIGNS: Temperature 97.6, pulse 76, respiratory rate 20, blood pressure 146/66, oxygen saturation 96% on room air. GENERAL: Her is a morbidly obese, very pleasant, elderly man laying in bed at a 30 degree angle. He is comfortable. He is in no acute distress. He is quite conversational. HEENT: Cranial nerves II-XII are grossly intact. He has moist mucous membranes. No appreciable elevation of central venous pressure at this time. CARDIOVASCULAR EXAMINATION: S1, S2. Regular. RESPIRATORY EXAMINATION: Clear. ABDOMINAL EXAMINATION: Obese, but benign. EXTREMITIES: No clubbing, cyanosis or edema. LABORATORY STUDIES: WBC 2.3, hemoglobin 8.1, hematocrit 27.2, platelet count 42. Chemistry panel: Sodium 140, potassium 3.6, chloride 102, bicarbonate 31, BUN 14, creatinine 0.8, magnesium 1.8, repleted. IMAGING: During his stay, the patient had a CT scan of the abdomen and pelvis on 09/17/2016, which revealed diffuse, left-sided diverticulosis, innumerable low attenuation liver lesions, splenomegaly, absence of bilateral [place] kidneys. Transplanted kidney in the right lower quadrant, with a 2 mm nonobstructing stone, a moderate amount of pelvic ascites, severe, stable scoliosis. Patient did also have a chest CT, which revealed small left lower lobe pleural effusion and consolidation of the left lower lung, scarring and numerous cystic lesions throughout the liver. ASSESSMENT AND PLAN: 1. This is a 71-year-old man with resolved gastrointestinal (GI) bleed, suspected to be a lower GI bleed related to diverticulosis. His bowel movements have resolved. He is not having any further blood in his stool. He was made stable after 1 unit of packed red blood cells and an additional observation period of 24 hours. He is doing quite well on and appears to be at his baseline. At this time, he is medically stable for discharge home. He should follow up with his primary care provider within one week and follow up with his crm administrator within two weeks. He has been advised to return to the emergency room (ER) if he has any further bleeding or have symptoms of anemia, which was discussed at length with the patient. 2. Diastolic congestive heart failure. Was fairly euvolemic during his stay and compensated; however, he did receive Lasix with blood transfusion. 3. Documented history of restrictive lung disease. Stable. 4. Polycystic kidney disease. Patient has polycystic kidney and liver. He has a history of esophageal varices in the past and innumerable cystic lesions in the liver on imaging. Please note the patient is status post kidney transplant on continued on immunosuppressive therapy. Nephrology's help was appreciated. I reviewed with him all his medications as they were previously. 5. Dog bite in the forearm. As discussed by Dr. To with the patient previously, the dog was known to have received all vaccinations. There was no evidence of infection. Patient received a tetanus vaccine while here. No role for antibiotics or rabies vaccine. 6. Benign prostatic hypertrophy (BPH). The patient will continue on torsemide. DISPOSITION: The patient is being discharged home. He is at his functional baseline. His clinical status is improved. He is to follow with his primary care physician (PCP) in seven days, nephrology within two weeks. His activity and diet are is as prior to admission. He is to return to the emergency room (ER) if his symptoms worsen. MEDICATIONS AT THE TIME OF DISCHARGE: - prednisone 5 mg daily - Tylenol 650 mg every 4 hours as needed for mild pain or fever - atorvastatin 10 mg at bedtime - azathioprine 50 mg daily - Calcitriol 0.25 mcg five days a week, Wednesday to Wednesday - calcium carbonate 1 gram twice a day - folic acid 1 mg daily - loratadine 10 mg daily - magnesium oxide 400 mg daily - Nitrostat 0.4 mg sublingually every 5 minutes as needed for chest pain times three doses. - Zofran 4 mg by mouth every 4 hours as needed for nausea. - Protonix 40 mg every evening - K-Phos 500 mg daily - Flomax 0.4 mg at bedtime Greater than 30 minutes spent organizing disposition.
--- NOTE | 2016-09-22 19:14 | IPN ---
DATE: 09/22/2016 SUBJECTIVE: The patient was seen and examined at the bedside today in the morning. His hemoglobin is stable today. It is up to 9.1 now. He denies any active bleeding. Renal function is stable. The patient is hemodynamically stable at this time. REVIEW OF SYSTEMS: The patient denies any fever, chills, rigors, headache, nausea, vomiting, chest pain, shortness of breath, pain in abdomen, constipation, diarrhea or bleedign per rectum, and he reports that he is getting ready to go home today. OBJECTIVE: VITAL SIGNS: Temperature is 97.6 degrees Fahrenheit, blood pressure is 146/66, pulse is 76, respiratory rate of 18, saturating 96% on room air. INTAKE/OUTPUT: Urine output recorded as 1.6 liters yesterday. Weight on the bed scale is 73.7 kg. PHYSICAL EXAMINATION: GENERAL: The patient is awake, alert, oriented times three, laying in bed, in no apparent distress. HEAD AND NECK EXAM: Extraocular muscles intact. Pupils equally round and reactive to light. Mucous membranes are moist. Neck is supple. There is no jugular venous distention (JVD). CARDIOVASCULAR: S1, S2, regular rate. No murmur, rub or gallop. RESPIRATORY: Chest is clear to auscultation bilaterally. The patient has scoliosis. ABDOMEN: Abdomen is soft. Positive bowel sounds, nontender. No ascites. No organomegaly. He has a right lower quadrant renal allograft, which is nontender. EXTREMITIES: No clubbing or cyanosis. Pulses are 2+. He has trace edema of the bilateral lower extremities. CENTRAL NERVOUS SYSTEM: No focal neurological deficit. Power is 5/5 in all extremities. LAB REVIEW: CBC showed a WBC of 2.3, hemoglobin is 9.1, platelets are 42. BMP showed sodium 140, potassium 3.6, chloride 102, bicarbonate 31. BUN is 14, creatinine is 0.86, phosphorus 2.9, magnesium 1.8. CURRENT INPATIENT MEDICATIONS: The patient's medications were all reviewed by me, and there is no change in the medications today as compared with yesterday. ASSESSMENT: A 71-year-old male with past medical history of a prior kidney transplant with stable renal function, baseline creatinine of around 1, admitted at this time because of rectal bleeding. PLAN: 1. Kidney transplant status. Continue current dose of prednisone 5 mg daily, azathioprine 50 mg daily. Renal function is stable at baseline. 2. Acute blood loss anemia. The patient's hemoglobin has stabilized at this time. It is 9.1 at this time. There is no active bleeding. No need of further blood transfusion. 3. Neutropenia and thrombocytopenia. The patient's absolute neutrophil count is more than 1500. Neutropenia is mild. His platelet count is gradually improving. No need of filgrastim administration at this time. The patient is afebrile. 4. Lower extremity edema. Edema is improved now. If needed, the patient will be given diuretics as an outpatient. 5. Discharge planing. It is okay to discharge the patient from a nephrology standpoint. The patient will need to followup with Dr. Smallwood within 2 weeks after discharge from the hospital.
--- NOTE | 2016-09-23 07:22 | ECGEPIP ---
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
[2017-01-31] MEDS ORDERED: LASI20TA PO (01:40)
[2017-01-31] MEDS ORDERED: AMIL5TA PO (01:40)
[2017-01-31] MEDS ORDERED: VENTAER INH (05:44)
[2017-01-31] MEDS ORDERED: LORA10TA2 PO (05:44)
[2017-01-31] MEDS ORDERED: AMIL25TA PO (05:45)
== END 2016-09-22 14:13 | disposition home or self-care (01) | DRG 378 ==
LOC: M ED 21:07 → M ED INP 22:08 → M PCU 09-18 00:13
PROVIDERS: ADMIT Internal Medicine Nephrology; ATTEND Internal Medicine
PROC: 30233N1 Transfusion of Nonautologous Red Blood Cells into Peripheral Vein, Percutaneous Approach (ICD-10-PCS; principal; 2016-09-20)
DX: K57.91 Diverticulosis of intestine, part unspecified, without perforation or abscess with bleeding (principal); Z94.0 Kidney transplant status; E87.2 Acidosis; D62 Acute posthemorrhagic anemia; I50.30 Unspecified diastolic (congestive) heart failure; Q61.3 Polycystic kidney, unspecified; Q44.6 Cystic disease of liver; R18.8 Other ascites; N25.81 Secondary hyperparathyroidism of renal origin; I85.00 Esophageal varices without bleeding; J98.4 Other disorders of lung; N40.0 Benign prostatic hyperplasia without lower urinary tract symptoms; E87.6 Hypokalemia; D69.6 Thrombocytopenia, unspecified; E83.42 Hypomagnesemia; E78.5 Hyperlipidemia, unspecified; Z79.52 Long term (current) use of systemic steroids; Z79.899 Other long term (current) drug therapy; Z85.47 Personal history of malignant neoplasm of testis; Z90.49 Acquired absence of other specified parts of digestive tract; Z88.0 Allergy status to penicillin; Z88.8 Allergy status to other drugs, medicaments and biological substances; Z95.5 Presence of coronary angioplasty implant and graft; Z87.891 Personal history of nicotine dependence

== ENCOUNTER 2016-10-05 22:59 | Observation (INO) | payer MEDICARE ==
[~2016-10-05] VITALS: Ht 165.1 cm; Wt 78.1 kg
[~2016-10-05 22:59] MED LIST changes: +ATOR1TAB19 PO; +CALC500C16 PO; +FLOM5CAP PO; +FOLI1TAB4 PO; +ONDA4TAB6 PO; +PRED5TA PO
[2016-10-05] MEDS ORDERED: TACR0.5C3 PO (23:27)
[2016-10-05] MEDS ORDERED: IPRATROPIUM 0.5MG/ALBUTEROL 2.5MG INH SOL UD 3ML (DUONEB)(J7620) NEB ONE (23:30)
[2016-10-05 23:54] LABS: BASO % 1.4 % (0.0-1.0); EOS % 1.9 % (0.0-3.0); LARGE UNSTAINED CELL # 0.1 K/mm3 (0.0-0.4); LARGE UNSTAINED CELL % 2.6 % (0.0-4.0); LYMPH # 0.5 K/mm3 (1.5-4.5); LYMPH % 23.5 % (24.0-44.0); MEAN CORPUSCULAR HEMOGLOBIN 33.1 pg (27.0-33.0); MEAN CORPUSCULAR HGB CONC 32.8 g/dl (32.0-36.5); MONO # 0.2 K/mm3 (0.0-0.8); MONO % 8.3 % (0.0-5.0); NEUTROPHILS # 1.3 K/mm3 (1.8-7.7); NEUTROPHILS % 62.3 % (36.0-66.0); RED CELL DISTRIBUTION WIDTH 16.2 % (11.5-14.5)
[2016-10-05 23:58] LABS: ABG BASE EXCESS 0.9 (-2.0-2.0); ABG HCO3 24.4 MEQ/L (22.0-26.0); ABG PARTIAL PRESSURE CO2 34.5 mmHg (35.0-45.0); ABG PARTIAL PRESSURE O2 104.2 mmHg (75.0-100.0); ABG STANDARD HCO3 25.3 MEQ/L (22.0-26.0); ABG TOTAL CO2 25.4 MEQ/L (23.0-31.0); ABG pH (ARTERIAL) 7.467 UNITS (7.350-7.450)
[2016-10-05 23:58] LABS: PLATELET COUNT, AUTOMATED 33 k/mm3 (150-450)
[2016-10-06 00:11] LABS: ANION GAP 2 MEQ/L (8-16); BLOOD UREA NITROGEN 11 MG/DL (7-18); CALCIUM LEVEL 8.5 MG/DL (8.8-10.2); CARBON DIOXIDE LEVEL 33 MEQ/L (21-32); CHLORIDE LEVEL 107 MEQ/L (98-107); CREATININE FOR GFR 0.98 MG/DL (0.70-1.30); GLOMERULAR FILTRATION RATE > 60.0 (>42); GLUCOSE, FASTING 111 MG/DL (83-110); POTASSIUM SERUM 4.2 MEQ/L (3.5-5.1); SODIUM LEVEL 142 MEQ/L (136-145)
[2016-10-06] MEDS ORDERED: PRED5TA PO (02:00)
[2016-10-06] MEDS ORDERED: NITROGLYCERIN 0.4 MG SUBL TABLET SL PRN (03:15)
[2016-10-06] MEDS ORDERED: ONDANSETRON 4 MG ORAL DISINTEGRATING TAB (S0181) PO PRN (03:15)
[2016-10-06] MEDS ORDERED: ACETAMINOPHEN 325 MG TAB PO PRN (03:15)
[2016-10-06] MEDS ORDERED: FUROSEMIDE 20 MG/2 ML VIAL (J1940) IV ONE (04:00)
--- NOTE | 2016-10-06 04:23 | HPEPDOC ---
General Date of Admission Oct 06, 2016 at 02:56 Primary Care Physician: EMILIE STYLES MD @ Attending Physician: Valeriy Kimble MD Chief Complaint The patient is a 71-year-old male admitted with a reason for visit of Diastolic Chf. Source: Patient Exam Limitations: No limitations History of Present Illness Mr. Das is a 71-year-old male who presented to the ED with worsening shortness of breath. His past medical history as listed below, but most notably he does have a history of polycystic kidney disease with bilateral kidney removal and kidney transplant in 2012, he is also had coronary artery disease with CABG, and his most recent echo in 2013 indicates that he has diastolic congestive heart failure. He states that his shortness of breath been going on for approximately 2 days, he has also recently noticed some increased swelling in his feet and his ankles. According to the patient, apparently this has not happened in the past. He denies any other chest discomfort or palpitations. He was recently hospitalized for GI bleed with anemia about 3-4 weeks ago, however his CBC in the ED indicates that his H&H has remained stable since that time. While in the ED he was treated with a DuoNeb treatment, and he is actually remarkably feeling much better at this time, although he is a little bit tremulous. 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 Home Medications Scheduled Atorvastatin Calcium (Atorvastatin Calcium) 10 Mg Tab, 10 MG PO QPM, (Reported) Azathioprine (Imuran) 50 Mg Tab, 50 MG PO DAILY, (Reported) Calcitriol (Rocaltrol) 0.25 Mcg Cap, 0.25 MCG PO 5XW, (Reported) WEDNESDAY - WEDNESDAY, TAKES AT QPM Calcium Carbonate (Calcium Carbonate) 500 Mg Chw, 1,000 MG PO BID, (Reported) Folic Acid (Folic Acid) 1 Mg Tab, 1 MG PO DAILY, (Reported) Furosemide (Lasix) 20 Mg Tab, 20 MG PO DAILY Loratadine (Claritin) 10 Mg Cap, 10 MG PO DAILY, (Reported) Magnesium Oxide (Magnesium Oxide) 400 Mg Tab, 400 MG PO DAILY, (Reported) Pantoprazole Sodium Sesquihydr (Protonix) 40 Mg Tab, 40 MG PO QPM, (Reported) Prednisone (Prednisone) 5 Mg Tab, 5 MG PO DAILY, (Reported) Tacrolimus (Tacrolimus) 0.5 Mg Cap, 0.5 MG PO BID, (Reported) Tamsulosin Hydrochloride (Flomax) 0.4 Mg Cap, 0.4 MG PO QPM, (Reported) Scheduled PRN Acetaminophen (Tylenol) 325 Mg Tab, 650 MG PO Q4HP PRN for MILD PAIN OR FEVER, ( Reported) Albuterol Sulfate (Ventolin Hfa) 200 Puff/8 Gm Aers, 2 PUFF INH QIDP PRN for SHORTNESS OF BREATH Nitroglycerin (Nitrostat) 0.4 Mg Subl, 0.4 MG SL NITRO PRN for CHEST PAIN, ( Reported) Ondansetron (Ondansetron Odt) 4 Mg Tab, 4 MG PO Q4H PRN for NAUSEA, (Reported) Allergies Coded Allergies: Penicillins (Verified Allergy, Unknown, 07/04/12) Pseudoephedrine (Verified Adverse Reaction, Unknown, 08/20/13) Past Medical History Medical History 1. Polycystic kidney disease status post kidney transplant in 2012 2. Polycystic liver disease 3. Esophageal varices 4. Diastolic congestive heart failure 5. Coronary artery disease 6. Thrombocyte cytopenia 7. History of esophageal dysmotility and gastroesophageal strictures requiring esophageal dilation 8. Chronic chest deformity and scoliosis with chronic restrictive lung disease secondary to polio as a child, status post major back surgery as a child 9. History of testicular cancer status post orchiectomy 10. Diverticulosis Surgical History 1. Coronary artery bypass graft 2. Bilateral [place] nephrectomy in 2011 3. Kidney transplant in 2011 4. Unilateral Orchiectomy 5. Multiple AV fistulas and AV grafts for when the patient was on hemodialysis, these are now not operational 6. Cholecystectomy 7. Left lower lobe lobectomy Family History Multiple members of his family have had polycystic kidney disease including his brother, son, and daughter Social History * Smoker: former Smoker (quit almost 30 years ago) Alcohol: Denies Drugs: denies Recent Travel/Sick Contacts: Denies: Recent travel Psychosocial History: No pertinent psych hx Review of Symptoms Constitutional: Denies: Chills, Fever, Night Sweats Eyes: Denies: Pain, Vision change ENT: Denies: Head Aches, Ear Pain, Dysphagia Skin: Denies: Rash, Lesions, Breakdown Pulmonary: Denies: Dyspnea, Cough Cardiovascular: Denies: Chest Pain, Palpitations, Orthopnea, Paroxysmal Noc. Dyspnea, Lt Headedness Gastrointestinal: Denies: Nausea, Vomiting, Abdominal Pain, Diarrhea Genitourinary: Denies: Dysuria, Frequency, Incontinence, Retention Hematologic: Denies: Bruising, Bleeding Excessively Neurological: Denies: Weakness, Numbness, Change in speech, Confusion Psych: Reports: Mood Normal, Denies: Depression, Memory Issues Physical Examination General Exam: Positive: Alert, Cooperative, No Acute Distress Eye Exam: Positive: Conjunctiva & lids normal, EOMI, Negative: Sclera icteric ENT Exam: Positive: Atraumatic, Mucous membr. moist/pink, Pharynx Normal Neck Exam: Positive: Supple, Negative: JVD, thyromegaly Chest Exam: Positive: Clear to auscultation, Normal air movement, Other ( diminished lung sounds at the left base.) Heart Exam: Positive: Rate Normal, Regular Rhythm, Normal S1, Normal S2, Negative: Murmurs, Rubs Telemetry: Positive: No significant arrhythmia Abdomen Exam: Positive: Normal bowel sounds, Soft, Negative: Tenderness, Hepatospenomegaly Extremity Exam: Positive: Edema (1-2+ pitting edema of the lower extremities to just above the ankles bilaterally), Normal pulses, Negative: Clubbing, Cyanosis Skin Exam: Positive: Nl turgor and temperature, Negative: Breakdown, Lesion Neuro Exam: Positive: Normal Speech, Normal Tone, Cranial Nerves 3-12 NL Psych Exam: Positive: Mental status NL, Mood NL, Oriented x 3 Vital Signs Vital Signs Date Time Temp Pulse Resp B/P (MAP) Pulse Ox O2 Delivery O2 Flow Rate FiO2 10/06/16 00:48 10/06/16 00:44 63 98 10/05/16 23:08 96.0 28 Room Air Laboratory Data Labs 24H Laboratory Tests 2 10/05/16 23:34: White Blood Count 2.0L, Red Blood Count 3.19L, Hemoglobin 10.6L, Hematocrit 32.3L, Mean Corpuscular Volume 101.0H, Mean Corpuscular Hemoglobin 33.1H, Mean Corpuscular Hemoglobin Concent 32.8, Red Cell Distribution Width 16.2H, Platelet Count 33L, Neutrophils (%) (Auto) 62.3, Lymphocytes (%) (Auto) 23.5L, Monocytes (%) (Auto) 8.3H, Eosinophils (%) (Auto) 1.9, Basophils (%) (Auto) 1.4H , Neutrophils # (Auto) 1.3L, Lymphocytes # (Auto) 0.5L, Monocytes # (Auto) 0.2, Eosinophils # (Auto) 0.0, Basophils # (Auto) 0.0, Large Unclassified Cells % 2.6 , Large Unclassified Cells # 0.1, Anion Gap 2L, Glomerular Filtration Rate > 60.0, Blood Urea Nitrogen 11, Creatinine 0.98, Sodium Level 142, Potassium Level 4.2, Chloride Level 107, Carbon Dioxide Level 33H, Calcium Level 8.5L, Total Creatine Kinase 33L, Creatine Kinase MB 1.2, Creatine Kinase MB Relative Index 3.63, Troponin I 0.05, B-Type Natriuretic Peptide 192H 10/05/16 23:52: Blood Gas Bicarbonate Standard 25.3, Arterial Blood pH 7.467H, Arterial Blood Partial Pressure CO2 34.5L, Arterial Blood Partial Pressure O2 104.2H, Arterial Blood Total CO2 25.4, Arterial Blood HCO3 24.4, Arterial Blood Base Excess 0.9, Arterial Blood Oxygen Saturation 98.0 CBC/BMP Laboratory Tests 10/05/16 23:34 Red Blood Count 3.19 L, Mean Corpuscular Volume 101.0 H, Mean Corpuscular Hemoglobin 33.1 H, Mean Corpuscular Hemoglobin Concent 32.8, Red Cell Distribution Width 16.2 H, Neutrophils (%) (Auto) 62.3, Lymphocytes (%) (Auto) 23.5 L, Monocytes (%) (Auto) 8.3 H, Eosinophils (%) (Auto) 1.9, Basophils (%) ( Auto) 1.4 H, Neutrophils # (Auto) 1.3 L, Lymphocytes # (Auto) 0.5 L, Monocytes # (Auto) 0.2, Eosinophils # (Auto) 0.0, Basophils # (Auto) 0.0, Calcium Level 8.5 L, Total Creatine Kinase 33 L Problems (1) Acute decompensated heart failure Status: Acute (2) Diastolic CHF Status: Chronic (3) Restrictive lung disease Status: Chronic (4) Kidney transplant status, cadaveric Onset Date: 01/29/2014 Status: Chronic (5) Hx of CABG Status: Chronic (6) History of nephrectomy Permanent Comment: bilateral Last Edited By: Christel Pino DO on August 22, 2013 10:19 Status: Chronic (7) CAD (coronary artery disease) Status: Chronic (8) Polycystic kidney disease Status: Chronic (9) Pancytopenia Status: Chronic Plan / VTE VTE Prophylaxis Ordered?: Yes (Ishaan's and sequentials) Plan Plan Will admit the patient for observation. Given that he has recently noticed swelling of the lower extremities accompanied by shortness of breath, I suspect that this is acute decompensation of chronic congestive diastolic heart failure. His BNP is slightly elevated, although not above 300. He has not had an echocardiogram since 2013, therefore this will be repeated. Given that he is a kidney transplant patient, we will not aggressively diurese at this time, one dose of Lasix will be administered, and he can be reassessed in the morning. He was given 1 dose of DuoNeb in the ED for his shortness of breath, and by the time I saw him his lungs sounded clear, and his symptoms had resolved , but he was a bit shaky, therefore we will allow him to have Xopenex every 4 hours when necessary which will hopefully reduce the shakiness should he need this again. Otherwise, an ABG was drawn in the ED which was unremarkable, his kidney function appears to be normal, and he has no other lab abnormalities requiring attention at this time. It is supposed that his pancytopenia is due to his immunosuppressive drugs that he is taking. Otherwise, we'll continue with his home regimen for his chronic conditions as listed above. TIP HARRIS DO Oct 06, 2016 03:55 Valeriy Kimble MD Oct 18, 2016 01:54
[2016-10-06 05:00] VITALS: BP 155/69
[2016-10-06] MEDS: LEVALBUTEROL 1.25 MG/0.5 ML CONCENTRATE NEB INH PRN ×3 (05:51→17:41)
[2016-10-06 06:38] LABS: MEAN CORPUSCULAR HEMOGLOBIN 34.8 pg (27.0-33.0); MEAN CORPUSCULAR HGB CONC 33.7 g/dl (32.0-36.5); RED CELL DISTRIBUTION WIDTH 16.4 % (11.5-14.5)
[2016-10-06 07:06] LABS: ANION GAP 6 MEQ/L (8-16); BLOOD UREA NITROGEN 12 MG/DL (7-18); CALCIUM LEVEL 8.5 MG/DL (8.8-10.2); CARBON DIOXIDE LEVEL 30 MEQ/L (21-32); CHLORIDE LEVEL 104 MEQ/L (98-107); GLOMERULAR FILTRATION RATE > 60.0 (>42); GLUCOSE, FASTING 90 MG/DL (83-110); POTASSIUM SERUM 3.7 MEQ/L (3.5-5.1); SODIUM LEVEL 140 MEQ/L (136-145)
--- NOTE | 2016-10-06 08:24 | REP ---
PORTABLE CHEST, ONE VIEW: HISTORY: Dyspnea. COMPARISON: 09/18/2016. A moderate size left pleural effusion is present unchanged compared to the previous study. The right lung is clear. The cardiac silhouette is enlarged. The pulmonary vasculature is normal in appearance. IMPRESSION: 1. Left pleural effusion unchanged compared to the previous study. 2. Cardiomegaly. Signed by Karthik Cunningham MD 10/06/2016 08:34 A
[2016-10-06] MEDS ORDERED: CALCIUM CARBONATE 500 MG CHEW U/D PO SCH (09:00)
[2016-10-06] MEDS: TACROLIMUS 0.5 MG CAP PO SCH ×2 (10:08→21:13)
[2016-10-06] MEDS: MAGNESIUM OXIDE 400 MG TAB (MAG-OX) PO SCH (10:08)
[2016-10-06] MEDS: LORATADINE 10 MG TAB PO SCH (10:08)
[2016-10-06] MEDS: FOLIC ACID 1 MG TAB PO SCH (10:08)
[2016-10-06] MEDS: predniSONE 5 MG TAB PO SCH (10:08)
[2016-10-06] MEDS: azaTHIOprine 50 MG TAB (J7500) PO SCH (10:09)
[2016-10-06] MEDS ORDERED: FUROSEMIDE 40 MG/4 ML VIAL (J1940) IV ONE (11:00)
--- NOTE | 2016-10-06 11:15 | IPNPDOC ---
Subjective Date Seen The patient was seen on 10/06/16. Subjective Chief Complaint/HPI The patient is a 71-year-old male admitted with a reason for visit of Diastolic Chf. Events since last encounter feeling much better, Sob is improving Objective Physical Examination General Exam: Positive: Alert, Cooperative, No Acute Distress Eye Exam: Positive: Conjunctiva & lids normal, EOMI, Negative: Sclera icteric ENT Exam: Positive: Atraumatic, Mucous membr. moist/pink, Pharynx Normal Neck Exam: Positive: Supple, Negative: JVD, thyromegaly Chest Exam: Positive: Clear to auscultation, Normal air movement, Other ( diminished lung sounds at the left base.) Heart Exam: Positive: Rate Normal, Regular Rhythm, Normal S1, Normal S2, Negative: Murmurs, Rubs Abdomen Exam: Positive: Normal bowel sounds, Soft, Negative: Tenderness, Hepatospenomegaly Extremity Exam: Positive: Edema (1-2+ pitting edema of the lower extremities to just above the ankles bilaterally), Normal pulses, Negative: Clubbing, Cyanosis Skin Exam: Positive: Nl turgor and temperature, Negative: Breakdown, Lesion Neuro Exam: Positive: Normal Speech, Normal Tone, Cranial Nerves 3-12 NL Psych Exam: Positive: Mental status NL, Mood NL, Oriented x 3 Assessment /Plan Problems (1) Acute decompensated heart failure Status: Acute Problem Text: acute exacerbation of chronic diastolic congestive heart failure will continue with iv lasix. nebs prn. monitor i/o and daily weights (2) Restrictive lung disease Status: Chronic Problem Text: due to kyphoscoliosis continue nebs prn. (3) Kidney transplant status, cadaveric Onset Date: 01/29/2014 Status: Chronic Problem Text: patient had polycystic kidney disease and ESRD now renal transplant status continue with immunosuppressants and prednisone renal functions normal. (4) Hx of CABG Status: Chronic Problem Text: had CAD with h/o cabg in the remote past no issues at present. (5) History of nephrectomy Permanent Comment: bilateral Last Edited By: Christel Pino DO on August 22, 2013 10:19 Status: Chronic (6) CAD (coronary artery disease) Status: Chronic (7) Polycystic kidney disease Status: Chronic (8) Pancytopenia Status: Chronic Problem Text: possibly due to cirrhosis and immunosuppressant medications. (9) Polycystic liver disease Status: Chronic (10) Cirrhosis Status: Chronic Problem Text: with ascitis , esophageal varices, thrombocytopenia. Plan/VTE VTE Prophylaxis Ordered?: Yes (Ishaan's and sequentials) VS, I&O, 24H, Fishbone Vital Signs/I&O Vital Signs Date Time Temp Pulse Resp B/P (MAP) Pulse Ox O2 Delivery O2 Flow Rate FiO2 10/06/16 05:00 97.0 63 18 155/69 (97) 100 Nasal Cannula 2.0 I&O- Last 24 Hours up to 6 AM 10/06/16 05:59 Intake Total 30 ml Output Total 375 ml Balance -345 ml Laboratory Data 24H LABS Laboratory Tests 2 10/05/16 23:34: White Blood Count 2.0L, Red Blood Count 3.19L, Hemoglobin 10.6L, Hematocrit 32.3L, Mean Corpuscular Volume 101.0H, Mean Corpuscular Hemoglobin 33.1H, Mean Corpuscular Hemoglobin Concent 32.8, Red Cell Distribution Width 16.2H, Platelet Count 33L, Neutrophils (%) (Auto) 62.3, Lymphocytes (%) (Auto) 23.5L, Monocytes (%) (Auto) 8.3H, Eosinophils (%) (Auto) 1.9, Basophils (%) (Auto) 1.4H , Neutrophils # (Auto) 1.3L, Lymphocytes # (Auto) 0.5L, Monocytes # (Auto) 0.2, Eosinophils # (Auto) 0.0, Basophils # (Auto) 0.0, Large Unclassified Cells % 2.6 , Large Unclassified Cells # 0.1, Anion Gap 2L, Glomerular Filtration Rate > 60.0, Blood Urea Nitrogen 11, Creatinine 0.98, Sodium Level 142, Potassium Level 4.2, Chloride Level 107, Carbon Dioxide Level 33H, Calcium Level 8.5L, Total Creatine Kinase 33L, Creatine Kinase MB 1.2, Creatine Kinase MB Relative Index 3.63, Troponin I 0.05, B-Type Natriuretic Peptide 192H 10/05/16 23:52: Blood Gas Bicarbonate Standard 25.3, Arterial Blood pH 7.467H, Arterial Blood Partial Pressure CO2 34.5L, Arterial Blood Partial Pressure O2 104.2H, Arterial Blood Total CO2 25.4, Arterial Blood HCO3 24.4, Arterial Blood Base Excess 0.9, Arterial Blood Oxygen Saturation 98.0 10/06/16 06:20: Anion Gap 6L, Glomerular Filtration Rate > 60.0, Blood Urea Nitrogen 12, Creatinine 0.90, Sodium Level 140, Potassium Level 3.7, Chloride Level 104, Carbon Dioxide Level 30, Calcium Level 8.5L, Total Creatine Kinase 32L, Creatine Kinase MB 1.1, Creatine Kinase MB Relative Index 3.43, Troponin I 0.05 CBC/BMP Laboratory Tests 10/05/16 23:34 Red Blood Count 3.19 L, Mean Corpuscular Volume 101.0 H, Mean Corpuscular Hemoglobin 33.1 H, Mean Corpuscular Hemoglobin Concent 32.8, Red Cell Distribution Width 16.2 H, Neutrophils (%) (Auto) 62.3, Lymphocytes (%) (Auto) 23.5 L, Monocytes (%) (Auto) 8.3 H, Eosinophils (%) (Auto) 1.9, Basophils (%) ( Auto) 1.4 H, Neutrophils # (Auto) 1.3 L, Lymphocytes # (Auto) 0.5 L, Monocytes # (Auto) 0.2, Eosinophils # (Auto) 0.0, Basophils # (Auto) 0.0, Calcium Level 8.5 L, Total Creatine Kinase 33 L 10/06/16 06:20 Red Blood Count 3.12 L, Mean Corpuscular Volume 103.0 H, Mean Corpuscular Hemoglobin 34.8 H, Mean Corpuscular Hemoglobin Concent 33.7, Red Cell Distribution Width 16.4 H, Calcium Level 8.5 L, Total Creatine Kinase 32 L SANTINO CAVANAUGH MD Oct 06, 2016 11:15
[2016-10-06 14:00] VITALS: BP 130/59
[2016-10-06] MEDS: FUROSEMIDE 20 MG/2 ML VIAL (J1940) IV SCH (17:52)
[2016-10-06] MEDS ORDERED: PANTOPRAZOLE 40MG TAB (PROTONIX) PO SCH (21:00)
[2016-10-06] MEDS ORDERED: ATORVASTATIN 10 MG TAB PO SCH (21:00)
[2016-10-06] MEDS ORDERED: TAMSULOSIN 0.4 MG CAP PO SCH (21:00)
[2016-10-06] MEDS: CALCIUM ANTACID PO SCH (21:00)
[2016-10-06 22:00] VITALS: BP 156/60
[2016-10-07 06:00] VITALS: BP 123/56
[2016-10-07 06:20] LABS: MEAN CORPUSCULAR HEMOGLOBIN 34.1 pg (27.0-33.0); MEAN CORPUSCULAR HGB CONC 33.4 g/dl (32.0-36.5); MEAN CORPUSCULAR VOLUME 102.1 fl (80.0-96.0); RED CELL DISTRIBUTION WIDTH 16.5 % (11.5-14.5); WHITE BLOOD COUNT 1.8 K/mm3 (4.0-10.0)
[2016-10-07 06:26] LABS: ANION GAP 5 MEQ/L (8-16); BLOOD UREA NITROGEN 14 MG/DL (7-18); CALCIUM LEVEL 8.7 MG/DL (8.8-10.2); CARBON DIOXIDE LEVEL 32 MEQ/L (21-32); CHLORIDE LEVEL 103 MEQ/L (98-107); CREATININE FOR GFR 0.88 MG/DL (0.70-1.30); GLOMERULAR FILTRATION RATE > 60.0 (>42); GLUCOSE, FASTING 91 MG/DL (83-110); POTASSIUM SERUM 3.5 MEQ/L (3.5-5.1); SODIUM LEVEL 140 MEQ/L (136-145)
[2016-10-07] MEDS: LEVALBUTEROL 1.25 MG/0.5 ML CONCENTRATE NEB INH PRN (07:05)
[2016-10-07] MEDS: predniSONE 5 MG TAB PO SCH (09:46)
[2016-10-07] MEDS: TACROLIMUS 0.5 MG CAP PO SCH (09:46)
[2016-10-07] MEDS: MAGNESIUM OXIDE 400 MG TAB (MAG-OX) PO SCH (09:46)
[2016-10-07] MEDS: azaTHIOprine 50 MG TAB (J7500) PO SCH (09:46)
[2016-10-07] MEDS: FOLIC ACID 1 MG TAB PO SCH (09:46)
[2016-10-07] MEDS: LORATADINE 10 MG TAB PO SCH (09:47)
[2016-10-07] MEDS: CALCIUM ANTACID PO SCH (09:47)
[2016-10-07] MEDS: FUROSEMIDE 20 MG/2 ML VIAL (J1940) IV SCH (09:47)
[2016-10-07] MEDS ORDERED: ALBU17IN INH (10:43)
[2016-10-07] MEDS ORDERED: LASI20TA PO (10:43)
[2016-10-07] MEDS ORDERED: ALBUTEROL 90 MCG/ACT 8GM HFA INHALER INH ONE (11:00)
[2016-10-07] MEDS ORDERED: CALCITRIOL 0.25 MCG CAP (S0169) PO SCH (21:00)
--- NOTE | 2016-10-08 07:06 | ECGEPIP ---
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
[2016-10-08] MEDS ORDERED: PREVNAR 13 VACCINE SYRINGE (CPT CODE:90670) IM SCH (09:00)
--- NOTE | 2016-10-08 22:28 | DSES ---
DATE OF ADMISSION: 10/06/2016 DATE OF DISCHARGE: 10/07/2016 PRIMARY CARE PROVIDER: Dr. Smallwood DISCHARGE DIAGNOSES: 1. Acute exacerbation of chronic diastolic congestive heart failure. 2. Restrictive lung disease due to severe kyphoscoliosis. 3. History of polycystic kidney disease status post renal transplant in 2012. 4. Coronary artery disease. 5. History of esophageal dysmotility and strictures, requiring esophageal dilatation. 6. Diverticulosis of the colon. 7. Recent history of gastrointestinal bleed, thought to be due to diverticular bleed. 8. Polycystic liver disease. 9. Cirrhosis of liver, possibly related to polycystic liver disease with esophageal varices and chronic thrombocytopenia. 10. History of testicular cancer status post orchidectomy. 11. History of coronary artery bypass graft. 12. History of bilateral napaimute nephrectomy. 13. Pancytopenia. 14. Benign prostatic hypertrophy. 15. Hyperparathyroidism. DISCHARGE MEDICATIONS: - albuterol sulfate metered-dose inhaler (MDI) two puff inhalation four times a day as needed - Lasix 20 mg by mouth daily - Tylenol 650 mg by mouth every 4 hours as needed pain or fever - atorvastatin 10 mg by mouth at bedtime - azathioprine 50 mg by mouth daily - calcitriol 0.25 mcg five times a week - calcium carbonate 1000 mg by mouth twice a day - folic acid 1 mg by mouth daily - loratadine 10 mg by mouth daily - magnesium oxide 400 mg by mouth daily - nitroglycerine 0.4 mg sublingually as needed for chest pain - ondansetron 4 mg by mouth every 4 hours as needed for nausea - pantoprazole 40 mg by mouth every evening - prednisone 5 mg by mouth daily - tacrolimus 0.5 mg by mouth twice a day - tamsulosin 0.4 mg by mouth at bedtime HOSPITAL COURSE: This is a 71-year-old male with restrictive lung disease due to severe kyphoscoliosis, chronic diastolic congestive heart failure with history of renal transplant, presented to the hospital with worsening shortness of breath for 2 or 3 days. Patient was felt to have mild fluid overload and was given intravenous (IV) Lasix in the emergency room with improvement of symptoms. Patient was subsequently admitted for diastolic congestive heart failure exacerbation for observation. Patient did have history of gastrointestinal (GI) bleed 3-4 weeks prior and received transfusions. The GI bleed was thought to be due to diverticular bleed and not esophageal and resolved spontaneously. Hemoglobin and hematocrit this admission remained stable. Patient did well after diuresis, and patient also received some nebulizers, which also seemed to help. Patient's hospital course was uneventful. On the day of discharge, patient's symptoms had resolved. Patient's vital signs were stable, and functionally patient as at baseline. PHYSICAL EXAMINATION: VITAL SIGNS: Temperature 98, pulse 61, respiratory rate 18, blood pressure 123/56, pulse oximetry 96% in room air. GENERAL: Patient awake, alert, oriented times three, lying down in bed in no acute distress. HEENT: Normocephalic, atraumatic. Moist mucous membranes. Anicteric eyes. CHEST: Clear to auscultation. CARDIOVASCULAR: S1, S2, regular. No rub, murmur, or gallop. ABDOMEN: Soft, nontender. Bowel sounds present. EXTREMITIES: No edema. LABORATORY DATA: WBC 1.8, hemoglobin 9.4, platelets 29. Sodium 140, potassium 3.5, chloride 103, bicarbonate 5, BUN 14, creatinine 0.88, calcium 8.7, glucose 91. Cardiac enzymes were negative. Chest x-ray: Left pleural effusion, unchanged compared to previous study, cardiomegaly. DISPOSITION: Patient is discharged home in a stable condition. DISCHARGE INSTRUCTIONS: Patient to followup with primary care provider in 1 week. Patient will need a followup complete blood count (CBC) on 10/09/2016. Diet as tolerated. Activity as tolerated. MTDD
[2017-01-31] MEDS ORDERED: AMIL5TA PO (01:40)
[2017-01-31] MEDS ORDERED: LASI20TA PO (01:40)
[2017-01-31] MEDS ORDERED: VENTAER INH (05:44)
[2017-01-31] MEDS ORDERED: LORA10TA2 PO (05:44)
[2017-01-31] MEDS ORDERED: AMIL25TA PO (05:45)
== END 2016-10-07 11:35 | disposition home or self-care (01) ==
LOC: M ED 22:59 → M ED INP 10-06 02:56 → INTOOBSV 10-06 02:56 → M MSPAV 10-06 04:54
PROVIDERS: ATTEND Internal Medicine Nephrology
DX: I50.33 Acute on chronic diastolic (congestive) heart failure (principal); J98.4 Other disorders of lung; M41.9 Scoliosis, unspecified; I25.10 Atherosclerotic heart disease of native coronary artery without angina pectoris; Q44.6 Cystic disease of liver; D69.6 Thrombocytopenia, unspecified; K57.30 Diverticulosis of large intestine without perforation or abscess without bleeding; K76.9 Liver disease, unspecified; Z95.1 Presence of aortocoronary bypass graft; Z85.47 Personal history of malignant neoplasm of testis; Z79.899 Other long term (current) drug therapy; D61.818 Other pancytopenia; N40.0 Benign prostatic hyperplasia without lower urinary tract symptoms; E21.3 Hyperparathyroidism, unspecified; Z94.0 Kidney transplant status; Z88.0 Allergy status to penicillin; Z88.8 Allergy status to other drugs, medicaments and biological substances; Z87.891 Personal history of nicotine dependence
CPT/HCPCS: 36415; 36600; 71010; 80048; 82550; 82553; 82803; 83880; 84484; 85025; 85027; 93005; 93041; 94640; 96374; 96375; 96376; 99285; G0378; J1940; J3360; J7500

== ENCOUNTER → 2016-10-13 | Outpatient (REF) | payer MEDICARE ==
[~2016-10-13] MED LIST changes: +ALBU17IN INH; +AMIL25TA PO; +AMIL5TA PO; +LASI20TA PO; +LORA10TA2 PO; +TACR0.5C3 PO; +VENTAER INH
[2016-10-13 13:48] LABS: ALBUMIN 3.4 GM/DL (3.2-5.2); ALBUMIN/GLOBULIN RATIO 1.62 (1.00-1.93); BILIRUBIN,DIRECT 0.4 MG/DL (0.0-0.2); BILIRUBIN,TOTAL 1.1 MG/DL (0.2-1.0); TOTAL PROTEIN 5.5 GM/DL (6.4-8.2)
== END ==
LOC: M LAB REF 12:45
PROVIDERS: ATTEND Internal Medicine Nephrology
DX: Z94.0 Kidney transplant status (principal)

== ENCOUNTER → 2017-01-18 | Outpatient (REF) | payer MEDICARE ==
[~2017-01-18] MED LIST changes: +LEVA1TAB2 PO
[2017-01-18 14:55] LABS: ALBUMIN 3.3 GM/DL (3.2-5.2); ALBUMIN/GLOBULIN RATIO 1.43 (1.00-1.93); BILIRUBIN,DIRECT 0.3 MG/DL (0.0-0.2); TOTAL PROTEIN 5.6 GM/DL (6.4-8.2)
== END ==
LOC: M LAB REF 13:15
PROVIDERS: ATTEND Internal Medicine Nephrology
DX: Z94.0 Kidney transplant status (principal)

== ENCOUNTER 2017-02-24 22:46 | Inpatient (IN) | payer MEDICARE ==
[~2017-02-24] VITALS: Ht 165.1 cm; Wt 137.0 kg
[2017-02-24 23:54] LABS: ABG BASE EXCESS 1.3 (-2.0-2.0); ABG HCO3 25.2 MEQ/L (22.0-26.0); ABG PARTIAL PRESSURE CO2 37.3 mmHg (35.0-45.0); ABG PARTIAL PRESSURE O2 62.5 mmHg (75.0-100.0); ABG STANDARD HCO3 25.5 MEQ/L (22.0-26.0); ABG TOTAL CO2 26.3 MEQ/L (23.0-31.0); ABG pH (ARTERIAL) 7.447 UNITS (7.350-7.450)
[2017-02-24 23:57] LABS: ALBUMIN 3.3 GM/DL (3.2-5.2); ALBUMIN/GLOBULIN RATIO 1.32 (1.00-1.93); ALKALINE PHOSPHATASE 120 U/L (45-117); ALT/SGPT 16 U/L (12-78); ANION GAP 10 MEQ/L (8-16); AST/SGOT 18 U/L (7-37); BILIRUBIN,DIRECT 0.4 MG/DL (0.0-0.2); BILIRUBIN,TOTAL 1.6 MG/DL (0.2-1.0); BLOOD UREA NITROGEN 16 MG/DL (7-18); CALCIUM LEVEL 8.7 MG/DL (8.8-10.2); CARBON DIOXIDE LEVEL 29 MEQ/L (21-32); CHLORIDE LEVEL 102 MEQ/L (98-107); CREATININE FOR GFR 1.15 MG/DL (0.70-1.30); GLOMERULAR FILTRATION RATE > 60.0 (>42); GLUCOSE, FASTING 172 MG/DL (83-110); POTASSIUM SERUM 3.9 MEQ/L (3.5-5.1); SODIUM LEVEL 141 MEQ/L (136-145); TOTAL PROTEIN 5.8 GM/DL (6.4-8.2)
[2017-02-25 00:13] LABS: BASO % 0.5 % (0.0-1.0); EOS % 0.9 % (0.0-3.0); IMMATURE GRANULOCYTE % 1.4 % (0-0); LYMPH # 0.3 10^3/uL (1.5-4.5); LYMPH % 14.5 % (24.0-44.0); MEAN CORPUSCULAR HEMOGLOBIN 32.9 pg (27.0-33.0); MEAN CORPUSCULAR HGB CONC 32.3 g/dl (32.0-36.5); MEAN CORPUSCULAR VOLUME 101.9 fl (80.0-96.0); MONO # 0.1 10^3/uL (0.0-0.8); MONO % 5.6 % (0.0-5.0); NEUTROPHILS # 1.7 10^3/uL (1.8-7.7); NEUTROPHILS % 77.1 % (36.0-66.0); RED CELL DISTRIBUTION WIDTH 15.4 % (11.5-14.5); WHITE BLOOD COUNT 2.1 10^3/uL (4.0-10.0)
[2017-02-25] MEDS ORDERED: DILUENT IV ONE (00:15)
[2017-02-25] MEDS ORDERED: NS IV ONE (00:15)
[2017-02-25] MEDS ORDERED: CEFEPIME HCL 2 GM in APPROPRIATE DILUENT 1 EA IV ONE (00:15)
[2017-02-25] MEDS ORDERED: ACETAMINOPHEN TAB 650MG DOSE (2X325MG) PO ONE (00:15)
[2017-02-25 00:55] LABS: PLATELET COUNT, AUTOMATED 33 10^3/uL (150-450)
[2017-02-25 00:56] LABS: IMMATURE PLATELET FRACTION % 5.5 % (0.0-10.9); PLATELET F 27
[2017-02-25] MEDS ORDERED: DOCU100C16 PO (00:58)
[2017-02-25 01:32] LABS: INR 1.11
--- NOTE | 2017-02-25 02:13 | ECGEPIP ---
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
--- NOTE | 2017-02-25 02:20 | REPUSA ---
CLINICAL HISTORY: Sepsis. TECHNIQUE: Multiple axial CT images were obtained through chest with IV contrast material. MPR walker l and sagittal sequences were obtained. COMMENTS: Comparison to prior exam performed on 01/31/2017. Mild increase in left pleural effusion. Mild increase in basilar atelectatic disease of the left lung. Mild increase in airspace consolidation involving the lingula and the left lower lobe. Unchanged moderate hepatomegaly. IMPRESSION: Mild increase in right effusion and airspace disease of the left lung. Thank you for your kind referral of this patient.
--- NOTE | 2017-02-25 02:40 | REPUSA ---
CLINICAL HISTORY: Sepsis. TECHNIQUE: Multiple axial, sagittal and coronal CT images were obtained through the abdomen and pelvi s without administration of oral or IV contrast material. COMMENTS: Comparison to prior exam performed on 01/31/2017. Mild increase in left pleural effusion. Unchanged liver cirrhosis and large number of hepatic cysts. Prior cholecystectomy, unchanged. Unchanged moderate splenomegaly. Diffusely dilated fluid filled stomach and small bowel. Transition zone in the right upper quadrant. Findings are suspicious for partial bowel obstruction. Interval appearance of moderate ascites which was not present on prior exam. Unchanged moderately dilated extrahepatic biliary tree. Unchanged 4 mm nonobstructing stone of the right renal transplant. Uncomplicated sigmoid diverticulosis, unchanged. Nonvisualization of the kashia kidneys. The bony structures are free of lytic or blastic lesions. Multilevel degenerative changes are seen in volving the thoracolumbar spine. Scattered calcifications are seen involving the aorta and major branches compatible with atherosclero sis. IMPRESSION: Interval appearance of moderate ascites and partial small bowel obstruction. Transition zone in the r ight lower quadrant. Unchanged moderately dilated extrahepatic biliary tree. Increase of right effusion. Additional chronic, unchanged findings as above. Thank you for your kind referral of this patient.
[2017-02-25] MEDS ORDERED: METAL LOCK LOOP XX ONE (02:59)
[2017-02-25] MEDS ORDERED: ONDANSETRON 4MG/2ML VIAL (J2405) IV PRN (04:00)
[2017-02-25 04:32] LABS: AMYLASE 33 U/L (25-115)
--- NOTE | 2017-02-25 04:50 | REPUSA ---
CLINICAL HISTORY: Dyspnea. COMMENTS: Correlation with a CT scan of the chest performed on 02/25/2017. Single view of the chest reveals left pleural effusion with passive atelectatic airspace disease in t he left lower lobe. Mild mediastinal shift to the right side. Moderate thyromegaly. IMPRESSION: Left pleural effusion with passive atelectatic airspace disease in the left lower lobe. Pulmonary congestion. Thank you for your kind referral of this patient.
[2017-02-25] MEDS: ACETAMINOPHEN TAB 650MG DOSE (2X325MG) PO PRN ×3 (04:53→20:05)
[2017-02-25 04:57] LABS: ABG BASE EXCESS 1.2 (-2.0-2.0); ABG PARTIAL PRESSURE CO2 36.4 mmHg (35.0-45.0); ABG PARTIAL PRESSURE O2 69.3 mmHg (75.0-100.0); ABG STANDARD HCO3 25.5 MEQ/L (22.0-26.0); ABG TOTAL CO2 26.1 MEQ/L (23.0-31.0); ABG pH (ARTERIAL) 7.454 UNITS (7.350-7.450)
[2017-02-25] MEDS ORDERED: VANCOMYCIN HCL 1,000 MG, VIAL MATE ADAPTER 1 EACH in D5W 250 ML IV ONE (05:00)
[2017-02-25] MEDS ORDERED: FUROSEMIDE 20 MG/2 ML VIAL (J1940) IV ONE ×2 (05:00→19:15)
--- NOTE | 2017-02-25 05:01 | HPEPDOC ---
[facility] Medical History & Physical Date of Admission Feb 25, 2017 Attending Physician: RODNEY MCCORMACK MD History and Physical PRIMARY CARE PROVIDER: Dr. Zepeda ATTENDING: Dr. Rodney Mccormack CHIEF COMPLAINT: SOB HISTORY OF PRESENT ILLNESS: This is a 71-year-old male past medical history of polycystic kidney disease, polycystic liver disease, esophageal varices, status post kidney transplant 2012 , previously on on hemodialysis, history of diastolic heart failure, CAD, pancytopenia, chronic restrictive lung disease secondary to polio, history of testicular cancer status post orchiectomy who presents complaining of shortness of breath. Patient's states he's been short of breath with a past few days and has also been increasingly drowsy with notable chills. Denies fevers. Patient states his dyspnea has progressed to dyspnea on exertion while going up the steps. Denies chest pain or palpitations. Patient denies dysuria however states that he had an episode of diarrhea yesterday which resolved. Denies nausea/vomiting/abdominal pain. Patient was recently hospitalized for bacteremia from an unknown source. Patient recently saw Dr. Zepeda, with plan to temporarily hold his diuretics, and has a reevaluation appointment tomorrow however the patient states that he was too sick to wait until then. In the ED, the patient was noted to have a lactic acid of 5.1, pancytopenia, fevers, and airspace disease on his CAT scan of the chest. Patient was started on IV antibiotics for sepsis secondary to healthcare coronary pneumonia.. PAST MEDICAL HISTORY: As per HPI PAST SURGICAL HISTORY: CAD status post CABG, nephrectomy, kidney transplant 2012, aVF, cholecystectomy, left lobar lobe lobectomy, skin cancer resected, testicular resection for testicular cancer SOCIAL HISTORY: Denies tobacco, alcohol, illicit drug use. FAMILY HISTORY: Noncontributory ALLERGIES: Please see below. REVIEW OF SYSTEMS: HEENT: Denies sore throat/headache CARDIOVASCULAR: Denies chest pain/palpitations RESPIRATORY: Denies shortness of breath/cough GASTROINTESTINAL: denies nausea/vomiting GENITOURINARY: Denies dysuria/urinary urgency. MUSCULOSKELETAL: Denies myalgias/arthralgias NEUROLOGICAL: Denies any focal weakness HOME MEDICATIONS: Please see below. PHYSICAL EXAMINATION: Vitals: (see below) General: No acute distress, laying comfortably in bed. HEENT: Moist mucous membranes. Neck: No JVD or lymphadenopathy Cardiac: RRR, No murmurs Pulm: Coarse crackles and diminished breath sounds left greater than the right. No wheezing, rhonchi. No stridor or use of accessory muscles. Abd: NT. Distended. + BS. No rebound guarding or rigidity. Ext: 1+ pitting edema bilateral lower extremities. No cyanosis LABORATORY DATA: See below. IMAGING: CT abdomen and pelvis on 02/25/17 IMPRESSION: Interval appearance of moderate ascites and partial small bowel obstruction. Transition zone in the right lower quadrant. Unchanged moderately dilated extrahepatic biliary tree. Increase of right effusion. Additional chronic, unchanged findings as above. CT chest 02/25/17 COMMENTS: Comparison to prior exam performed on 01/31/2017. Mild increase in left pleural effusion. Mild increase in basilar atelectatic disease of the left lung. Mild increase in airspace consolidation involving the lingula and the left lower lobe. Unchanged moderate hepatomegaly. IMPRESSION: Mild increase in right effusion and airspace disease of the left lung. MICROBIOLOGY: Please see below. ASSESSMENT/PLAN: 1. Sepsis secondary to healthcare acquired pneumonia- patient was started on vancomycin and Levaquin. Had received IV fluids in the ED. Blood cultures sent. Sputum culture. Respiratory panel. Lactic acid 5.1, will trend. 2. Left pleural effusion- this has increased in size since prior imaging. Once the patient's condition has improved, will likely need a thoracentesis. 4. Decompensated diastolic heart failure- had received IV fluids in the ED is well; his diuretics were recently held as he was feeling sick. Started on IV Lasix. 5. History of pancytopenia- stable, chronic. Immunocompromised. No need for transfusion at this time. We'll continue to monitor. 6. History of CAD- continue home meds 7. History of renal transplant, previously on hemodialysis- creatinine stable. Avoid nephrotoxins. We'll continue to monitor. 8. History of polycystic kidney disease/polycystic liver disease, esophageal varices 9. History of chronic restrictive lung disease secondary to polio 10. History of testicular cancer status post orchiectomy 11. History of BPH on Flomax 12. GERD on PPI 13. Kyphoscoliosis secondary to polio DVT prophylaxis SCDs Prognosis guarded Patient will be followed by Dr. Rodney Mccormack starting 02/25/17 at 7 AM. Vital Signs Vital Signs Date Time Temp Pulse Resp B/P (MAP) Pulse Ox O2 Delivery O2 Flow Rate FiO2 02/25/17 02:05 100.1 02/25/17 02:02 68 93 02/24/17 22:46 30 Room Air Laboratory Data Labs 24H Laboratory Tests 2 02/24/17 23:12: Immature Granulocyte % (Auto) 1.4H, White Blood Count 2.1L, Red Blood Count 3.74L, Hemoglobin 12.3L, Hematocrit 38.1L, Mean Corpuscular Volume 101.9H, Mean Corpuscular Hemoglobin 32.9, Mean Corpuscular Hemoglobin Concent 32.3, Red Cell Distribution Width 15.4H, Platelet Count 33L, Neutrophils (%) (Auto) 77.1H, Lymphocytes (%) (Auto) 14.5L, Monocytes (%) (Auto) 5.6H, Eosinophils (%) (Auto) 0.9, Basophils (%) (Auto) 0.5, Neutrophils # (Auto) 1.7L, Lymphocytes # (Auto) 0.3L, Monocytes # (Auto) 0.1, Eosinophils # (Auto) 0.0, Basophils # (Auto) 0.0, Immature Granulocyte # (Auto) 0.0, Nucleated Red Blood Cells % (auto) 0.0, Immature Platelet Fraction 5.5, Prothrombin Time 14.5, Prothromb Time International Ratio 1.11, Activated Partial Thromboplast Time 29.7, Anion Gap 10 , Glomerular Filtration Rate > 60.0, Lactic Acid Level 5.3*H, Calcium Level 8.7L , Aspartate Amino Transf (AST/SGOT) 18, Alanine Aminotransferase (ALT/SGPT) 16, Alkaline Phosphatase 120H, Total Bilirubin 1.6H, Direct Bilirubin 0.4H, Total Creatine Kinase 26L, Creatine Kinase MB 1.0, Creatine Kinase MB Relative Index 3.84, Troponin I 0.05, NI-Xic-F-Type Natriuretic Peptide 972H, Total Protein 5.8L, Albumin 3.3, Albumin/Globulin Ratio 1.32, Thyroid Stimulating Hormone (TSH ) 3.700 02/24/17 23:48: Blood Gas Bicarbonate Standard 25.5, Arterial Blood pH 7.447, Arterial Blood Partial Pressure CO2 37.3, Arterial Blood Partial Pressure O2 62.5L, Arterial Blood Total CO2 26.3, Arterial Blood HCO3 25.2, Arterial Blood Base Excess 1.3, Arterial Blood Oxygen Saturation 92.7L 02/25/17 00:37: Urine Appearance CLEAR, Urine Color ANTHONY, Urine pH 5.0, Urine Specific [place] 1.028, Urine Protein NEGATIVE, Urine Glucose (UA) NEGATIVE, Urine Ketones TRACEH , Urine Urobilinogen 0.2, Urine Bilirubin NEGATIVE, Urine Leukocyte Esterase NEGATIVE, Urine Blood NEGATIVE, Urine Nitrite NEGATIVE, Urine WBC (Auto) 2, Urine RBC (Auto) 3, Urine Hyaline Casts (Auto) 0, Urine Bacteria (Auto) NEGATIVE , Urine Squamous Epithelial Cells 0, Urine Mucus (Auto) SMALL, Urine Sperm (Auto ) CBC/BMP Laboratory Tests 02/24/17 23:12 Red Blood Count 3.74 L, Mean Corpuscular Volume 101.9 H, Mean Corpuscular Hemoglobin 32.9, Mean Corpuscular Hemoglobin Concent 32.3, Red Cell Distribution Width 15.4 H, Neutrophils (%) (Auto) 77.1 H, Lymphocytes (%) (Auto ) 14.5 L, Monocytes (%) (Auto) 5.6 H, Eosinophils (%) (Auto) 0.9, Basophils (%) (Auto) 0.5, Neutrophils # (Auto) 1.7 L, Lymphocytes # (Auto) 0.3 L, Monocytes # (Auto) 0.1, Eosinophils # (Auto) 0.0, Basophils # (Auto) 0.0 Microbiology Microbiology 02/25/17 Blood Culture, Received Pending 02/24/17 Blood Culture, Received Pending 02/25/17 Influenza Virus Type A Antigen - Final, Complete 02/25/17 Influenza Virus Type B Antigen - Final, Complete 02/25/17 Urine Culture, Received Pending Home Medications Scheduled Atorvastatin Calcium (Atorvastatin Calcium) 10 Mg Tab, 10 MG PO QHS Azathioprine (Imuran) 50 Mg Tab, 50 MG PO QHS Calcitriol (Rocaltrol) 0.25 Mcg Cap, 0.5 MCG PO 5XW WEDNESDAY - WEDNESDAY, TAKES AT QPM Calcium Carbonate (Calcium Carbonate) 500 Mg Chw, 1,000 MG PO DAILY Folic Acid (Folic Acid) 1 Mg Tab, 1 MG PO DAILY Loratadine (Loratadine) 10 Mg Tab, 10 MG PO DAILY Magnesium Oxide (Magnesium Oxide) 400 Mg Tab, 400 MG PO DAILY Pantoprazole Sodium Sesquihydr (Protonix) 40 Mg Tab, 40 MG PO DAILY Prednisone (Prednisone) 5 Mg Tab, 5 MG PO DAILY Tacrolimus (Tacrolimus) 0.5 Mg Cap, 0.5 MG PO BID Tamsulosin Hydrochloride (Flomax) 0.4 Mg Cap, 0.4 MG PO QHS Scheduled PRN Acetaminophen (Tylenol) 325 Mg Tab, 650 MG PO Q4HP PRN for MILD PAIN OR FEVER Albuterol Sulfate (Ventolin Hfa) 108 Mcg/Act Aer, 2 PUFFS INH QID PRN for SHORTNESS OF BREATH Docusate Sodium (Docusate Sodium) 100 Mg Cap, 100 MG PO DAILY PRN for CONSTIPATION Nitroglycerin (Nitrostat) 0.4 Mg Subl, 0.4 MG SL NITRO PRN for CHEST PAIN Ondansetron (Ondansetron Odt) 4 Mg Tab, 4 MG PO Q4H PRN for NAUSEA Allergies Coded Allergies: Penicillins (Verified Allergy, Unknown, 07/04/12) Pseudoephedrine (Verified Adverse Reaction, Unknown, 08/20/13) JANEEN GREENFIELD MD Feb 25, 2017 05:01
[2017-02-25] MEDS ORDERED: MORPHINE 2 MG/ML 1ML SYRINGE IV ONE (05:15)
[2017-02-25 05:34] LABS: BASO % 0.4 % (0.0-1.0); EOS % 0.8 % (0.0-3.0); IMMATURE GRANULOCYTE % 0.4 % (0-0); LYMPH % 9.7 % (24.0-44.0); MEAN CORPUSCULAR HEMOGLOBIN 32.9 pg (27.0-33.0); MEAN CORPUSCULAR HGB CONC 32.5 g/dl (32.0-36.5); MEAN CORPUSCULAR VOLUME 101.2 fl (80.0-96.0); MONO # 0.1 10^3/uL (0.0-0.8); MONO % 5.7 % (0.0-5.0); NEUTROPHILS # 2.1 10^3/uL (1.8-7.7); RED CELL DISTRIBUTION WIDTH 15.4 % (11.5-14.5); WHITE BLOOD COUNT 2.5 10^3/uL (4.0-10.0)
--- NOTE | 2017-02-25 05:43 | PHACANCOPD ---
PHARMACY VANCOMYCIN DOSING Pt Demographics Demographics Patient Age:71 , Weight:76.550 , Gender: male Adjusted Body Weight Date: 02/25/17, Adjusted Body Weight: [67.5] Kg Vancomycin Vancomycin indication: HCAP/SEPSIS Vancomycin Target Ranges: 15-20 mcg/ml Vancomycin Load Y/N: No Load Dose Date Time Vancomycin Load Dose: Date: Time: Vancomycin Dose Date: 02/25/17. Current Vancomycin Dose: [1GM@05,THEN 750MG Q12H] Intermittent Dosing?: No Labs Labs Laboratory Tests 02/24/17 23:12 Red Blood Count 3.74 L, Mean Corpuscular Volume 101.9 H, Mean Corpuscular Hemoglobin 32.9, Mean Corpuscular Hemoglobin Concent 32.3, Red Cell Distribution Width 15.4 H, Neutrophils (%) (Auto) 77.1 H, Lymphocytes (%) (Auto ) 14.5 L, Monocytes (%) (Auto) 5.6 H, Eosinophils (%) (Auto) 0.9, Basophils (%) (Auto) 0.5, Neutrophils # (Auto) 1.7 L, Lymphocytes # (Auto) 0.3 L, Monocytes # (Auto) 0.1, Eosinophils # (Auto) 0.0, Basophils # (Auto) 0.0 Micro Microbiology 02/25/17 Blood Culture, Received Pending 02/24/17 Blood Culture, Received Pending 02/25/17 Influenza Virus Type A Antigen - Final, Complete 02/25/17 Influenza Virus Type B Antigen - Final, Complete 02/25/17 Urine Culture, Received Pending Creatinine Clearance Date:02/25/17. Creatinine Clearance: [54.6]CALCULATED. Pending Labs Vancomycin trough due 02/26@1600 Assessment and Plan Maintaining Current Dose?: Yes Reason for dose change: No Dose Change Pharmacist Note Pharmacist Note Date: 02/25/17. Pharmacist note:71 YOM admitted w/increasing SOB-possible HCAP, Sepsis. Ht;66",Wt;76.6kg(ABW=67.5)Scr=1.15,Calculated CRCL=54.6;Allergy; Penicillin, Cefepime 2 GM.administered in ED@0051,Vancomycin 1 GM in ED@ 05.Levofloxacin 500mg ordered for 0900 today and will continue with a [id number] dose of 250mg. Vancomycin is ordered per Pharmacy consult.Will begin 750mg [id number] regimen @1700 today.First trough is to be drawn prior to the 4th dose(@1600)Will continue to follow levels and labs [facility] Feb 25, 2017 05:43
[2017-02-25 05:55] LABS: ALBUMIN 2.8 GM/DL (3.2-5.2); ALBUMIN/GLOBULIN RATIO 1.12 (1.00-1.93); ALKALINE PHOSPHATASE 91 U/L (45-117); ALT/SGPT 15 U/L (12-78); ANION GAP 6 MEQ/L (8-16); AST/SGOT 17 U/L (7-37); BLOOD UREA NITROGEN 17 MG/DL (7-18); CALCIUM LEVEL 8.2 MG/DL (8.8-10.2); CARBON DIOXIDE LEVEL 26 MEQ/L (21-32); CHLORIDE LEVEL 109 MEQ/L (98-107); GLOMERULAR FILTRATION RATE > 60.0 (>42); GLUCOSE, FASTING 114 MG/DL (83-110); MAGNESIUM LEVEL 1.3 MG/DL (1.8-2.4); POTASSIUM SERUM 4.1 MEQ/L (3.5-5.1); SODIUM LEVEL 141 MEQ/L (136-145); TOTAL PROTEIN 5.3 GM/DL (6.4-8.2)
[2017-02-25 05:58] LABS: LYMPH # 0.2 10^3/uL (1.5-4.5); PLATELET COUNT, AUTOMATED 20 10^3/uL (150-450); POS COUNT POS FLAG; POSITIVE DIFF POS FLAG
[2017-02-25] MEDS: MAG SULF 1GM/100ML (MAG RUN) 1 GM in APPROPRIATE DILUENT 1 EA IV SCH ×2 (07:37→08:44)
[2017-02-25 08:00] VITALS: BP 104/52
[2017-02-25] MEDS: DOCUSATE SODIUM 100 MG CAP PO PRN (08:44)
[2017-02-25] MEDS: PANTOPRAZOLE 40MG TAB (PROTONIX) PO SCH (08:44)
[2017-02-25] MEDS: predniSONE 5 MG TAB PO SCH (08:44)
[2017-02-25] MEDS: CALCIUM CARBONATE 500 MG CHEW U/D PO SCH (08:47)
[2017-02-25] MEDS ORDERED: LevoFLOXacin IV 500 MG in APPROPRIATE DILUENT 1 EA IV ONE (09:00)
--- NOTE | 2017-02-25 09:20 | REP ---
Clinical: Dyspnea. Cough. Comparison: 01/31/2017. Findings: [id number] left lower lobe pleural effusion with underlying consolidation is again appreciated. Trace right basilar atelectasis cannot be excluded along with mild pulmonary vascular congestion. Cardiomegaly is presumed. Evidence of prior sternotomy and CABG. No pneumothorax. Skeletal structures intact. Impression: [id number] left pleural effusion with underlying consolidation and right basilar atelectasis. Signed by Octavio Cadet MD 02/25/2017 08:24 A
--- NOTE | 2017-02-25 11:28 | CR ---
DATE OF CONSULTATION: 02/25/2017 REQUESTING PHYSICIAN: Karthik Driver MD. REASON FOR CONSULTATION: Acute kidney injury in this gentleman with history of kidney transplant who is being admitted for pneumonia. HISTORY OF PRESENT ILLNESS: Mr. Das is a 71-year-old gentleman who is quite frail. He has known history of end-stage renal disease secondary to polycystic kidneys and underwent a kidney transplant about 6 years ago. His kidney has been functioning very well. He was recently admitted to [facility] with shivering and chills and was found to have pneumonia. He was treated with antibiotics for 2 weeks and improved to his baseline. He has been doing well. However a couple of days ago, he started to feel short of breath. He also reports some shivering and chills. He came to the emergency room when he developed fever again today and was found to have pneumonia once again. He is admitted and a nephrology consultation was requested. The patient is seen in the emergency room. PAST MEDICAL AND SURGICAL HISTORY: Significant for: 1. End-stage renal disease secondary to polycystic kidney disease. 2. Polycystic liver disease. 3. History of esophageal achalasia for which he has required dilatation in the past. 4. History of kidney transplant in 2012. 4. History of diastolic congestive heart failure. 5. Coronary artery disease. 6. History of pancytopenia. 7. History of chronic restrictive lung disease secondary to kyphoscoliosis caused by polio. 8. History of testicular cancer, status post orchiectomy 9. Multiple surgeries for AV fistulas and grafts in the past. PAST SURGICAL HISTORY: Is also significant for: 1. Coronary artery bypass graft (CABG). 2. Knik kidneys nephrectomy. 3. Cholecystectomy. 4. Left lower lobe lobectomy. 5. Orchiectomy. 6. Skin cancer resection. 7. AV fistula surgeries. PERSONAL AND SOCIAL HISTORY: The patient is and lives with his son. He does not smoke or drink. FAMILY HISTORY: Significant for polycystic kidney and end-stage renal disease. MEDICATIONS: His home medications include: - atorvastatin 10 mg daily - Imuran 50 mg daily - calcitriol 0.5 mcg five times a week - calcium carbonate 500 mg two tablets daily - folic acid 1 mg daily - magnesium oxide 400 mg daily - Protonix 40 mg daily - prednisone 5 mg daily - tacrolimus 0.5 mg twice daily - Flomax 0.4 mg at bedtime - He also uses albuterol inhaler as needed for dyspnea. - Colace 100 mg twice daily - nitroglycerin 0.4 mg sublingual for chest pain - Zofran 4 mg as needed for nausea - Tylenol as needed for pain and fever ALLERGIES: The patient the patient has allergy to PENICILLIN and PSEUDOEPHEDRINE. REVIEW OF SYSTEMS: The patient reports shivering and chills. He denies any high-grade fevers. Ears, nose and throat are unremarkable. There is no nosebleed or sore throat reported. Cardiovascular system is significant for a history of diastolic congestive heart failure and coronary artery disease. He denies any chest pain. Respiratory system is significant for shortness of breath. There is no history of hemoptysis or pleuritic type of chest pain. GI system is significant for poor intake due to loss of appetite. He does have history of esophageal achalasia. He also has history of colitis and diverticulitis in remote past. system is significant for benign prostatic enlargement. He has been taking Flomax for urinary symptoms. Denies any dysuria or hematuria. Musculoskeletal system is significant for generalized weakness and kyphoscoliosis. He denies any leg edema. Endocrine system is significant for secondary hyperparathyroidism. There is no history of diabetes or thyroid problems. He also has hypercholesterolemia. Hematological system is significant for pancytopenia. Neurological system is negative for seizures or stroke. Psychosocial system is negative for depression or anxiety. Skin is negative for rash or ulcers. PHYSICAL EXAMINATION: I examined the patient in the emergency room. Patient is lying on the stretcher without any acute distress. Temperature is 99.6 degrees Fahrenheit, heart rate 68 per minute and respiratory rate 18 per minute. Blood pressure 104/52 mmHg and oxygen saturation 98% on 2 liters oxygen. Head is atraumatic. Pupils equal and reactive to light and sclera is anicteric. Ears, nose and throat are unremarkable. Neck is supple and JVD is not visible. Thyroid is not enlarged. Trachea is midline. Heart sounds are distant but regular. Lungs have markedly diminished breath sounds on left side due to scoliosis. Right side sounds clear. Abdomen is soft and nontender. Transplant kidney is nontender in right lower quadrant. Extremities have no cyanosis or clubbing. Skin has no rash or ulcers. Multiple old surgical scar due to AV graft and fistula in both upper extremities are noted without any signs of infection. Skin has no rash or ulcers. Neurologically he is awake, alert and oriented times three. No focal deficit noted. LABORATORY DATA: His WBC count was 2.1, hemoglobin 12.3 and hematocrit 38.1. Platelets 33,000 yesterday and today they are down to 20,000. WBC count is 2.5, hemoglobin 10.7 and hematocrit 32.9. Sodium 141 and potassium 4.1. BUN is 17 and creatinine 1.0. Glucose 114 and calcium 8.2. His lactic acid level was 5.3 on admission and has come down to 2.3 today. Total bilirubin is 2.0, AST 17, ALT 15 and alkaline phosphatase 91. Urinalysis showed two WBCs and three RBCs. A chest CT scan done in the emergency room following chest x-ray which showed mildly increased right effusion and left lower lung infiltrate. CT scan of abdomen and pelvis showed moderate ascites and partial small bowel obstruction. Moderately dilated extrahepatic biliary tree and increased right effusion. PROBLEMS: 1. Pneumonia in immunocompromised gentleman. The patient is currently being treated with vancomycin and levofloxacin. I would suggest aggressive nebulizer therapy. He is afebrile and only low grade fever is noted at present. The patient was treated recently for pneumonia at the same spot so I feel that we may have to treat him longer. A repeat CT scan in few days is indicated to monitor the resolution of infiltrate. 2. Kidney transplant status. The patient will continue with current immunosuppressives. His kidney function is back to about the baseline. 3. Pancytopenia. This is a main issue and thrombocytopenia and leukopenia is worsening. He will need close monitoring for possible bleed due to a platelet count down to 20,000. His immunosuppression has been minimal. 4. Anemia. His anemia is mild and stable. No intervention is indicated at this point. 5. Benign prostatic hypertrophy (BPH). The patient remains on Flomax 0.4 mg daily. 6. Secondary hyperparathyroidism. The patient has been on calcitriol 0.5 mcg five times a week and will resume it. At present, I am going to put her on calcitriol 0.25 mcg every day. I thank you for involving me in the care of Mr. Das. I will follow him along with you.
[2017-02-25 12:00] VITALS: BP 146/60
[2017-02-25 16:00] VITALS: BP 117/60
[2017-02-25 16:35] VITALS: BP 123/59
[2017-02-25] MEDS: CALCITRIOL 0.25 MCG CAP (S0169) PO SCH (17:39)
[2017-02-25] MEDS: VANCOMYCIN HCL 750 MG, VIAL MATE ADAPTER 1 EACH in D5W 250 ML IV SCH (17:39)
[2017-02-25] MEDS: ATORVASTATIN 10 MG TAB PO SCH (20:05)
[2017-02-25] MEDS: TAMSULOSIN 0.4 MG CAP PO SCH (20:05)
[2017-02-25 20:07] VITALS: BP 164/68
[2017-02-26] VITALS (7 sets, daily range): BP systolic 104–119; BP diastolic 49–60
[2017-02-26] MEDS: ACETAMINOPHEN TAB 650MG DOSE (2X325MG) PO PRN ×2 (04:22→12:05)
[2017-02-26] MEDS: VANCOMYCIN HCL 750 MG, VIAL MATE ADAPTER 1 EACH in D5W 250 ML IV SCH ×2 (04:23→17:07)
[2017-02-26 05:45] LABS: MEAN CORPUSCULAR HEMOGLOBIN 32.6 pg (27.0-33.0); MEAN CORPUSCULAR HGB CONC 32.9 g/dl (32.0-36.5); RED CELL DISTRIBUTION WIDTH 15.7 % (11.5-14.5)
[2017-02-26 06:04] LABS: ANION GAP 7 MEQ/L (8-16); BLOOD UREA NITROGEN 15 MG/DL (7-18); CALCIUM LEVEL 7.8 MG/DL (8.8-10.2); CARBON DIOXIDE LEVEL 27 MEQ/L (21-32); CHLORIDE LEVEL 102 MEQ/L (98-107); CREATININE FOR GFR 0.92 MG/DL (0.70-1.30); GLOMERULAR FILTRATION RATE > 60.0 (>42); GLUCOSE, FASTING 117 MG/DL (83-110); MAGNESIUM LEVEL 1.5 MG/DL (1.8-2.4); POTASSIUM SERUM 3.7 MEQ/L (3.5-5.1); SODIUM LEVEL 136 MEQ/L (136-145)
[2017-02-26 06:12] LABS: WHITE BLOOD COUNT 1.8 10^3/uL (4.0-10.0)
[2017-02-26 06:14] LABS: ADD MANUAL DIFFER YES; BLASTS POS FLAG; DIFF SLIDE NUMBER 53; PLATELET COUNT, AUTOMATED 19 10^3/uL (150-450); POS COUNT POS FLAG; POSITIVE DIFF POS FLAG; POSITIVE MORPH POS FLAG
[2017-02-26 06:16] LABS: IMMATURE PLATELET FRACTION % 6.6 % (0.0-10.9)
[2017-02-26 06:36] LABS: BANDS 5 % (< 11)
[2017-02-26 06:37] LABS: ANISOCYTOSIS 1+
[2017-02-26] MEDS: predniSONE 5 MG TAB PO SCH (08:32)
[2017-02-26] MEDS: MEROPENEM INJ 1 GM in APPROPRIATE DILUENT 1 EA IV SCH ×3 (08:32→23:13)
[2017-02-26] MEDS: CALCIUM CARBONATE 500 MG CHEW U/D PO SCH (08:32)
[2017-02-26] MEDS: CALCITRIOL 0.25 MCG CAP (S0169) PO SCH (08:32)
[2017-02-26] MEDS: PANTOPRAZOLE 40MG TAB (PROTONIX) PO SCH (08:32)
[2017-02-26] MEDS: TACROLIMUS 0.5 MG CAP PO SCH ×2 (08:33→20:43)
[2017-02-26] MEDS ORDERED: azaTHIOprine 50 MG TAB (J7500) PO SCH (09:00)
[2017-02-26] MEDS ORDERED: LevoFLOXacin IV 250 MG in APPROPRIATE DILUENT 1 EA IV SCH (09:00)
--- NOTE | 2017-02-26 10:36 | IPNPDOC ---
Text Note Date of Service The patient was seen on 02/26/17. NOTE Subjective: Patient seen and examined at bedside. No new medical complaints. Still complains of shortness of breath. Objective: General: NAD, lying comfortably in bed HEENT: NC/AT, EOMI Lungs: CTA B/L, diminished breath sounds B/L Heart: +S1S2, RRR Abd: soft, NT, +BS Ext: no edema Psych: AAOx3 ASSESSMENT/PLAN: 1. Pneumonia - in the setting of immunocompromise/immunosuppression - continue levaquin/vanco - added respiratory regimen/IS/acapella/mucolytics - follow up CT in few days 2. Bacteremia - one cultures positive for G- rods - repeat cultures/sensitivities pending - continue abx as per above 3. ESRD d/t PCKD s/p renal transplant - continue immunosuppressive therapy - nephrology consultation appreciated 4.. Pancytopenia/thrombocytopenia - no obvious bleeding - continue to follow 5.. CAD - Hx of CABG 6.. CHF - preserved ejection fraction - compensated 7.. Hx testicular cancer 8.. Anemia - stable - will continue to follow 9.. Benign prostatic hypertrophy (BPH) - continue home regimen - flomax 0.4 mg 10. Secondary hyperparathyroidism. - calcitriol adjusted to 0.25 mcg daily - follow as per nephrology 11. Hx Polio - restrictive lung disease/kyphoscoliosis 12. Esophageal achalasia - requires dilatation as needed 13. DVT prophylaxis - mechanical VS,Fishbone, I+O VS, Fishbone, I+O Laboratory Tests 02/26/17 05:12 Red Blood Count 2.98 L, Mean Corpuscular Volume 99.0 H, Mean Corpuscular Hemoglobin 32.6, Mean Corpuscular Hemoglobin Concent 32.9, Red Cell Distribution Width 15.7 H, Lymphocytes # (Auto) , Calcium Level 7.8 L Vital Signs Date Time Temp Pulse Resp B/P (MAP) Pulse Ox O2 Delivery O2 Flow Rate FiO2 02/26/17 08:00 Nasal Cannula 2.0 02/26/17 07:30 100.8 63 22 110/54 (72 97 I&O- Last 24 Hours up to 6 AM 02/27/17 06:00 Intake Total 50 ml Balance 50 ml RODNEY MCCORMACK MD Feb 26, 2017 10:36
[2017-02-26] MEDS ORDERED: FUROSEMIDE 40 MG/4 ML VIAL (J1940) IV ONE (11:00)
[2017-02-26 14:50] LABS: ANION GAP 6 MEQ/L (8-16); BLOOD UREA NITROGEN 16 MG/DL (7-18); CALCIUM LEVEL 8.2 MG/DL (8.8-10.2); CARBON DIOXIDE LEVEL 31 MEQ/L (21-32); CHLORIDE LEVEL 100 MEQ/L (98-107); CREATININE FOR GFR 0.88 MG/DL (0.70-1.30); GLOMERULAR FILTRATION RATE > 60.0 (>42); GLUCOSE, FASTING 113 MG/DL (83-110); POTASSIUM SERUM 3.6 MEQ/L (3.5-5.1); SODIUM LEVEL 137 MEQ/L (136-145)
[2017-02-26] MEDS ORDERED: MAGNESIUM OXIDE 400 MG TAB (MAG-OX) PO ONE (16:30)
[2017-02-26] MEDS ORDERED: VANCOMYCIN HCL 500 MG in D5W MINI-BAG PLUS 100 ML IV ONE (17:15)
[2017-02-26] MEDS: TAMSULOSIN 0.4 MG CAP PO SCH (20:43)
[2017-02-26] MEDS: ATORVASTATIN 10 MG TAB PO SCH (20:43)
--- NOTE | 2017-02-26 21:46 | IPN ---
DATE: 02/26/2017 SUBJECTIVE: Mr. Das was admitted yesterday with shortness of breath and diagnosed with pneumonia. He is being treated with intravenous (IV) antibiotics including Levaquin and vancomycin. This morning as I walked into his room, he walked out of the bathroom and was very short of breath. I helped him into the bed and put his oxygen on. I have advised him to call the nursing staff for help if he needs to get out of bed. It took him several minutes to improve his respiratory status. He has poor appetite but denies any vomiting or diarrhea. PHYSICAL EXAMINATION: Temperature 100.8 degrees Fahrenheit, heart rate 64 per minute and respiratory rate 22 per minute at rest, but in my presence it was up to 30 per minute. Blood pressure 110/54 mmHg and oxygen saturation 97% on two liters oxygen. Intake and output records from yesterday showed total intake 1320 and output 2075 mL. His head is atraumatic. Neck is supple and jugular venous distention (JVD) is difficult to be assessed. There is no oral thrush or ulcers. Heart sounds are regular and lungs with markedly diminished breath sounds on the left side. He has only moderate air movement on the right side. Abdomen is soft and nontender. Bowel sounds are present. Extremities have no cyanosis or clubbing. He has 1+ edema on his legs. Neurologically he is awake, alert and oriented times three. Skin has no rash or ulcers. LABORATORY DATA: Today's labs show WBC count 1.8, hemoglobin 9.7 and hematocrit 29.5. Platelets are 19,000. Sodium 137 and potassium 3.6. BUN 16 and creatinine 0.88. Glucose 113 and calcium 8.2. PROBLEMS: 1. Severe shortness of breath: Most likely this is related to pneumonia and possible volume overload. One dose of Lasix 40 mg intravenously is being given. The patient will continue with supplemental oxygen and will call the nursing staff for assistance when he needs to get out of bed. I have also advised the nursing staff to make sure that he does not get out of bed without assistance. His oxygen tubing is being extended so he can walk to the bathroom while keeping his oxygen on. 2. Pancytopenia: His neutropenia and thrombocytopenia have worsened significantly. There is no active bleeding at this point. We will wait for his complete blood count (CBC) tomorrow and consider giving him Neupogen if it gets worse. There is no need for platelet transfusion at this point. I am stopping his Imuran for now and will leave him on prednisone and tacrolimus. 3. Kidney transplant status: The patient remains on his chronic immunosuppression. His Imuran is being stopped due to worsening pancytopenia. He will continue with tacrolimus 0.5 mg daily and prednisone 5 mg daily. 4. Pneumonia: The patient is currently on Levaquin and vancomycin. I am stopping his Levaquin and instead putting him on meropenem 1 gram every eight hours. We will continue with vancomycin 1000 mg every 12 hours and pharmacy will follow the level. 5. Benign prostatic hypertrophy (BPH). The patient remains on Flomax 0.4 mg daily. 6. Secondary hyperparathyroidism. The patient remains on calcitriol 0.25 mcg daily.
[2017-02-27] MEDS: ACETAMINOPHEN TAB 650MG DOSE (2X325MG) PO PRN ×3 (02:34→23:21)
[2017-02-27 04:00] VITALS: BP 91/54
[2017-02-27] MEDS: VANCOMYCIN HCL 1,000 MG, VIAL MATE ADAPTER 1 EACH in D5W 250 ML IV SCH ×2 (04:44→17:21)
[2017-02-27 05:29] LABS: EOS % 1.7 % (0.0-3.0); IMMATURE GRANULOCYTE % 0.6 % (0-0); LYMPH % 11.7 % (24.0-44.0); MEAN CORPUSCULAR HGB CONC 33.7 g/dl (32.0-36.5); MEAN CORPUSCULAR VOLUME 97.9 fl (80.0-96.0); MONO # 0.2 10^3/uL (0.0-0.8); MONO % 11.7 % (0.0-5.0); NEUTROPHILS # 1.3 10^3/uL (1.8-7.7); NEUTROPHILS % 74.3 % (36.0-66.0); RED CELL DISTRIBUTION WIDTH 15.7 % (11.5-14.5)
[2017-02-27 05:50] LABS: ANION GAP 6 MEQ/L (8-16); BLOOD UREA NITROGEN 16 MG/DL (7-18); CALCIUM LEVEL 7.8 MG/DL (8.8-10.2); CARBON DIOXIDE LEVEL 31 MEQ/L (21-32); CHLORIDE LEVEL 99 MEQ/L (98-107); CREATININE FOR GFR 0.75 MG/DL (0.70-1.30); GLOMERULAR FILTRATION RATE > 60.0 (>42); GLUCOSE, FASTING 107 MG/DL (83-110); MAGNESIUM LEVEL 1.8 MG/DL (1.8-2.4); POTASSIUM SERUM 3.5 MEQ/L (3.5-5.1); SODIUM LEVEL 136 MEQ/L (136-145)
[2017-02-27 06:23] LABS: LYMPH # 0.2 10^3/uL (1.5-4.5); PLATELET COUNT, AUTOMATED 19 10^3/uL (150-450); POS COUNT POS FLAG; POSITIVE DIFF POS FLAG; WHITE BLOOD COUNT 1.8 10^3/uL (4.0-10.0)
[2017-02-27 06:24] LABS: ADD MANUAL DIFFER NO; DIFF SLIDE NUMBER 37
--- NOTE | 2017-02-27 07:03 | IPNPDOC ---
Text Note Date of Service The patient was seen on 02/27/17. NOTE Subjective: Patient seen and examined at bedside. No new medical complaints. Still complains of shortness of breath. Objective: General: NAD, lying comfortably in bed HEENT: NC/AT, EOMI Lungs: CTA B/L, diminished breath sounds B/L Heart: +S1S2, RRR Abd: soft, NT, +BS Ext: no edema Psych: AAOx3 ASSESSMENT/PLAN: 1. Pneumonia - in the setting of immunocompromise/immunosuppression - levaquin adjusted to meropenem/continue vanco - added respiratory regimen/IS/acapella/mucolytics - follow up CT in few days 2. Bacteremia - one cultures positive for ESBL Ecoli - repeat cultures/sensitivities pending - NTD - continue abx as per above - his previous admission BCx + Ecoli 3. ESRD d/t PCKD s/p renal transplant - continue with immunosuppressive therapy, Imuran discontinued - nephrology consultation appreciated 4.. Pancytopenia/thrombocytopenia - leukopenia continues to worsen - likely administer neupogen today - will discuss further with nephrology - pancytopenia also worsening - no signs of bleeding 5.. CAD - Hx of CABG 6.. CHF - preserved ejection fraction - compensated 7.. Hx testicular cancer 8.. Anemia - stable - will continue to follow 9.. Benign prostatic hypertrophy (BPH) - continue home regimen - flomax 0.4 mg 10. Secondary hyperparathyroidism. - calcitriol adjusted to 0.25 mcg daily - follow as per nephrology 11. Hx Polio - restrictive lung disease/kyphoscoliosis 12. Esophageal achalasia - requires dilatation as needed 13. DVT prophylaxis - mechanical VS,Fishbone, I+O VS, Fishbone, I+O Laboratory Tests 02/26/17 14:15 Calcium Level 8.2 L 02/27/17 05:03 Calcium Level 7.8 L, Red Blood Count 2.88 L, Mean Corpuscular Volume 97.9 H, Mean Corpuscular Hemoglobin 33.0, Mean Corpuscular Hemoglobin Concent 33.7, Red Cell Distribution Width 15.7 H, Neutrophils (%) (Auto) 74.3 H, Lymphocytes (%) ( Auto) 11.7 L, Monocytes (%) (Auto) 11.7 H, Eosinophils (%) (Auto) 1.7, Basophils (%) (Auto) 0.0, Neutrophils # (Auto) 1.3 L, Lymphocytes # (Auto) 0.2 L , Monocytes # (Auto) 0.2, Eosinophils # (Auto) 0.0, Basophils # (Auto) 0.0 Vital Signs Date Time Temp Pulse Resp B/P (MAP) Pulse Ox O2 Delivery O2 Flow Rate FiO2 02/27/17 04:00 100.2 68 22 91/54 (66 93 Nasal Cannula 2.0 RODNEY MCCORMACK MD Feb 27, 2017 07:02
[2017-02-27 07:30] VITALS: BP 106/60
[2017-02-27] MEDS: CALCIUM CARBONATE 500 MG CHEW U/D PO SCH (07:58)
[2017-02-27] MEDS: predniSONE 5 MG TAB PO SCH (07:59)
[2017-02-27] MEDS: PANTOPRAZOLE 40MG TAB (PROTONIX) PO SCH (07:59)
[2017-02-27] MEDS: CALCITRIOL 0.25 MCG CAP (S0169) PO SCH (07:59)
[2017-02-27] MEDS: TACROLIMUS 0.5 MG CAP PO SCH ×2 (07:59→21:06)
[2017-02-27] MEDS: MEROPENEM INJ 1 GM in APPROPRIATE DILUENT 1 EA IV SCH ×3 (07:59→23:15)
[2017-02-27] MEDS: POTASSIUM CHLORIDE 10 MEQ SR TABLET PO SCH ×2 (07:59→21:06)
[2017-02-27 12:00] VITALS: BP 130/60
[2017-02-27] MEDS ORDERED: FILGRASTIM 300 MCG/0.5 ML SYRINGE (J1442) SC ONE (14:00)
[2017-02-27 16:00] VITALS: BP 106/57
[2017-02-27 20:00] VITALS: BP 131/61
[2017-02-27] MEDS: ATORVASTATIN 10 MG TAB PO SCH (21:06)
[2017-02-27] MEDS: TAMSULOSIN 0.4 MG CAP PO SCH (21:06)
[2017-02-28] VITALS (7 sets, daily range): BP systolic 100–147; BP diastolic 50–65
[2017-02-28 04:09] LABS: EOS # 0.1 10^3/uL (0.0-0.50); EOS % 1.6 % (0.0-3.0); LYMPH % 5.2 % (24.0-44.0); MEAN CORPUSCULAR HEMOGLOBIN 32.7 pg (27.0-33.0); MEAN CORPUSCULAR HGB CONC 33.3 g/dl (32.0-36.5); MONO # 0.3 10^3/uL (0.0-0.8); MONO % 8.2 % (0.0-5.0); RED CELL DISTRIBUTION WIDTH 15.7 % (11.5-14.5); WHITE BLOOD COUNT 3.7 10^3/uL (4.0-10.0)
[2017-02-28 04:20] LABS: LYMPH # 0.2 10^3/uL (1.5-4.5); PLATELET COUNT, AUTOMATED 20 10^3/uL (150-450); POSITIVE DIFF POS FLAG
[2017-02-28 04:21] LABS: POS COUNT POS FLAG
[2017-02-28 04:22] LABS: IMMATURE PLATELET FRACTION % 7.7 % (0.0-10.9)
[2017-02-28 04:50] LABS: ANION GAP 3 MEQ/L (8-16); BLOOD UREA NITROGEN 15 MG/DL (7-18); CALCIUM LEVEL 7.9 MG/DL (8.8-10.2); CARBON DIOXIDE LEVEL 35 MEQ/L (21-32); CHLORIDE LEVEL 100 MEQ/L (98-107); CREATININE FOR GFR 0.73 MG/DL (0.70-1.30); GLOMERULAR FILTRATION RATE > 60.0 (>42); GLUCOSE, FASTING 112 MG/DL (83-110); MAGNESIUM LEVEL 1.8 MG/DL (1.8-2.4); POTASSIUM SERUM 4.2 MEQ/L (3.5-5.1); SODIUM LEVEL 138 MEQ/L (136-145)
[2017-02-28] MEDS: VANCOMYCIN HCL 1,000 MG, VIAL MATE ADAPTER 1 EACH in D5W 250 ML IV SCH ×2 (05:34→17:07)
[2017-02-28 07:12] LABS: ABG BASE EXCESS 4.2 (-2.0-2.0); ABG PARTIAL PRESSURE CO2 44.4 mmHg (35.0-45.0); ABG PARTIAL PRESSURE O2 85.4 mmHg (75.0-100.0); ABG STANDARD HCO3 28.3 MEQ/L (22.0-26.0); ABG TOTAL CO2 30.4 MEQ/L (23.0-31.0); ABG pH (ARTERIAL) 7.433 UNITS (7.350-7.450)
[2017-02-28] MEDS: CALCIUM CARBONATE 500 MG CHEW U/D PO SCH (09:02)
[2017-02-28] MEDS: TACROLIMUS 0.5 MG CAP PO SCH ×2 (09:02→20:43)
[2017-02-28] MEDS: MEROPENEM INJ 1 GM in APPROPRIATE DILUENT 1 EA IV SCH ×2 (09:02→17:07)
[2017-02-28] MEDS: CALCITRIOL 0.25 MCG CAP (S0169) PO SCH (09:02)
[2017-02-28] MEDS: PANTOPRAZOLE 40MG TAB (PROTONIX) PO SCH (09:02)
[2017-02-28] MEDS: POTASSIUM CHLORIDE 10 MEQ SR TABLET PO SCH ×2 (09:02→20:43)
[2017-02-28] MEDS: predniSONE 5 MG TAB PO SCH (09:02)
--- NOTE | 2017-02-28 10:44 | IPNPDOC ---
Text Note Date of Service The patient was seen on 02/28/17. NOTE Subjective: Patient seen and examined at bedside. Still complains of shortness of breath. Objective: General: NAD, lying comfortably in bed HEENT: NC/AT, EOMI Lungs: CTA B/L, diminished breath sounds B/L Heart: +S1S2, RRR Abd: soft, NT, +BS Ext: no edema Psych: AAOx3 ASSESSMENT/PLAN: 1. Pneumonia/respiratory distress - in the setting of immunocompromise/immunosuppression - continue meropenem/vanco - continue respiratory regimen/IS/acapella/mucolytics - follow up CT pending - he has been saturating well on 2L, his ABG is WNL however he does complain of shortness of breath, and is tachypneic 2. Bacteremia - one cultures positive for ESBL Ecoli - 3 cultures NTD - continue abx as per above - his previous admission BCx + Ecoli 3. ESRD d/t PCKD s/p renal transplant - continue with immunosuppressive therapy, Imuran discontinued - nephrology consultation appreciated 4.. Pancytopenia/thrombocytopenia - s/p neupogen yesterday - will discuss further with nephrology - thrombocytopenia also worsening - no signs of bleeding 5.. CAD - Hx of CABG 6.. CHF - preserved ejection fraction - compensated 7.. Hx testicular cancer 8.. Anemia - stable - will continue to follow 9.. Benign prostatic hypertrophy (BPH) - continue home regimen - flomax 0.4 mg 10. Secondary hyperparathyroidism. - calcitriol adjusted to 0.25 mcg daily - follow as per nephrology 11. Hx Polio - restrictive lung disease/kyphoscoliosis 12. Esophageal achalasia - requires dilatation as needed 13. DVT prophylaxis - mechanical Dispo: Continue with current regimen for now; Discussed with [facility] for transfer, however no beds are available. He is on a waiting list. VS,Fishbone, I+O VS, Fishbone, I+O Laboratory Tests 02/28/17 03:59 Red Blood Count 2.97 L, Mean Corpuscular Volume 98.0 H, Mean Corpuscular Hemoglobin 32.7, Mean Corpuscular Hemoglobin Concent 33.3, Red Cell Distribution Width 15.7 H, Neutrophils (%) (Auto) 82.0 H, Lymphocytes (%) (Auto ) 5.2 L, Monocytes (%) (Auto) 8.2 H, Eosinophils (%) (Auto) 1.6, Basophils (%) ( Auto) 0.0, Neutrophils # (Auto) 3.0, Lymphocytes # (Auto) 0.2 L, Monocytes # ( Auto) 0.3, Eosinophils # (Auto) 0.1, Basophils # (Auto) 0.0, Calcium Level 7.9 L Vital Signs Date Time Temp Pulse Resp B/P (MAP) Pulse Ox O2 Delivery O2 Flow Rate FiO2 02/28/17 08:00 Nasal Cannula 2.0 02/28/17 07:55 97.5 60 24 119/57 (70) 96 I&O- Last 24 Hours up to 6 AM 03/01/17 06:00 Output Total 100 ml Balance -100 ml RODNEY MCCORMACK MD Feb 28, 2017 10:44
--- NOTE | 2017-02-28 13:13 | REP ---
CT study of the chest without contrast: History: Interval evaluation. Comparison chest CT study February 25, 2017 showed evidence of increased right pleural effusion and air space disease in the left lung. Comparison is also made with a January 31, [address] findings: Digital preliminary tower air traffic control specialist radiograph demonstrates cardiomegaly, median sternotomy wires, and severe dextroconvex thoracic scoliosis. There is some blunting of the right lateral pleural angle. Axial CT images demonstrate small bilateral pleural effusions. The right pleural effusion is increased since the February 25 study. There is extensive atelectasis in the left lower lobe and lingular segment of the left upper lobe with air bronchograms in the base on the left. These findings are similar to the most recent study of February 25, 2017. There are two small peripheral pulmonary parenchymal opacities, both in the right upper lobe. There is no hilar or mediastinal mass or adenopathy. The patient is status post prior left hepatic lobe liver resection. Multiple hepatic cysts are again seen. No bony destructive lesion. Impression: Small bilateral pleural effusions. This is increased on the right. Two new view wedge-shaped right upper lobe patchy infiltrates. Otherwise unchanged. Signed by Handy Dexter MD 03/01/2017 08:55 A
--- NOTE | 2017-02-28 14:51 | IPN ---
DATE: 02/27/2017 SUBJECTIVE: The patient is seen this morning at the bedside lying flat in bed. He continues on nasal cannula. The patient notes ongoing shortness of breath. States he feels significantly dyspneic with any exertion including ambulating to the bathroom and back to bed. He denies any cough or sputum production. T-max in the past 24 hours is 100.2. REVIEW OF SYSTEMS: Positive for low grade fevers, negative for chills, nausea, vomiting, diarrhea, rashes, chest pain, palpitations, headache. Review of systems is positive for shortness of breath and dyspnea on exertion. Remainder of review of systems is negative. VITAL SIGNS: Temperature: T-max 100.2, T-current 98.3. Pulse 67 to 68, respiratory rate 20 to 22 breaths per minute. Blood pressure 106/60, saturating 100% on 2 liters nasal cannula. Intake and output: Urine output yesterday 1775 mL. Oral intake 740 mL. Net negative 985 mL. Weight on the bed scale today 78.7 kg. PHYSICAL EXAMINATION: The patient is seen lying down flat in bed in no acute respiratory distress. HEENT: Extraocular muscles are intact. The oral mucosa is moist. The throat is unremarkable. Neck is supple. Jugular veins are difficult to assess. CARDIAC: S1, S2. Regular rate and rhythm. 2+ radial pulse. Trace edema in the lower extremities. LUNGS: There is diminished air entry especially on the left hemithorax. There is coarse air movement on the right. He is seen on nasal cannula. There is no accessory muscle of respiration use at rest. ABDOMEN: Soft, obese, nontender. There are bowel sounds present. NEUROLOGICAL: He is awake, alert, oriented, at baseline mentation. SKIN: No rash or ulcers. PSYCHIATRIC: Appropriate mood and affect. LABS: White count 1.8 with an absolute neutrophil count of 1300. Hemoglobin 9.5, platelet 19. Sodium 136, potassium 3.5, bicarbonate 31, BUN 16, creatinine 0.7, glucose 107, magnesium 1.8. Vancomycin trough 11.7. Microbiology: Repeat blood cultures were drawn today 02/27/2017 and are pending. Blood cultures from 02/25/2017 times two sets are with no growth for 48 hours. IMAGING: Chest x-ray 02/25/2017 shows a mild mediastinal shift to the right and a left pleural effusion. INPATIENT MEDICATIONS: The patient continues on: - vancomycin 1 gram IV every 12 - imipenem 1 gram IV every 8 - I gave him a 1 time dose of 300 mcg subcutaneous Neupogen for his immunosuppression - He continues on Prograf and prednisone - His Imuran is discontinued at present PROBLEMS: 1. Severe shortness of breath, pneumonia in an immunocompromised state. The patient remains on broad spectrum empiric antibiotics with vancomycin and meropenem. He remains neutropenic with an absolute neutrophil count of 1300. I have given him a dose of Neupogen. He received a one time dose of IV Lasix yesterday to help correct any volume overload that is concomitantly causing shortness of breath. He remains dependent on supplemental oxygen and is significantly dyspneic with exertion. He continues to have low grade fevers. If the patient does not improve within the next couple days then he should have a pulmonary and infectious disease evaluation and would likely benefit from bronchoscopy. 2. Pancytopenia. The patient has significant thrombocytopenia with platelet count less than 20,000 and neutropenia with ANC of 1300. He is receiving a dose of Neupogen 300 mcg subcutaneous today. There is no active bleeding and no need for platelet transfusion at this point. His Imuran has been held at present and he continues on immunosuppression with Prograf and prednisone. I will send off for viral studies. 3. Status post kidney transplant. The patient remains at baseline renal function with excellent Allograft function and stable electrolytes. MTDD
[2017-02-28] MEDS: ACETAMINOPHEN TAB 650MG DOSE (2X325MG) PO PRN (17:09)
[2017-02-28] MEDS: ATORVASTATIN 10 MG TAB PO SCH (20:43)
[2017-02-28] MEDS: TAMSULOSIN 0.4 MG CAP PO SCH (20:43)
[2017-03-01] MEDS ORDERED: SLF 3 ML SYR IV PRN (00:15)
[2017-03-01 04:08] VITALS: BP 131/62
[2017-03-01] MEDS: VANCOMYCIN HCL 1,000 MG, VIAL MATE ADAPTER 1 EACH in D5W 250 ML IV SCH (05:00)
--- NOTE | 2017-03-01 05:03 | IPN ---
DATE OF SERVICE: 02/28/2017 SUBJECTIVE: The patient is seen this morning ambulating from the bed to the bathroom with the assistance of a walker. He did quite well without any significant dyspnea noted. He continues to be dependent on supplemental oxygen, currently on 2 liters nasal cannula. He had a CT chest this morning which is pending. The patient has been afebrile the past 24 hours. VITAL SIGNS: Temperature 97.5, pulse 60, respiratory rate 20-24 breaths per minute, blood pressure 119/57, saturating 98% on 2 liters nasal cannula. Intake and output: Urine output yesterday 925 mL. Oral intake 720 mL. Net negative 200 mL. Weight on the bed scale today 78.4 kg. PHYSICAL EXAMINATION: GENERAL: The patient is seen ambulating from the bed to the bathroom, which he was able to do independently using a walker. He did not appear significantly winded with that minimal exertion. He is also seen lying flat in bed in no acute respiratory distress. HEAD AND NECK: Extraocular muscles are intact. The oral mucosa is moist. Jugular veins are difficult to assess. CARDIAC: S1, S2. Regular rate. 2+ radial pulse. There is some trace edema in the lower extremities. LUNGS: He is seen on nasal cannula. There is diminished air entry over the left lung field and coarse air movement on the right. ABDOMEN: Soft, obese, nontender. There are bowel sounds. NEUROLOGICAL: He is awake, alert, oriented, baseline mentation. SKIN: There is no rash or ulcers. PSYCHIATRIC: Appropriate mood and affect. MUSCULOSKELETAL: The patient is seen ambulating few steps from the bed to the bathroom with a walker. LABORATORIES: White count 3.7, hemoglobin 9.7, platelets 20. Sodium 138, potassium 4.2, bicarbonate 35, BUN 15, creatinine 0.7, glucose 112, calcium 7.9, magnesium 1.8, pH 7.4, pCO2 44, pO2 85. CMV and EBV PCRs are pending. Blood cultures 02/27/2017 no growth for two sets for 24 hours. IMAGING: CT chest is ordered and pending. INPATIENT MEDICATIONS: The patient received a dose of Neupogen 300 mcg subcutaneously yesterday. He continues on meropenem and vancomycin and Prograf and prednisone for his immunosuppression. There is no other significant change in his medications. PROBLEMS: 1. 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 The patient has now been afebrile for the past 24 hours. His white count has come up nicely in response to Neupogen. We have continued to hold his Imuran in the setting of pneumonia and immunocompromised state. Symptomatically, he does seem to have some mild improvement in the past 24 hours, although he continues to remain dependent on supplemental oxygen. He is for possible transfer to [facility]. I have sent for Va-Aviles virus (EBV) and cytomegalovirus (CMV) polymerase chain reaction (PCR) which is pending. At present, he continues on empiric treatment with vancomycin and meropenem. Repeat blood cultures are negative. 2. Pancytopenia. The patient's hemoglobin has remained stable for the past 3 days in the 9s. His platelet count is 20,000, but there is no sign of any active bleed. His neutropenia has improved with one dose of Neupogen and his Imuran is currently on hold. 3. Status post renal allograft. The patient remains with excellent allograft function. He continues on Prograf and prednisone as per his home regimen. I will send off for a timed Prograf level, although I do not expect it back for several days. Goal would be 4-6. MTDD
[2017-03-01] MEDS: SLF 3 ML SYR IV SCH ×3 (05:11→22:00)
[2017-03-01 06:02] LABS: BASO % 0.3 % (0.0-1.0); EOS # 0.1 10^3/uL (0.0-0.50); EOS % 1.5 % (0.0-3.0); IMMATURE GRANULOCYTE % 4.1 % (0-0); LYMPH # 0.3 10^3/uL (1.5-4.5); LYMPH % 8.9 % (24.0-44.0); MEAN CORPUSCULAR HEMOGLOBIN 32.5 pg (27.0-33.0); MEAN CORPUSCULAR HGB CONC 32.8 g/dl (32.0-36.5); MEAN CORPUSCULAR VOLUME 99.3 fl (80.0-96.0); MONO # 0.3 10^3/uL (0.0-0.8); NEUTROPHILS # 2.6 10^3/uL (1.8-7.7); NEUTROPHILS % 77.2 % (36.0-66.0); RED CELL DISTRIBUTION WIDTH 15.4 % (11.5-14.5); WHITE BLOOD COUNT 3.4 10^3/uL (4.0-10.0)
[2017-03-01 06:12] LABS: PLATELET COUNT, AUTOMATED 25 10^3/uL (150-450); POS COUNT POS FLAG
[2017-03-01 06:13] LABS: IMMATURE PLATELET FRACTION % 7.3 % (0.0-10.9); PLATELET F 24
[2017-03-01 06:29] LABS: ANION GAP 3 MEQ/L (8-16); BLOOD UREA NITROGEN 15 MG/DL (7-18); CALCIUM LEVEL 8.3 MG/DL (8.8-10.2); CARBON DIOXIDE LEVEL 36 MEQ/L (21-32); CHLORIDE LEVEL 101 MEQ/L (98-107); CREATININE FOR GFR 0.71 MG/DL (0.70-1.30); GLOMERULAR FILTRATION RATE > 60.0 (>42); GLUCOSE, FASTING 129 MG/DL (83-110); MAGNESIUM LEVEL 1.8 MG/DL (1.8-2.4); POTASSIUM SERUM 4.4 MEQ/L (3.5-5.1); SODIUM LEVEL 140 MEQ/L (136-145)
--- NOTE | 2017-03-01 07:48 | IPNPDOC ---
Text Note Date of Service The patient was seen on 03/01/17. NOTE Subjective: Patient seen and examined at bedside. Still complains of shortness of breath but states he is feeling better today. He was able to ambulate around the floor yesterday. Objective: General: NAD, lying comfortably in bed HEENT: NC/AT, EOMI Chest: CTA B/L, diminished breath sounds B/L, significant kyphoscoliosis Heart: +S1S2, RRR Abd: soft, NT, +BS Ext: no edema Psych: AAOx3 ASSESSMENT/PLAN: 1. Pneumonia/respiratory distress - in the setting of immunocompromise/immunosuppression - continue meropenem - MRSA screen negative - continue respiratory regimen/IS/acapella/mucolytics - follow up CT noted - fluid? will discuss with nephrology - he has been saturating very well on 2L, his ABG is WNL however he still does complain of shortness of breath 2. Bacteremia - one cultures positive for ESBL Ecoli - 3 cultures NTD - continue abx as per above - his previous admission BCx + Ecoli 3. ESRD d/t PCKD s/p renal transplant - continue with immunosuppressive therapy, Imuran discontinued - nephrology consultation appreciated 4. Pancytopenia/thrombocytopenia - improving s/p neupogen - thrombocytopenia - no signs of bleeding 5. CAD - Hx of CABG 6. CHF - preserved ejection fraction - compensated 7. Hx testicular cancer 8. Anemia - stable - will continue to follow 9. Benign prostatic hypertrophy (BPH) - continue home regimen - flomax 0.4 mg 10. Secondary hyperparathyroidism. - calcitriol adjusted to 0.25 mcg daily - follow as per nephrology 11. Hx Polio - restrictive lung disease/kyphoscoliosis 12. Esophageal achalasia - requires dilatation as needed 13. DVT prophylaxis - mechanical Dispo: Continue with current regimen for now; discuss further with nephrology regarding utility of diuresing; discussed with ALEENALig[facility] Horowitz for transfer, however no beds are available. He is on a waiting list. VS,Fishbone, I+O VS, Fishbone, I+O Laboratory Tests 03/01/17 05:51 Red Blood Count 2.92 L, Mean Corpuscular Volume 99.3 H, Mean Corpuscular Hemoglobin 32.5, Mean Corpuscular Hemoglobin Concent 32.8, Red Cell Distribution Width 15.4 H, Neutrophils (%) (Auto) 77.2 H, Lymphocytes (%) (Auto ) 8.9 L, Monocytes (%) (Auto) 8.0 H, Eosinophils (%) (Auto) 1.5, Basophils (%) ( Auto) 0.3, Neutrophils # (Auto) 2.6, Lymphocytes # (Auto) 0.3 L, Monocytes # ( Auto) 0.3, Eosinophils # (Auto) 0.1, Basophils # (Auto) 0.0, Calcium Level 8.3 L Vital Signs Date Time Temp Pulse Resp B/P (MAP) Pulse Ox O2 Delivery O2 Flow Rate FiO2 03/01/17 04:08 98.4 55 20 131/62 (85) 100 Nasal Cannula 2.0 RODNEY MCCORMACK MD Mar 01, 2017 07:48
[2017-03-01 08:00] VITALS: BP 142/66
[2017-03-01] MEDS: CALCIUM CARBONATE 500 MG CHEW U/D PO SCH (08:04)
[2017-03-01] MEDS: PANTOPRAZOLE 40MG TAB (PROTONIX) PO SCH (08:04)
[2017-03-01] MEDS: MEROPENEM INJ 1 GM in APPROPRIATE DILUENT 1 EA IV SCH ×4 (08:04→19:27)
[2017-03-01] MEDS: predniSONE 5 MG TAB PO SCH (08:04)
[2017-03-01] MEDS: CALCITRIOL 0.25 MCG CAP (S0169) PO SCH (08:04)
[2017-03-01] MEDS: TACROLIMUS 0.5 MG CAP PO SCH ×2 (08:04→21:43)
[2017-03-01] MEDS: POTASSIUM CHLORIDE 10 MEQ SR TABLET PO SCH (08:05)
[2017-03-01] MEDS: ACETAMINOPHEN TAB 650MG DOSE (2X325MG) PO PRN ×2 (11:36→22:48)
[2017-03-01 11:57] VITALS: BP 131/60
[2017-03-01] MEDS ORDERED: FUROSEMIDE 40 MG/4 ML VIAL (J1940) IV ONE (13:00)
[2017-03-01 16:00] VITALS: BP 125/60
[2017-03-01 20:00] VITALS: BP 122/57
[2017-03-01] MEDS: TAMSULOSIN 0.4 MG CAP PO SCH (21:43)
[2017-03-01] MEDS: ATORVASTATIN 10 MG TAB PO SCH (21:43)
[2017-03-01] MEDS ORDERED: IPRATROPIUM 0.5MG/ALBUTEROL 2.5MG INH SOL UD 3ML (DUONEB)(J7620) NEB ONE (23:15)
[2017-03-02] VITALS: BP 133/62
[2017-03-02] MEDS: MEROPENEM INJ 1 GM in APPROPRIATE DILUENT 1 EA IV SCH ×4 (00:25→23:21)
--- NOTE | 2017-03-02 02:15 | IPN ---
DATE OF SERVICE: 03/01/2017 SUBJECTIVE: The patient is seen this morning at the bedside. He reports that he was able to ambulate around the unit twice yesterday and was not significantly dyspneic with the exertion; however, this morning, he states when he was trying to get cleaned up he found himself to be quite short of breath and it took him a lot longer to do simple tasks due to increased work of breathing. He remains afebrile and reports that he is tolerating oral intake well without issues. His shortness of breath is not present at rest and only with exertion. VITAL SIGNS: Temperature 97.9, pulse 62, respiratory rate 19, blood pressure 142/66, saturating 100% on 2 liters nasal cannula. Intake and output: Oral intake yesterday is only recorded as 540 mL. Urine output is recorded as only 300 mL. I suspect his intake and output (I and O) were not fully recorded in the past 24 hours. His weight on the bed scale today 78.7 kg. GENERAL: The patient is seen lying in bed, comfortable, in no acute respiratory distress while at rest. HEAD AND NECK: The extraocular muscles are intact. The oral mucosa is moist. He is pale. CARDIAC: S1, S2. Regular rate and rhythm. 2+ radial pulse. LUNGS: There is diminished air entry over the left lung field and there is moderate air movement on the right. There is no overt crackle or rale. He is seen on nasal cannula. He seems to be mildly tachypneic with prolonged speech. ABDOMEN: Soft, distended, nontender and ascitic. There are bowel sounds. NEUROLOGIC: He is awake, alert, oriented, baseline mentation without issues. PSYCHIATRIC: Appropriate mood and affect. SKIN: There is no rash or ulcers. Skin is pale. EXTREMITIES: There is 1+ pitting edema in the bilateral lower extremities. MUSCULOSKELETAL: The patient is not seen ambulating today. LABORATORIES: White count 3.4, hemoglobin 9.5, platelets 25. Chemistry: Sodium 140, potassium 4.4, bicarbonate 36, BUN 15, creatinine 0.7, glucose 129, magnesium 1.8. Tacrolimus trough pending. CMV PCR and EBV PCR are pending. Microbiology: Blood cultures 02/27 no growth to date for two sets. IMAGING: CT chest noncontrast 02/28: Small bilateral pleural effusions, increased on the right, two small peripheral parenchymal opacities in the right upper lobe, multiple hepatic cysts. INPATIENT MEDICATIONS: Today I gave the patient a dose of Lasix 40 mg intravenously (IV) times one. His vancomycin is adjusted as per pharmacy. He continues on meropenem. I discontinued his standing potassium supplement. There is no other change in his medications. PROBLEMS: 1. 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 The patient yesterday reports he was able to ambulate around the unit twice and felt comfortable from a respiratory point of view; however, today again he felt dyspneic with simple exertion. He has peripheral edema on exam and ascites as well. I am giving him a dose of Lasix 40 mg IV times one for correction of his volume status. He also has pleural effusion on CT chest. As far as his pneumonia, he continues on vancomycin as adjusted by the pharmacy along with meropenem. Repeat blood cultures 2 days prior remain negative and he remains afebrile. His Va-Aviles virus (EBV) and cytomegalovirus (CMV) polymerase chain reaction (PCR) are pending. Absolute neutrophil count has improved with one dose of Neupogen. I see no urgent reason to give him another dose at this time. His Imuran remains on hold. 2. Status post renal allograft. The patient remains with excellent allograft function. He continues on Prograf and prednisone and his Imuran is on hold in view of his pneumonia. His tacrolimus level is pending. Goal is 4-6. 3. Pancytopenia. The patient's hemoglobin has been fairly stable. His platelet count is 25,000 with no active sign of bleeding. No urgent indication for platelet transfusion at this time. His neutropenia has improved with one dose of Neupogen. His Imuran remains on hold. 4. Hypervolemia with pitting edema, ascites and pleural effusion. We will continue to diurese the patient. He received a dose of Lasix today. He does have a metabolic alkalosis. As his recent arterial blood gas (ABG) did not show significant CO2 retention, his metabolic alkalosis may be secondary to his intermittent diuretic. 5. Disposition. The patient is awaiting transfer to [facility].
[2017-03-02 04:00] VITALS: BP 139/63
[2017-03-02 05:32] LABS: BASO % 0.3 % (0.0-1.0); EOS # 0.1 10^3/uL (0.0-0.50); EOS % 2.3 % (0.0-3.0); LYMPH # 0.5 10^3/uL (1.5-4.5); LYMPH % 14.8 % (24.0-44.0); MEAN CORPUSCULAR HEMOGLOBIN 32.6 pg (27.0-33.0); MEAN CORPUSCULAR HGB CONC 32.8 g/dl (32.0-36.5); MEAN CORPUSCULAR VOLUME 99.3 fl (80.0-96.0); MONO # 0.2 10^3/uL (0.0-0.8); MONO % 6.6 % (0.0-5.0); NEUTROPHILS # 2.3 10^3/uL (1.8-7.7); RED CELL DISTRIBUTION WIDTH 15.2 % (11.5-14.5); WHITE BLOOD COUNT 3.1 10^3/uL (4.0-10.0)
[2017-03-02] MEDS: SLF 3 ML SYR IV SCH ×3 (05:32→21:15)
[2017-03-02 05:36] LABS: PLATELET COUNT, AUTOMATED 29 10^3/uL (150-450); POS COUNT POS FLAG
[2017-03-02 05:46] LABS: ANION GAP 5 MEQ/L (8-16); BLOOD UREA NITROGEN 12 MG/DL (7-18); CALCIUM LEVEL 8.6 MG/DL (8.8-10.2); CARBON DIOXIDE LEVEL 35 MEQ/L (21-32); CHLORIDE LEVEL 102 MEQ/L (98-107); GLOMERULAR FILTRATION RATE > 60.0 (>42); GLUCOSE, FASTING 100 MG/DL (83-110); MAGNESIUM LEVEL 1.7 MG/DL (1.8-2.4); POTASSIUM SERUM 3.8 MEQ/L (3.5-5.1); SODIUM LEVEL 142 MEQ/L (136-145)
[2017-03-02 08:00] VITALS: BP 138/65
[2017-03-02] MEDS: CALCIUM CARBONATE 500 MG PO SCH (08:45)
[2017-03-02] MEDS: TACROLIMUS 0.5 MG CAP PO SCH ×2 (08:46→21:15)
[2017-03-02] MEDS: CALCITRIOL 0.25 MCG CAP (S0169) PO SCH (08:46)
[2017-03-02] MEDS: PANTOPRAZOLE 40MG TAB (PROTONIX) PO SCH (08:46)
[2017-03-02] MEDS: CALCIUM CARBONATE 500 MG CHEW U/D PO SCH (08:46)
[2017-03-02] MEDS: predniSONE 5 MG TAB PO SCH (08:46)
[2017-03-02] MEDS: DOCUSATE SODIUM 100 MG CAP PO PRN (08:55)
[2017-03-02 11:46] VITALS: BP 129/56
--- NOTE | 2017-03-02 12:33 | IPN ---
DATE: 03/02/2017 He is feeling better today than he had at presentation. Shortness of breath at baseline, still. Temperature 97.4, pulse 69, respiratory rate 18, blood pressure 129/56, 100% on 2 liters nasal cannula. Input and output notable for a negative fluid balance of -1425. One bowel movement yesterday. He is awake, appropriately interactive and pleasantly conversant. Remembers me from previous encounters. Head is normocephalic. Neck supple. Breathing is symmetrical at rest. He is speaking in complete sentences. No accessory muscle use. Heart is in a normal rhythm, S1, S2. Abdomen is distended from my last visit with the patient several months ago. There is a fluid wave noted. It is nontender. White cell count 3.1, hemoglobin 10, platelets 29. BUN 12, creatinine 0.7. ASSESSMENT: This is a 71-year-old being treated for health care associated pneumonia. PLAN: 1. For pneumonia, the patient continues on broad-spectrum antibiotics. He is improving clinically. 2. The patient had one culture that showed Extended spectrum beta-lactamases (ESBL) Escherichia coli. Continue with antibiotics as per above. 3. The patient has endstage renal disease, status post renal transplant for polycystic kidney disease that is immunosuppressed, I discussed this case in person with Dr. Smallwood. We are pursuing further diuresis. No role for paracentesis at this time. I did obtain informed consent for blood transfusion should albumin therapy become necessary. 4. The patient has schulz cytopenia and thrombocytopenia. He did receive Neupogen during this stay. 5. The patient has coronary artery disease status post coronary artery bypass graft (CABG). 6. The patient has congestive heart failure with preserved left ventricular ejection fraction. 7. The patient has secondary hyperparathyroidism. 8. The patient has a history of polio and restrictive lung disease. 9. The patient has esophageal achalasia with intermittent dilatation. 10. The patient has mechanical deep venous thrombosis prophylaxis. 11. Patient had sepsis present on admission based on SIRS criteria and lactic acid of 5.3. MTDD
[2017-03-02] MEDS ORDERED: POTASSIUM CHLORIDE 10 MEQ SR TABLET PO ONE (12:45)
[2017-03-02] MEDS ORDERED: FUROSEMIDE 40 MG/4 ML VIAL (J1940) IV ONE (12:45)
[2017-03-02] MEDS: MAGNESIUM OXIDE 400 MG TAB (MAG-OX) PO SCH (13:07)
[2017-03-02 15:54] VITALS: BP 140/60
--- NOTE | 2017-03-02 18:23 | IPN ---
DATE: 03/02/2017 SUBJECTIVE: The patient is seen this morning at the bedside. He reports while he was cleaning up this morning, he felt less short of breath then he had yesterday and he would like to go for a walk around the unit later on in the morning. Denies any shortness of breath and responded well to a dose of Lasix yesterday. VITAL SIGNS: Temperature 97.4, pulse 55-61, respiratory rate 18, blood pressure 138/65, saturating 100% on 2 liters nasal cannula. INTAKE AND OUTPUT: Oral intake was likely not completely recorded yesterday. Urine output was 1675 mL. Weight in the bed scale today is 78.6 kg, which is fairly similar to his weight for the past three days. GENERAL: The patient is seen in bed, lying down, appears stated age, in no acute distress. He is pleasant and appropriately interactive and conversational. Extraocular muscles intact. His tongue is moist. NECK: Supple. CARDIAC: S1-S2. Regular rate. Two plus radial pulse. There is trace to one plus edema in the bilateral lower extremities. CHEST: There is diminished air entry in the left lung field and moderate air excursion on the right. There is no accessory muscle use. He seems comfortable on nasal cannula at rest. No overt crackle or rale. ABDOMEN: Soft, distended and ascitic. There is no tension to his ascites. NEUROLOGIC: Awake, alert, at baseline mentation without issues. PSYCHIATRIC: Appropriate mood and affect. SKIN: There is no rash or ulcers. He is quite pale. LABORATORIES: White count 3.1, hemoglobin 10.0, platelets 29, improving from prior. Sodium 142, potassium 3.8, bicarbonate 35, BUN 12, creatinine 0.7, magnesium 1.7. Cytomegalovirus (CMV) and Va-Aviles virus polymerase chain reaction (PCR) and tacrolimus trough, all pending. INPATIENT MEDICATIONS: The patient continues on: - meropenem; he was previously on vancomycin. I do not see that at present. - He received a dose of Lasix 40 mg IV times one today from me - He is also started on magnesium 400 mg by mouth daily - He was also given a dose of potassium 40 mEq by mouth times one The remainder of medications are unchanged from prior. PROBLEMS: 1. 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 The patient does seem to be symptomatically improving. He was on empiric meropenem and vancomycin. I see he is no longer receiving vancomycin. Last level as 19 on 02/28/2017. He remains afebrile, although he continues to be dependent on nasal cannula. I do think that there is an element of hypervolemia in his shortness of breath and he continues on chronic diuresis. In view of his pneumonia, his Imuran is held and he did receive a dose of Neupogen for neutropenia. His Va-Aviles virus and cytomegalovirus (CMV) and polymerase chain reactions (PCRs) are pending. 2. Status post renal allograft. The patient continues with excellent allograft function and continues on Prograf and prednisone. Imuran is on hold in view of pneumonia. Prograf level is pending. Goal is 4-6. 3. Hypervolemia with pitting edema, ascites and pleural effusion. Likely also causing some degree of his shortness of breath. We will continue to diurese the patient. He received another dose of Lasix 40 mg IV times one today with supplementation of potassium and magnesium. 4. Pancytopenia. The patient's hemoglobin has been fairly stable. His platelet count is improving. He received a one-time dose of Neupogen and his Imuran remains on hold. Plan of care is discussed with Dr. Mtz. MANUEL
[2017-03-02 20:00] VITALS: BP 133/63
[2017-03-02] MEDS: ATORVASTATIN 10 MG TAB PO SCH (21:15)
[2017-03-02] MEDS: ACETAMINOPHEN TAB 650MG DOSE (2X325MG) PO PRN (21:15)
[2017-03-02] MEDS: TAMSULOSIN 0.4 MG CAP PO SCH (21:15)
[2017-03-03] VITALS (7 sets, daily range): BP systolic 111–145; BP diastolic 57–80
[2017-03-03] MEDS: SLF 3 ML SYR IV SCH ×3 (05:13→20:38)
[2017-03-03 05:57] LABS: BASO % 0.4 % (0.0-1.0); EOS # 0.1 10^3/uL (0.0-0.50); EOS % 2.9 % (0.0-3.0); IMMATURE GRANULOCYTE % 3.3 % (0-0); LYMPH # 0.4 10^3/uL (1.5-4.5); LYMPH % 17.2 % (24.0-44.0); MEAN CORPUSCULAR HEMOGLOBIN 31.9 pg (27.0-33.0); MEAN CORPUSCULAR HGB CONC 32.1 g/dl (32.0-36.5); MEAN CORPUSCULAR VOLUME 99.3 fl (80.0-96.0); MONO # 0.2 10^3/uL (0.0-0.8); NEUTROPHILS # 1.6 10^3/uL (1.8-7.7); NEUTROPHILS % 66.2 % (36.0-66.0); WHITE BLOOD COUNT 2.4 10^3/uL (4.0-10.0)
[2017-03-03 06:03] LABS: POS COUNT POS FLAG
[2017-03-03 06:04] LABS: PLATELET COUNT, AUTOMATED 28 10^3/uL (150-450)
[2017-03-03 06:11] LABS: IMMATURE PLATELET FRACTION % 6.1 % (0.0-10.9)
[2017-03-03 06:13] LABS: ANION GAP 2 MEQ/L (8-16); BLOOD UREA NITROGEN 15 MG/DL (7-18); CALCIUM LEVEL 8.6 MG/DL (8.8-10.2); CARBON DIOXIDE LEVEL 37 MEQ/L (21-32); CHLORIDE LEVEL 102 MEQ/L (98-107); CREATININE FOR GFR 0.74 MG/DL (0.70-1.30); GLOMERULAR FILTRATION RATE > 60.0 (>42); GLUCOSE, FASTING 95 MG/DL (83-110); MAGNESIUM LEVEL 1.6 MG/DL (1.8-2.4); POTASSIUM SERUM 4.1 MEQ/L (3.5-5.1); SODIUM LEVEL 141 MEQ/L (136-145)
[2017-03-03] MEDS ORDERED: MAG SULF 1GM/100ML (MAG RUN) 1 GM in APPROPRIATE DILUENT 1 EA IV ONE (08:15)
[2017-03-03] MEDS: MEROPENEM INJ 1 GM in APPROPRIATE DILUENT 1 EA IV SCH ×2 (09:24→16:18)
[2017-03-03] MEDS: CALCIUM CARBONATE 500 MG PO SCH (09:25)
[2017-03-03] MEDS: TACROLIMUS 0.5 MG CAP PO SCH ×2 (09:26→20:34)
[2017-03-03] MEDS: MAGNESIUM OXIDE 400 MG TAB (MAG-OX) PO SCH (09:26)
[2017-03-03] MEDS: CALCITRIOL 0.25 MCG CAP (S0169) PO SCH (09:26)
[2017-03-03] MEDS: PANTOPRAZOLE 40MG TAB (PROTONIX) PO SCH (09:26)
[2017-03-03] MEDS: predniSONE 5 MG TAB PO SCH (09:26)
[2017-03-03] MEDS ORDERED: FUROSEMIDE 40 MG/4 ML VIAL (J1940) IV ONE (12:15)
[2017-03-03] MEDS ORDERED: aMILoride 5 MG TAB PO ONE (13:00)
--- NOTE | 2017-03-03 14:26 | IPN ---
DATE: 03/03/2017 Ms. Das is feeling well today. She has no complaints of pain, chest pain or shortness of breath. She is sitting up at bedside eating Kinyarwanda toast on my arrival. Temperature 97.7, pulse 58, respiratory rate 16, blood pressure 111/70, 98% on 2 liters nasal cannula. Ins and outs notable for a negative fluid balance of -510. No bowel movements noted. Weight is 78.9 kg. Body mass index 28.9. He is awake, appropriately interactive, pleasantly conversant. Breathing is symmetrical, rested. Heart is distant sounding, normal S1, S2. Abdomen soft, doughy, nontender. There is a fluid wave noted. White cell count 2.4, hemoglobin 9.5, platelets of 28. BUN 15, creatinine 0.7. ASSESSMENT: This is a 71-year-old being treated for health care associated pneumonia. PLAN: 1. For pneumonia, patient is on broad spectrum antibiotics and is improving clinically. Six days of broad spectrum antibiotics. Will continue with two more doses of meropenem and will discontinue at that point. Continue to monitor him clinically. 2. Patient has end stage renal disease, status post renal transplant for polycystic kidney disease and now immunosuppressed. Discussed this case in person and in agreement with Dr. Smallwood. Pursuing further diuresis. No role again for paracentesis. 3. Patient has pancytopenia and thrombocytopenia. He has received Neupogen during this stay. Will continue to monitor his CBC. 4. Patient has coronary artery disease, status post coronary artery bypass graft (CABG). 5. Patient has history of congestive heart failure with preserved left ventricular ejection fraction. 6. Patient has secondary hyperparathyroidism. 7. Patient has history of polio and restrictive lung disease. 8. Patient has history of esophageal achalasia requiring intermittent dilatation. 9. Patient has mechanical deep vein thrombosis (DVT) prophylaxis.
[2017-03-03] MEDS ORDERED: FUROSEMIDE 20 MG/2 ML VIAL (J1940) IV ONE (17:15)
--- NOTE | 2017-03-03 17:44 | IPN ---
DATE: 03/03/2017 SUBJECTIVE: The patient is seen this morning at the bedside. He reports that he ambulated twice yesterday around the unit without any significant respiratory troubles that are different from his baseline. He does continue to require nasal cannula. Patient remains afebrile and in good spirits. VITAL SIGNS: Temperature 98.7, pulse 53-65, respiratory rate 16-18, blood pressure 130/62, saturating 100% on 2 liters nasal cannula. Intake and output: Oral intake yesterday was recorded as 440 mL. Urine output was recorded as 950 mL. Net negative 510, if the oral intake is accurate. Weight in the bed scale today is 78.9 kg. GENERAL: The patient is seen lying in bed comfortable in no acute distress in good spirits. Extraocular muscles are intact. Oral mucosa is moist. NECK: Supple. CARDIAC: S1, S2, regular rate. Radial pulse 2+. There is 1+ pitting edema in the bilateral lower extremities. RESPIRATIONS: There is diminished air entry in the left hemithorax and moderate air movement on the right. He remains on nasal cannula. There is no shortness of breath at rest. No tachypnea. He is not seen ambulating. The abdomen is soft, distended with ascites and non-tender RLQ allograft NEUROLOGIC: At baseline mentation without issues. PSYCHIATRIC: Appropriate mood and affect. SKIN: There is no rash or ulcers. LABORATORY DATA: White count 2.4, hemoglobin 9.5, platelets 28. Sodium 141, potassium 4.1, bicarbonate 37, BUN 15, creatinine 0.7, magnesium 1.6. Tacrolimus level 2.8. INPATIENT MEDICATIONS: The patient received a dose of Lasix 40 mg intravenous (IV) times one and started on amiloride 2.5 mg by mouth daily. He as well received a dose of magnesium. There is no other significant change in the medications. PROBLEMS: 1. 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 He continues to symptomatically improve. Reports he is ambulating with greater ease than previously. He has received about a week of empiric antibiotics. He remains afebrile and continues to be on nasal cannula. He is moderately hypervolemic on examination and today received a dose of 40 mg IV Lasix along with oral amiloride, and I will likely give another dose of Lasix in the evening. 2. Status post renal allograft. The patient continues with excellent allograft function and on immunosuppression with Prograf and prednisone. Imuran is on hold in view of pneumonia. Prograf level is 2.8, slightly below goal, but patient did have a few missed doses. Will continue current dose of 0.5 mg by mouth twice a day and plan to check another dose in the near future. Prior levels have been appropriate on current dose. 3. Hypervolemia with pitting edema, ascites, and pleural effusion, likely also causing some degree of his shortness of breath. Received a dose of 40 mg Lasix IV times one along with 2.5 mg of amiloride being started daily. He will likely get another dose of IV Lasix in the evening. Continue supplementation of potassium and magnesium. 4. Pancytopenia. Hemoglobin has been stable. Platelet count is slowly improving. He received a one-time dose of Neupogen, and Imuran remains on hold. MTDD
[2017-03-03] MEDS: ATORVASTATIN 10 MG TAB PO SCH (20:34)
[2017-03-03] MEDS: TAMSULOSIN 0.4 MG CAP PO SCH (20:34)
[2017-03-03] MEDS: ACETAMINOPHEN TAB 650MG DOSE (2X325MG) PO PRN (20:34)
[2017-03-04] VITALS (7 sets, daily range): BP systolic 113–140; BP diastolic 50–65
[2017-03-04] MEDS: MEROPENEM INJ 1 GM in APPROPRIATE DILUENT 1 EA IV SCH ×2 (00:29→08:37)
[2017-03-04 05:56] LABS: MEAN CORPUSCULAR HEMOGLOBIN 32.6 pg (27.0-33.0); MEAN CORPUSCULAR VOLUME 98.7 fl (80.0-96.0); RED CELL DISTRIBUTION WIDTH 15.1 % (11.5-14.5); WHITE BLOOD COUNT 2.2 10^3/uL (4.0-10.0)
[2017-03-04 05:57] LABS: PLATELET COUNT, AUTOMATED 32 10^3/uL (150-450); POS COUNT POS FLAG; POSITIVE MORPH POS FLAG
[2017-03-04 05:58] LABS: ADD MANUAL DIFFER YES; DIFF SLIDE NUMBER 5; IMMATURE PLATELET FRACTION % 6.2 % (0.0-10.9)
[2017-03-04] MEDS: SLF 3 ML SYR IV SCH ×3 (06:00→20:57)
[2017-03-04 06:08] LABS: ANION GAP 5 MEQ/L (8-16); BLOOD UREA NITROGEN 16 MG/DL (7-18); CALCIUM LEVEL 8.3 MG/DL (8.8-10.2); CARBON DIOXIDE LEVEL 37 MEQ/L (21-32); CHLORIDE LEVEL 99 MEQ/L (98-107); CREATININE FOR GFR 0.78 MG/DL (0.70-1.30); GLOMERULAR FILTRATION RATE > 60.0 (>42); GLUCOSE, FASTING 101 MG/DL (83-110); MAGNESIUM LEVEL 1.7 MG/DL (1.8-2.4); POTASSIUM SERUM 3.6 MEQ/L (3.5-5.1); SODIUM LEVEL 141 MEQ/L (136-145)
[2017-03-04 06:54] LABS: BANDS 2 % (< 11); BASOPHILS 1 % (0-4); EOSINOPHILS 3 % (0-5)
[2017-03-04 06:55] LABS: ANISOCYTOSIS 1+
[2017-03-04] MEDS: CALCIUM CARBONATE 500 MG PO SCH (08:37)
[2017-03-04] MEDS: TACROLIMUS 0.5 MG CAP PO SCH ×2 (08:37→20:53)
[2017-03-04] MEDS: predniSONE 5 MG TAB PO SCH (08:38)
[2017-03-04] MEDS: MAGNESIUM OXIDE 400 MG TAB (MAG-OX) PO SCH (08:38)
[2017-03-04] MEDS: CALCITRIOL 0.25 MCG CAP (S0169) PO SCH (08:38)
[2017-03-04] MEDS: PANTOPRAZOLE 40MG TAB (PROTONIX) PO SCH (08:38)
[2017-03-04] MEDS: aMILoride 5 MG TAB PO SCH (08:39)
[2017-03-04] MEDS ORDERED: FUROSEMIDE 40 MG TAB PO SCH (09:00)
--- NOTE | 2017-03-04 13:59 | IPN ---
DATE OF SERVICE: 03/04/2017 Mr. Barrera is feeling well today. Breathing he feels is closer to his baseline. No chest pain. No shortness of breath. Has been out of bed walking short distances, not as strong as he usually is. Temperature 97, pulse 62, respiratory rate 18, blood pressure 120/57, 98% on 2 liters. 96% on room air. Input and output notable for positive fluid balance of 917. No bowel movements. Is awake, appropriately interactive, pleasantly conversant. Breathing is symmetrical, rested. Heart is distant sounding. Abdomen soft, doughy, nontender. White cell count 2.2, hemoglobin 9.7, platelets of 32. Neutrophils 71, bands 2%. BUN 16, creatinine 0.8. Magnesium is 1.7. Va-Aviles virus Deoxyribonucleic acid is positive. ASSESSMENT: 71-year-old being treated for health care associated pneumonia. PLAN: 1. For pneumonia, patient is now off antibiotics and he appears to be at baseline. 2. Patient has end stage renal disease, status post renal transplant for polycystic kidney disease and now immunosuppressed. Va-Aviles virus viral load is positive. This could be related to his pancytopenia and thrombocytopenia. This will be discussed with veterinarian small animal. 3. Patient has coronary artery disease, status post graft. 4. Patient has history of congestive heart failure with preserved left ventricular ejection fraction. Appears to be compensated. 5. Patient has secondary hyperparathyroidism. 6. Patient has history of polio and restrictive lung disease. He is not requiring supplemental oxygen at this point. 7. Physical therapy has been ordered to assess for possible discharge tomorrow. 8. Patient has history of esophageal achalasia requiring intermittent dilatation. 9. Patient has mechanical deep vein thrombosis (DVT) prophylaxis.
[2017-03-04] MEDS: ACETAMINOPHEN TAB 650MG DOSE (2X325MG) PO PRN ×2 (14:16→20:55)
[2017-03-04] MEDS: TAMSULOSIN 0.4 MG CAP PO SCH (20:52)
[2017-03-04] MEDS: ATORVASTATIN 10 MG TAB PO SCH (20:52)
[2017-03-05 04:00] VITALS: BP 128/67
[2017-03-05] MEDS: SLF 3 ML SYR IV SCH ×3 (04:28→21:13)
[2017-03-05] MEDS: ACETAMINOPHEN TAB 650MG DOSE (2X325MG) PO PRN ×4 (04:33→23:38)
[2017-03-05 08:00] VITALS: BP 135/58
[2017-03-05] MEDS: CALCIUM CARBONATE 500 MG PO SCH (08:58)
[2017-03-05] MEDS: MAGNESIUM OXIDE 400 MG TAB (MAG-OX) PO SCH (08:59)
[2017-03-05] MEDS: predniSONE 5 MG TAB PO SCH (08:59)
[2017-03-05] MEDS: PANTOPRAZOLE 40MG TAB (PROTONIX) PO SCH (08:59)
[2017-03-05] MEDS: CALCITRIOL 0.25 MCG CAP (S0169) PO SCH (08:59)
[2017-03-05] MEDS: FUROSEMIDE 20 MG TAB PO SCH (09:00)
[2017-03-05] MEDS: TACROLIMUS 0.5 MG CAP PO SCH ×2 (09:00→21:12)
[2017-03-05] MEDS: aMILoride 5 MG TAB PO SCH (09:01)
[2017-03-05 09:51] LABS: ALBUMIN 2.7 GM/DL (3.2-5.2); ANION GAP 5 MEQ/L (8-16); BLOOD UREA NITROGEN 17 MG/DL (7-18); CALCIUM LEVEL 8.6 MG/DL (8.8-10.2); CARBON DIOXIDE LEVEL 37 MEQ/L (21-32); CHLORIDE LEVEL 99 MEQ/L (98-107); GLOMERULAR FILTRATION RATE > 60.0 (>42); GLUCOSE, FASTING 166 MG/DL (83-110); MAGNESIUM LEVEL 1.7 MG/DL (1.8-2.4); POTASSIUM SERUM 3.6 MEQ/L (3.5-5.1); SODIUM LEVEL 141 MEQ/L (136-145)
--- NOTE | 2017-03-05 11:30 | IPN ---
DATE: 03/04/2017 SUBJECTIVE: The patient was seen this morning at the bedside. He reports that this is the best he has felt throughout his hospitalization. He states his breathing feels pretty much close to what it is at home. Reports that he is ambulating, but not yet at baseline as far as exercise tolerance and dyspnea on exertion. VITAL SIGNS: Temperature 97.6, pulse 70, respiratory rate 18, blood pressure 117/61, saturating 96% on room air. Intake and output: Oral intake is 1017 mL. Urine output is not recorded. Weight on the bed scale today is 78.1 kg which is reduced from prior. GENERAL: The patient is seen lying in bed, awake, alert, conversational in no acute distress. HEENT: Extraocular muscles are intact. Oral mucosal is moist. CARDIAC: S1, S2 regular rate. 2+ radial pulse. There is only trace edema in the lower extremities today. LUNGS: There is diminished air entry on the left hemithorax and moderate air movement on the right with kyphoscoliosis. He is seen on nasal cannula. There is no shortness of breath at rest. No tachypnea. ABDOMEN: The abdomen is soft. The renal allograft in the right lower quadrant is nontender. NEURO: He is at baseline mentation, oriented times four. PSYCHIATRIC: Appropriate mood and affect. SKIN: There is no rash or ulcers. LABS: White count 2.2, hemoglobin 9.7, platelets 32. Sodium 141, potassium 3.6, bicarbonate 37, BUN 16, creatinine 0.7, magnesium 1.7. CMV quantitative TCR negative. EBV qualitative PCR positive. INPATIENT MEDICATIONS: The patient is off of antibiotics. He is switched to oral diuretics. Received Lasix 40 mg by mouth times one today with amiloride 2.5. The remainder of the medications are unchanged from prior. PROBLEMS: 1. Pneumonia with shortness of breath: The patient is symptomatically significantly improved. He is weaned off of nasal cannula. Has been ambulating daily though not yet at his baseline exercise tolerance. He is discontinued off antibiotics and remains afebrile. His volume status has improved and I will put him back on his home diuretic regimen with oral Lasix and amiloride. 2. Status post renal allograft: The patient continues with excellent allograft function. He continues on Prograf and prednisone. We will continue to hold Imuran. Will repeat Prograf level on next office followup. 3. Hypervolemia: The patient's volume status has improved. I am now putting him back on his home diuretic regimen of oral Lasix and amiloride. 4. Pancytopenia: The patient's hemoglobin remains stable. His white count is slowly drifting down again down to 2.2 today. Will plan for another dose of neupogen. Platelets have slowly been improving. We will continue to hold Imuran. DISCHARGE PLANNING: The patient is symptomatically improving and probable discharge within 24-48 hours with close followup in the outpatient setting. Plan of care is discussed with Dr. Speedy To. [facility] CENTERMelvin
[2017-03-05 12:00] VITALS: BP 128/59
[2017-03-05] MEDS ORDERED: FILGRASTIM 300 MCG/0.5 ML SYRINGE (J1442) SC ONE (14:00)
[2017-03-05 16:00] VITALS: BP 125/63
--- NOTE | 2017-03-05 18:23 | IPN ---
DATE: 03/05/2017 SUBJECTIVE: Mr. Das is feeling well today. He has been up and walking around. He does get short of breath with movement, was found to be hypoxic walking distances. I did order a physical therapy evaluation yesterday, but he walked three times in the hallway, and physical therapy seems unnecessary. OBJECTIVE: VITAL SIGNS: Temperature is 97.9, pulse 60, respiratory rate 17, blood pressure 135/58, 95% on room air. INTAKE AND OUTPUT: Notable for positive fluid balance of 1550, one bowel movement yesterday. GENERAL: Awake, appropriately interactive, pleasantly conversant. LUNGS: Breathing is symmetrical, rested. HEART: Distant sounding. ABDOMEN: Soft, doughy, nontender. No significant arrhythmia on monitor. Pulse oximetry drops to 85 with ambulation while on room air. LABORATORY DATA: White cell count 2.2, hemoglobin 9.7, platelets 32. BUN 17, creatinine 0.9. Magnesium is 1.7. ASSESSMENT: This is a 71-year-old being treated for healthcare-associated pneumonia, now with ongoing hypoxia. PLAN: 1. For pneumonia, the patient is off antibiotics, appears to be close to his baseline except for ongoing hypoxia. 2. The patient has end-stage renal disease, status post renal transplant for polycystic kidney disease, and is immunosuppressed based on that. 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 3. The patient has coronary artery disease status post graft. 4. The patient has congestive heart failure, preserved left ventricular ejection fraction. Appears to be relatively euvolemic. 5. The patient has secondary hyperparathyroidism. 6. The patient has a history of polio and restrictive lung disease. Is requiring supplemental oxygen with ambulation. 7. The patient is ambulating well. 8. The patient has esophageal achalasia requiring intermittent dilatation. 9. The patient has appropriate deep venous thrombosis (DVT) prophylaxis. 10. Possible discharge tomorrow.
[2017-03-05] MEDS: TAMSULOSIN 0.4 MG CAP PO SCH (21:12)
[2017-03-05] MEDS: ATORVASTATIN 10 MG TAB PO SCH (21:12)
[2017-03-05 23:40] VITALS: BP 120/58
[2017-03-06 04:00] VITALS: BP 123/59
[2017-03-06] MEDS: SLF 3 ML SYR IV SCH ×3 (05:03→19:48)
[2017-03-06 08:06] VITALS: BP 123/75
[2017-03-06] MEDS: CALCIUM CARBONATE 500 MG PO SCH (08:13)
[2017-03-06] MEDS: FUROSEMIDE 20 MG TAB PO SCH (08:14)
[2017-03-06] MEDS: MAGNESIUM OXIDE 400 MG TAB (MAG-OX) PO SCH (08:14)
[2017-03-06] MEDS: TACROLIMUS 0.5 MG CAP PO SCH ×2 (08:14→19:44)
[2017-03-06] MEDS: aMILoride 5 MG TAB PO SCH (08:14)
[2017-03-06] MEDS: PANTOPRAZOLE 40MG TAB (PROTONIX) PO SCH (08:14)
[2017-03-06] MEDS: predniSONE 5 MG TAB PO SCH (08:14)
[2017-03-06] MEDS: CALCITRIOL 0.25 MCG CAP (S0169) PO SCH (08:15)
[2017-03-06] MEDS: ACETAMINOPHEN TAB 650MG DOSE (2X325MG) PO PRN (08:15)
[2017-03-06 08:46] LABS: MEAN CORPUSCULAR HEMOGLOBIN 33.3 pg (27.0-33.0); MEAN CORPUSCULAR HGB CONC 33.1 g/dl (32.0-36.5); MEAN CORPUSCULAR VOLUME 100.7 fl (80.0-96.0); RED CELL DISTRIBUTION WIDTH 15.4 % (11.5-14.5); WHITE BLOOD COUNT 9.4 10^3/uL (4.0-10.0)
[2017-03-06 08:53] LABS: ANION GAP 6 MEQ/L (8-16); BLOOD UREA NITROGEN 18 MG/DL (7-18); CALCIUM LEVEL 9.2 MG/DL (8.8-10.2); CARBON DIOXIDE LEVEL 34 MEQ/L (21-32); CHLORIDE LEVEL 101 MEQ/L (98-107); CREATININE FOR GFR 0.73 MG/DL (0.70-1.30); GLOMERULAR FILTRATION RATE > 60.0 (>42); GLUCOSE, FASTING 91 MG/DL (83-110); POTASSIUM SERUM 3.9 MEQ/L (3.5-5.1); SODIUM LEVEL 141 MEQ/L (136-145)
[2017-03-06 09:15] LABS: PLATELET COUNT, AUTOMATED 36 10^3/uL (150-450)
[2017-03-06 09:16] LABS: IMMATURE PLATELET FRACTION % 7.9 % (0.0-10.9)
[2017-03-06 12:00] VITALS: BP 124/58
--- NOTE | 2017-03-06 12:04 | IPN ---
DATE OF SERVICE: 03/05/2017 SUBJECTIVE: The patient was seen this morning at the bedside. He reports he feel well. His breathing continues to improve. He was ambulating without oxygen earlier this morning. Apparently, he desaturated to around 85% with exertion; and upon resting, his oxygen (O2) saturations came back up to 96%. INTAKE AND OUTPUT: Oral intake yesterday was recorded as 1900 mL. Urine output is incompletely recorded. Weight in the bed scale today is 78.1 kg. VITAL SIGNS: Temperature 97.2, pulse 63, respiratory rate 18, blood pressure 128/59, saturating 96% on room air. GENERAL: The patient is seen lying in bed, awake, alert, pleasantly interactive, and conversational, in no acute distress. Extraocular muscles are intact. Oral mucosal is moist. The neck is supple. CARDIAC: S1, S2, regular rate. 2+ radial pulse. There is ongoing trace to 1+ edema in the lower extremities. LUNGS: Showed diminished air entry all throughout the left hemithorax and moderate air movement on the right. He is seen on room air, comfortable, with no shortness of breath at rest and no tachypnea. The abdomen is soft and nontender. There is no tender to palpation in the right lower quadrant where his allograft is. NEUROLOGIC: He is at his baseline mentation, oriented times four. No deficits. PSYCHIATRIC: Appropriate mood and affect. SKIN: There are no rashes or ulcers. LABORATORIES: White count 2.2, hemoglobin 9.7, platelet 32. Chemistry: Is pending. INPATIENT MEDICATIONS: The patient's amiloride is increased to 5 mg daily, and he continues on torsemide 20 mg by mouth daily. We will give him another dose of neupogen today. The remainder of medications are unchanged from prior. PROBLEMS: 1. Hypoxia. The patient has received about 1 week of antibiotics empirically for pneumonia and has symptomatically improved. He has also received intravenous (IV) diuretics intermittent for hypervolemia. He is now seen comfortable at rest on room air, saturating well but continues to desaturate with ambulation and exertion. He does remain with some hypervolemia on examination, pending the results of his chemistry, which was drawn late this morning. I will adjust his diuretic regimen. 2. Status post renal allograft. Chemistry today is pending, but the patient overall has continued with excellent allograft function. Immunosuppression is with Prograf and prednisone. We plan to chromically keep him off of Imuran, in view pancytopenia. 3. Hypervolemia. I believe there is an element of hypervolemia contributing to the patient's shortness of breath and hypoxia. We will continue him on diuretics at this time. As he has a significant hypokalemic alkalosis, I will increase his amiloride to 5 mg. 4. Neutropenia. Will give another dose of neupogen today. DISCHARGE PLANNING: The patient is symptomatically improving but still had significant desaturation with ambulation and exertion and not yet optimized for discharge.
[2017-03-06] MEDS: TORSEMIDE 20 MG TAB PO SCH (13:18)
--- NOTE | 2017-03-06 13:46 | IPN ---
DATE OF SERVICE: 03/06/2017 Mr. Das is feeling well. This morning, he has had some loose stools and was, in fact, incontinent last night. No shortness of breath at rest but shortness of breath with activity. Temperature is 97.7, pulse 57, respiratory rate 20, blood pressure 123/75, 96% on room air. Intake and output (I and O) notable for a positive fluid balance of 1050. Weight 78 kg. Body mass index 28.6. He is awake, appropriately interactive, pleasantly conversant. Breathing is symmetrical, diminished. Heart is distant sounding. Normal S1, S2. He is not bradycardic on my examination. Abdomen: Soft, doughy, nontender, without rebound or guarding. There is lower extremity edema. White cell count 9.4, hemoglobin 9.9, and platelets of 36. INR is 1.1 Creatinine 0.73. My assessment is as follows: This is a 71-year-old being treated for healthcare-associated pneumonia earlier in his stay, now with ongoing hypoxia. The plan is as follows: 1. For pneumonia, the patient is off antibiotics, appears to be close to his baseline, although with increasing shortness of breath with activity today. He may benefit from Lasix. I have discussed this case with Dr. Gudino in person. 2. The patient has end-stage renal disease, status post renal transplant for polycystic kidney disease, and is immunosuppressed. The patient did receive neupogen yesterday for leukocytosis. 3. The patient has coronary artery disease, status post grafting. 4. The patient has diarrhea. Will send stool for Clostridium (C) difficile. It is difficult to assess his physical findings based on he is immunocompromised. 5. The patient has congestive heart failure, preserved left ventricular ejection fraction. He may benefit from Lasix. 6. The patient has secondary hyperparathyroidism. 7. The patient has a history of polio and restrictive lung disease. 8. The patient has esophageal achalasia requiring intermittent dilatation. 9. The patient has appropriate deep venous thrombosis (DVT) prophylaxis. No plan for discharge today.
--- NOTE | 2017-03-06 14:13 | REP ---
REASON: Dyspnea status post left lower lobectomy. COMPARISON: 02/25/2017 a portable exam. The left lower lobe opacity is unchanged. The cardiomediastinal silhouette is unchanged. There is cardiomegaly. There is chronic fibrotic change seen in the right lung status quo. There are no new abnormal opacities. Note is again made of previous median sternotomy. The osseous structures are unchanged. IMPRESSION: Stable chronic changes. Persistent opacity left lower lung field. Signed by Adriel Tejeda DO 03/06/2017 02:25 P
[2017-03-06] MEDS: VANCOMYCIN ORAL SOL 250MG/5ML ORAL SYRINGE PO SCH ×2 (15:21→17:57)
[2017-03-06 16:00] VITALS: BP 125/60
[2017-03-06] MEDS: TAMSULOSIN 0.4 MG CAP PO SCH (19:44)
[2017-03-06] MEDS: ATORVASTATIN 10 MG TAB PO SCH (19:44)
[2017-03-06 19:52] VITALS: BP 122/58
[2017-03-07] MEDS: VANCOMYCIN ORAL SOL 250MG/5ML ORAL SYRINGE PO SCH ×4 (00:09→17:52)
[2017-03-07 00:27] VITALS: BP 120/56
[2017-03-07 04:55] VITALS: BP 128/58
[2017-03-07] MEDS: ACETAMINOPHEN TAB 650MG DOSE (2X325MG) PO PRN ×2 (04:55→20:31)
[2017-03-07] MEDS: SLF 3 ML SYR IV SCH ×3 (05:37→20:31)
[2017-03-07 05:57] LABS: MEAN CORPUSCULAR HEMOGLOBIN 32.5 pg (27.0-33.0); MEAN CORPUSCULAR VOLUME 98.4 fl (80.0-96.0); RED CELL DISTRIBUTION WIDTH 15.5 % (11.5-14.5); WHITE BLOOD COUNT 6.8 10^3/uL (4.0-10.0)
[2017-03-07 05:59] LABS: PLATELET COUNT, AUTOMATED 39 10^3/uL (150-450)
[2017-03-07 06:11] LABS: ANION GAP 6 MEQ/L (8-16); BLOOD UREA NITROGEN 18 MG/DL (7-18); CALCIUM LEVEL 8.9 MG/DL (8.8-10.2); CARBON DIOXIDE LEVEL 36 MEQ/L (21-32); CHLORIDE LEVEL 98 MEQ/L (98-107); CREATININE FOR GFR 0.87 MG/DL (0.70-1.30); GLOMERULAR FILTRATION RATE > 60.0 (>42); GLUCOSE, FASTING 93 MG/DL (83-110); POTASSIUM SERUM 3.7 MEQ/L (3.5-5.1); SODIUM LEVEL 140 MEQ/L (136-145)
[2017-03-07 08:00] VITALS: BP 115/58
[2017-03-07] MEDS: CALCITRIOL 0.25 MCG CAP (S0169) PO SCH (08:37)
[2017-03-07] MEDS: TORSEMIDE 20 MG TAB PO SCH (08:38)
[2017-03-07] MEDS: TACROLIMUS 0.5 MG CAP PO SCH ×2 (08:38→20:31)
[2017-03-07] MEDS: MAGNESIUM OXIDE 400 MG TAB (MAG-OX) PO SCH (08:38)
[2017-03-07] MEDS: PANTOPRAZOLE 40MG TAB (PROTONIX) PO SCH (08:38)
[2017-03-07] MEDS: predniSONE 5 MG TAB PO SCH (08:39)
[2017-03-07] MEDS: CALCIUM CARBONATE 500 MG PO SCH (08:39)
[2017-03-07] MEDS: aMILoride 5 MG TAB PO SCH (08:40)
--- NOTE | 2017-03-07 09:37 | IPN ---
DATE OF SERVICE: 03/06/2017 SUBJECTIVE: The patient was seen and examined at the bedside today morning. The patient was laying in the bed. He is comfortable, hemodynamically stable. Renal function is stable. REVIEW OF SYSTEMS: The patient denies any fever, chills, rigors. He denies any chest pain, shortness of breath. The patient is complaining of diarrhea that started last night. He does report mild lower extremity edema. The rest of review of systems is negative. OBJECTIVE: VITAL SIGNS: Temperature is 97.7 degrees Fahrenheit, blood pressure is 123/75, pulse is 57, respiratory rate of 20, saturating 96% on room air. INTAKE AND OUTPUT: Urine output recorded yesterday was only 250 mL. There is no urine output recorded today. The weight in the bed scale is 78 kg. PHYSICAL EXAMINATION: GENERAL: The patient is awake, alert, oriented times three, lying in bed, in no apparent distress. HEAD AND NECK EXAMINATION: Extraocular muscles intact. Pupils equally round and reactive to light. Mucous membranes are moist. Neck is supple. There is no jugular venous distention (JVD). CARDIOVASCULAR: S1, S2, regular rate. No murmur, rub, and gallop. RESPIRATORY: Decreased breath sounds at the bases. The patient has scoliosis, which is convex on the right side. There are mild crepitations on the right base. ABDOMEN: Soft. Positive bowel sounds. The patient has hepatomegaly. He has right lower quadrant allograft, which is nontender to palpation. MUSCULOSKELETAL: No clubbing or cyanosis. He has 2+ edema on the bilateral lower extremities. CENTRAL NERVOUS SYSTEM (COMMERCIAL ASSISTANT): No focal neurological deficit. Power is 5/5 in all extremities. PSYCHIATRIC: Normal mood and affect. LABORATORY REVIEW: CBC showed a WBC of 9.4, hemoglobin 9.9, platelets are 36. BMP showed sodium 141, potassium 3.9, chloride 101, bicarbonate 34, BUN 18, creatinine is 0.73, glucose 91, calcium 9.2, BNP 1589. EBV qualitative DNA is positive. MICROBIOLOGY: Clostridium (C) difficile is positive in the stools. IMAGING: A chest x-ray PA and lateral done today morning showed stable chronic changes, persistent opacity in the left lower lung field. CURRENT INPATIENT MEDICATIONS: The patient's inpatient medications were all reviewed by me. His furosemide dose has been stopped. He has been started on torsemide 20 mg by mouth daily, and he has been started on vancomycin 125 mg by mouth every 6 hours. ASSESSMENT: A 71-year-old male with past medical history of polycystic kidney disease and polycystic liver disease, status post wiyot nephrectomy and left hepatic lobectomy, status post right lower quadrant renal allograft, history of polio infection in the past, restrictive lung disease, and history of left lower lobectomy, admitted this time because of hypoxia, hypervolemia, neutropenia. PLAN: 1. Presence of renal allograft. The patient's renal function is stable. He continues to be on Prograf and prednisone, which I will continue. Azathioprine was held because of infection and neutropenia. Continue to hold azathioprine at this time. 2. Hypoxia. It is secondary to a combination of restrictive lung disease, scoliosis, left lower lobe lobectomy, and hypervolemia. The patient is being diuresed with oral diuretics now. I have increased the torsemide dose to 20 mg daily. I would not aggressively diurese the patient at this time because he is having C. difficile associate diarrhea, as well. Continue current dose of amiloride 5 mg by mouth daily. 3. Neutropenia. It is most likely associated with immunosuppression. Azathioprine is on hold. The patient was given a dose of neupogen yesterday, and white cell count has adequately come up within the normal range now. 4. Clostridium (C) difficile colitis. The patient was found to have C. difficile on today morning. He has been started on oral vancomycin. Continue current dose for now. 5. Metabolic alkalosis. It is secondary to diuresis. Continue amiloride 5 mg daily, which would help with diuresis and prevent further metabolic alkalosis.
[2017-03-07 09:41] LABS: MAGNESIUM LEVEL 1.6 MG/DL (1.8-2.4)
[2017-03-07 12:00] VITALS: BP 116/56
[2017-03-07] MEDS ORDERED: MAG SULF 1GM/100ML (MAG RUN) 1 GM in APPROPRIATE DILUENT 1 EA IV ONE (15:00)
[2017-03-07 16:00] VITALS: BP 133/63
[2017-03-07] MEDS ORDERED: FLUCONAZOLE 100 MG in APPROPRIATE DILUENT 1 EA IV SCH (16:00)
[2017-03-07 20:00] VITALS: BP 128/60
[2017-03-07] MEDS: TAMSULOSIN 0.4 MG CAP PO SCH (20:30)
[2017-03-07] MEDS: ATORVASTATIN 10 MG TAB PO SCH (20:30)
[2017-03-08] VITALS: BP 133/60
[2017-03-08] MEDS: VANCOMYCIN ORAL SOL 250MG/5ML ORAL SYRINGE PO SCH ×2 (00:37→06:23)
[2017-03-08 04:00] VITALS: BP 147/72
[2017-03-08] MEDS: ACETAMINOPHEN TAB 650MG DOSE (2X325MG) PO PRN (04:24)
[2017-03-08 05:19] LABS: MEAN CORPUSCULAR HEMOGLOBIN 32.9 pg (27.0-33.0); MEAN CORPUSCULAR HGB CONC 32.9 g/dl (32.0-36.5); RED CELL DISTRIBUTION WIDTH 15.4 % (11.5-14.5); WHITE BLOOD COUNT 3.9 10^3/uL (4.0-10.0)
[2017-03-08 05:21] LABS: PLATELET COUNT, AUTOMATED 37 10^3/uL (150-450)
[2017-03-08 05:36] LABS: ANION GAP 7 MEQ/L (8-16); BLOOD UREA NITROGEN 20 MG/DL (7-18); CALCIUM LEVEL 8.4 MG/DL (8.8-10.2); CARBON DIOXIDE LEVEL 34 MEQ/L (21-32); CHLORIDE LEVEL 100 MEQ/L (98-107); GLOMERULAR FILTRATION RATE > 60.0 (>42); GLUCOSE, FASTING 99 MG/DL (83-110); POTASSIUM SERUM 3.7 MEQ/L (3.5-5.1); SODIUM LEVEL 141 MEQ/L (136-145)
[2017-03-08] MEDS: SLF 3 ML SYR IV SCH (06:00)
[2017-03-08 08:00] VITALS: BP 117/56
[2017-03-08 08:24] LABS: MAGNESIUM LEVEL 1.9 MG/DL (1.8-2.4)
[2017-03-08] MEDS: aMILoride 5 MG TAB PO SCH (09:22)
[2017-03-08] MEDS: predniSONE 5 MG TAB PO SCH (09:23)
[2017-03-08] MEDS: CALCITRIOL 0.25 MCG CAP (S0169) PO SCH (09:23)
[2017-03-08] MEDS: TORSEMIDE 20 MG TAB PO SCH (09:23)
[2017-03-08] MEDS: PANTOPRAZOLE 40MG TAB (PROTONIX) PO SCH (09:23)
[2017-03-08] MEDS: TACROLIMUS 0.5 MG CAP PO SCH (09:23)
[2017-03-08] MEDS: MAGNESIUM OXIDE 400 MG TAB (MAG-OX) PO SCH (09:24)
--- NOTE | 2017-03-08 10:02 | IPN ---
DATE: 03/07/2017 Mr. Das continues to complain of loose stools, is perhaps improving somewhat today from yesterday. No chest pain. No shortness of breath. He has been walking and still requires oxygen with ambulation. Temperature 97.6, pulse 69, respiratory rate 18, blood pressure 116/56, 96% in room air. Input and output notable for negative fluid balance of -1290, four bowel movements yesterday. Body mass index is 27.7. He is awake, appropriately interactive, pleasantly conversant. Breathing is symmetrical at rest. He can speak in complete sentences. Abdomen soft, doughy, hyperactive bowel sounds. Mild diffuse tenderness without rebound or guarding. White cell count 6.8, hemoglobin 9.9, platelets 39. BUN 18, creatinine 0.87, magnesium 1.6. ASSESSMENT: This is a 71-year-old being treated for healthcare associated pneumonia related to his stay, now with C difficile colitis and ongoing hypoxia. PLAN: 1. Pneumonia: This appears to be resolved. He does have increasing shortness of breath with activity and requiring oxygen for activity. He may need to be discharged on oxygen. I did discuss the case yesterday with Dr. Self. Torsemide dose was increased. 2. The patient has C difficile colitis and is on oral vancomycin. He is tolerating this well. Rate of stooling has decreased. 3. The patient endstage renal disease status post transplant for polycystic kidney disease and is immunocompromised being followed by Dr. Self. 4. The patient has congestive heart failure with preserved left ventricular ejection fraction. 5. The patient has secondary hyperthyroidism. 6. The patient has a history of polio and restrictive lung disease. 7. The patient has esophageal achalasia requiring intermittent dilatation. 8. The patient has appropriate deep venous thrombosis (DVT) prophylaxis.
--- NOTE | 2017-03-08 10:46 | IPN ---
DATE: 03/07/2017 SUBJECTIVE: The patient was seen and examined at the bedside today morning. The patient reports that his diarrhea is improving after he was started on vancomycin. He is otherwise hemodynamically stable. He reports that his shortness of breath is also significantly better and he is able to walk around without any shortness of breath. REVIEW OF SYSTEMS: The patient denies any fever, chills, rigors. He denies any chest pain. He reports no worsening of his shortness of breath. He reports his diarrhea is also improving and his leg edema is also getting better. The rest of review of systems is negative. OBJECTIVE: VITAL SIGNS: Temperature is 97.6 degrees Fahrenheit, blood pressure is 116/56, pulse is 55, respiratory rate of 18, saturating 96% on room air. INTAKE AND OUTPUT: Urine output was 1.7 liters yesterday and 960 mL so far today since overnight. The weight in the bed scale is 75.4 kg. PHYSICAL EXAMINATION: GENERAL: The patient is awake, alert, oriented times three, lying in bed, in no apparent distress. HEAD AND NECK EXAMINATION: Extraocular muscles intact. Pupils equally round and reactive to light. Mucous membranes are moist. Neck is supple. There is no jugular venous distention (JVD). CARDIOVASCULAR: S1, S2, regular rate. No murmur, rub, and gallop. The patient has 2+ edema of the bilateral lower extremities. RESPIRATORY: Decreased breath sounds on the left base and left middle lung zone. The patient has scoliosis, which is convex on the right. He has mildly decreased breath sounds on the right. Otherwise, no rales or rhonchi. ABDOMEN: Soft. Positive bowel sounds. The patient has hepatomegaly. He has right lower quadrant allograft, which is nontender and there is no bruit. MUSCULOSKELETAL: No clubbing or cyanosis. He has 2+ edema on the bilateral lower extremities. CENTRAL NERVOUS SYSTEM (SPECIAL PROCEDURE TECH): No focal neurological deficit. Power is 5/5 in all extremities. PSYCHIATRIC: Normal mood and affect. LABORATORY REVIEW: CBC showed a WBC of 6.8, hemoglobin 9.9, platelets are 39. BMP showed sodium 140, potassium 3.7, chloride 98, bicarbonate 36, BUN 18, creatinine is 0.87, magnesium 1.6. CURRENT INPATIENT MEDICATIONS: The patient's inpatient medications were all reviewed by me. His Diflucan has been stopped. He was given a dose of magnesium citrate 1 gram IV todcay. He was started on vancomycin 125 mg by mouth every 6 hours yesterday and he continues to be on torsemide 20 mg by mouth by mouth daily. ASSESSMENT: A 71-year-old male with past medical history of polycystic kidney disease and polycystic liver disease, status post venetie nephrectomy and left hepatic lobectomy, status post right lower quadrant renal allograft, history of polio infection in the past, restrictive lung disease, and history of left lower lobectomy, admitted this time because of hypoxia, hypervolemia, and neutropenia. PLAN: 1. Presence of renal allograft. The patient's renal function is stable. He continues to be on Prograf and prednisone. Azathioprine is on hold because of infection and neutropenia. 2. Hypoxia. It is secondary to multiple etiologies, including pneumonia, history of left lower lobectomy, restrictive lung disease, and hypervolemia. The patient's shortness of breath is significantly better. Intravenous antibiotics have been stopped. Continue current dose of torsemide. The patient is diuresing well. 3. Neutropenia. It is secondary to immunosuppression, especially azathioprine. Azathioprine is on hold. The patient was given a dose of Neupogen two days ago. White cell count is within the acceptable range now. 4. Clostridium (C) difficile colitis. The patient was found to have C. difficile yesterday. He has been started on oral vancomycin. Diarrhea is improving. Continue current dose of vancomycin. 5. Metabolic alkalosis. It is secondary to diuresis. Bicarbonate level is acceptable. He also has a history of chronic restrictive lung disease. Continue current dose of amiloride to prevent further alkalosis secondary to diuresis.
[2017-03-08] MEDS ORDERED: AMIL5TA PO (10:50)
[2017-03-08] MEDS ORDERED: VANC125C2 PO (10:50)
[2017-03-08] MEDS ORDERED: DEMA20TA6 PO (10:50)
--- NOTE | 2017-03-08 12:27 | IPNPDOC ---
Date Seen The patient was seen on 03/08/17. Progress Note SUBJECTIVE: The patient was seen and examined at the bedside today morning. He is sitting on the edge of bed. Has Clostridium difficile infection. Does not offer any acute complaints at this time. REVIEW OF SYSTEMS: The patient denies any fever, chills, rigors. He denies any chest pain. Reports improvement in his shortness of breath. He reports his diarrhea is improving and his leg edema is also getting better. The rest of review of systems is negative. PHYSICAL EXAMINATION: GENERAL: The patient is awake, alert, oriented times three, sitting on the edge of the bed, in no apparent distress. HEAD AND NECK EXAMINATION: Extraocular muscles intact. Pupils equally round and reactive to light. Mucous membranes are moist. Neck is supple. There is no jugular venous distention (JVD). CARDIOVASCULAR: S1, S2, regular rate. No murmur, rub, and gallop. The patient has +1 edema of the bilateral lower extremities. RESPIRATORY: Decreased breath sounds on the left base and left middle lung zone. The patient has scoliosis, which is convex on the right. Healed midline incision. He has mildly decreased breath sounds on the right. Otherwise, no rales or rhonchi. ABDOMEN: Soft. Positive bowel sounds. The patient has hepatomegaly. He has right lower quadrant allograft, which is nontender and there is no bruit. MUSCULOSKELETAL: No clubbing or cyanosis. He has +1 edema on the bilateral lower extremities. 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 Power is 5/5 in all extremities. PSYCHIATRIC: Normal mood and affect. LABORATORY REVIEW: See below. CURRENT INPATIENT MEDICATIONS: The patient's inpatient medications were all reviewed by myself and my attending. Remains on vancomycin 125 mg by mouth every 6 hours yesterday and he continues to be on torsemide 20 mg by mouth by mouth daily. ASSESSMENT: A 71-year-old male with past medical history of polycystic kidney disease and polycystic liver disease, status post inupiat nephrectomy and left hepatic lobectomy, status post right lower quadrant renal allograft, history of polio infection in the past, restrictive lung disease, and history of left lower lobectomy, admitted this time because of hypoxia, hypervolemia, and neutropenia. PLAN: 1. Presence of renal allograft: The patient's renal function is stable with creatinine of 1. He continues to be on Prograf and prednisone. Continue to hold Azathioprine due to infection and neutropenia. 2. Hypoxia: Saturating at 98% on room air. Vastly improved. Shortness of breath improved. Continue with Torsemide 20mg orally daily. I/Os over the last 24 hours was 1510mL. 3. Neutropenia: It is secondary to immunosuppression, especially azathioprine. Azathioprine is on hold. Was given Neupogen on 03/05/17. White count improved, but is now back down to 3.9. Will hold off giving more Neupogen at this time. 4. Clostridium (C) difficile colitis: GI panel positive for Clostridium difficile. Remains on oral Vancomycin. Diarrhea is improving. 5. Metabolic alkalosis. It is secondary to diuresis. Bicarbonate level is 34. He also has a history of chronic restrictive lung disease. Continue current dose of amiloride to prevent further alkalosis secondary to diuresis. DISPOSITION: Continue with Torsemide daily. VS, I&O, 24H, Fishbone Vital Signs/I&O Vital Signs Date Time Temp Pulse Resp B/P (MAP) Pulse Ox O2 Delivery O2 Flow Rate FiO2 03/08/17 08:00 Room Air 03/08/17 08:00 97.7 54 18 117/56 (76) 98 03/04/17 09:15 2.0 I&O- Last 24 Hours up to 6 AM 03/09/17 05:59 Output Total 200 ml Balance -200 ml Laboratory Data 24H LABS Laboratory Tests 2 03/08/17 05:02: Nucleated Red Blood Cells % (auto) 0.0, Anion Gap 7L, Glomerular Filtration Rate > 60.0, Blood Urea Nitrogen 20H, Creatinine 1.00, Sodium Level 141, Potassium Level 3.7, Chloride Level 100, Carbon Dioxide Level 34H, Calcium Level 8.4L, Magnesium Level 1.9 CBC/BMP Laboratory Tests 03/08/17 05:02 Red Blood Count 2.89 L, Mean Corpuscular Volume 100.0 H, Mean Corpuscular Hemoglobin 32.9, Mean Corpuscular Hemoglobin Concent 32.9, Red Cell Distribution Width 15.4 H, Calcium Level 8.4 L Microbiology Microbiology 02/27/17 Blood Culture - Final, Complete NO GROWTH AFTER 5 DAYS 02/27/17 Blood Culture - Final, Complete NO GROWTH AFTER 5 DAYS 03/06/17 Clostridium difficile (PCR) - Final, Complete OOSTHUIZEN,JUAN JOSE DO Mar 08, 2017 12:26
--- NOTE | 2017-03-08 17:24 | DSES ---
DATE OF ADMISSION: 02/25/2017 DATE OF DISCHARGE: 03/08/2017 Specialists involved during his stay include Dr. Hillary Smallwood and Dr. Ricardo Gudino. There were no procedures performed during his stay. There were no complications of his stay. DISCHARGE DIAGNOSES: 1. Healthcare-associated pneumonia. 2. Bacteremia with extended-spectrum beta-lactamases (ESBL). 3. End-stage renal disease from polycystic kidney disease status post renal transplant. 4. 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 5. Pancytopenia. 6. Thrombocytopenia. 7. Coronary artery disease. 8. Congestive heart failure with preserved left ventricular ejection fraction. 9. History of testicular cancer. 10. Benign prostatic hypertrophy. 11. Secondary hyperparathyroidism. 12. History of post-polio restrictive lung disease. 13. Esophageal achalasia. The following is a summary of his hospitalization: This is a 71-year-old who presented with shortness of breath, recently hospitalized for bacteremia from unknown source, was found to have healthcare-associated pneumonia, was admitted to the hospitalist service with nephrology following. He had marked improvement clinically, eventually needed some diuresis, this was managed by nephrology. Repeat blood cultures done multiply were negative. He unfortunately did develop Clostridium (C) difficile during his stay which was NAP1 presumptive positive and was treated with oral vancomycin which he tolerated quite well. During the course of his stay we attempted transfer to his transplant center at [facility]. Unfortunately, during the entire course of his stay there was no bed available. Should the patient develop bacteremia or illness again, I would recommend a direct transfer from the emergency department to ensure that he has close followup with his transplant team at [facility]. On the day of discharge, he is feeling well and he is ambulating without difficulty. He had required oxygen with ambulation which has resolved. Temperature is 97.7, pulse 64, respiratory rate 18,blood pressure 117/56, 98% on room air. He is awake, appropriately interactive, pleasantly conversant. Breathing is symmetrical. I:E ratio is 1:3, rested, speaking in complete sentences, no accessory muscle use. No wheezes, rales, or rhonchi. Heart is distant sounding, normal S1, S2. Abdomen is soft, doughy, nontender. BUN 20, creatinine is 1.0, hemoglobin is 9.5, white cell count is 3.9, and platelets are 37, which is the range they have been in for his entire stay. Discharge instructions include the following: Followup with Dr. Smallwood on 03/16/2017 at 8:40 a.m. Diet and activity as tolerated. Medications include: - amiloride 5 mg by mouth daily - torsemide 20 mg by mouth daily - vancomycin 125 mg by mouth every 6 hours, #48 tablets - Tylenol 650 mg every 4 hours as needed for pain - albuterol HFA two puffs inhaled four times a day as needed for shortness of breath - atorvastatin 10 mg by mouth daily - Imuran 50 mg by mouth daily at bedtime - calcitriol 0.5 mcg by mouth five times a week - calcium carbonate 1000 mg by mouth daily - Colace 100 mg by mouth daily as needed for constipation - folic acid 1 mg by mouth daily - loratadine 10 mg by mouth daily - magnesium oxide 400 mg by mouth daily - sublingual nitroglycerin as needed - ondansetron 4 mg by mouth every 4 hours as needed for nausea - Protonix 40 mg by mouth daily - prednisone 5 mg by mouth daily - tacrolimus 0.5 mg by mouth twice a day - Flomax 0.4 mg by mouth daily at bedtime
== END 2017-03-08 12:18 | disposition home or self-care (01) | DRG 193 ==
LOC: M ED 22:46 → EEVIPCON 02-25 03:59 → M ED INP 02-25 03:59 → M PCU 02-25 16:30
PROVIDERS: ADMIT Internal Medicine; ATTEND Internal Medicine
DX: J18.9 Pneumonia, unspecified organism (principal); I50.33 Acute on chronic diastolic (congestive) heart failure; Z94.0 Kidney transplant status; Q44.6 Cystic disease of liver; D61.818 Other pancytopenia; J90 Pleural effusion, not elsewhere classified; E87.2 Acidosis; N17.9 Acute kidney failure, unspecified; N25.81 Secondary hyperparathyroidism of renal origin; A04.72 Enterocolitis due to Clostridium difficile, not specified as recurrent; E87.3 Alkalosis; I25.10 Atherosclerotic heart disease of native coronary artery without angina pectoris; R09.02 Hypoxemia; E78.00 Pure hypercholesterolemia, unspecified; J98.4 Other disorders of lung; Y95 Nosocomial condition; N40.0 Benign prostatic hyperplasia without lower urinary tract symptoms; K21.9 Gastro-esophageal reflux disease without esophagitis; M41.9 Scoliosis, unspecified; Z79.52 Long term (current) use of systemic steroids; Z86.12 Personal history of poliomyelitis; Z79.899 Other long term (current) drug therapy; Z85.828 Personal history of other malignant neoplasm of skin; Z88.0 Allergy status to penicillin; Z85.47 Personal history of malignant neoplasm of testis; Z88.8 Allergy status to other drugs, medicaments and biological substances; K22.0 Achalasia of cardia; Z95.1 Presence of aortocoronary bypass graft; Z90.49 Acquired absence of other specified parts of digestive tract; Z90.79 Acquired absence of other genital organ(s)

== ENCOUNTER 2017-04-01 03:56 | Emergency (ER) | payer MEDICARE ==
[2017-04-01 06:30] LABS: EOS % 1.2 % (0.0-3.0); HEMOGLOBIN 11.2 g/dl (14.0-18.0); IMMATURE GRANULOCYTE # 0.1 10^3/uL (0-0); IMMATURE GRANULOCYTE % 3.5 % (0-0); LYMPH % 9.2 % (24.0-44.0); MEAN CORPUSCULAR HEMOGLOBIN 33.3 pg (27.0-33.0); MEAN CORPUSCULAR HGB CONC 32.9 g/dl (32.0-36.5); MEAN CORPUSCULAR VOLUME 101.2 fl (80.0-96.0); MONO % 1.7 % (0.0-5.0); NEUTROPHILS # 1.5 10^3/uL (1.8-7.7); NEUTROPHILS % 84.4 % (36.0-66.0); RED BLOOD COUNT 3.36 10^6/uL (4.30-6.10); RED CELL DISTRIBUTION WIDTH 15.4 % (11.5-14.5)
[2017-04-01] MEDS ORDERED: IMIPENEM/CILASTATIN 250 MG in D5W MINI-BAG PLUS 100 ML IV (06:30)
[2017-04-01 06:31] LABS: WHITE BLOOD COUNT 1.7 10^3/uL (4.0-10.0)
[2017-04-01 06:38] LABS: LYMPH # 0.2 10^3/uL (1.5-4.5); PLATELET COUNT, AUTOMATED 25 10^3/uL (150-450); POS COUNT POS FLAG; POSITIVE DIFF POS FLAG
[2017-04-01 06:39] LABS: IMMATURE PLATELET FRACTION % 7.6 % (0.0-10.9); PLATELET F 23
[2017-04-01] MEDS: ACETAMINOPHEN 325 MG TAB PO (06:40)
[2017-04-01] MEDS: VANCOMYCIN HCL 750 MG, VIAL MATE ADAPTER 1 EACH in D5W 250 ML IV (06:41)
[2017-04-01 06:47] LABS: ANION GAP 9 MEQ/L (8-16); BLOOD UREA NITROGEN 25 MG/DL (7-18); CALCIUM LEVEL 8.6 MG/DL (8.8-10.2); CARBON DIOXIDE LEVEL 29 MEQ/L (21-32); CHLORIDE LEVEL 102 MEQ/L (98-107); CREATININE FOR GFR 1.33 MG/DL (0.70-1.30); GLOMERULAR FILTRATION RATE 56.1 (>42); GLUCOSE, FASTING 116 MG/DL (83-110); POTASSIUM SERUM 4.1 MEQ/L (3.5-5.1); SODIUM LEVEL 140 MEQ/L (136-145)
[2017-04-01 06:49] LABS: LACTIC ACID SEPSIS PROTOCOL 3.5 MMOL/L (0.4-2.0)
[2017-04-01 07:59] LABS: APPEARANCE, URINE HAZY (CLEAR); BACTERIA, URINE AUTO NEGATIVE (NEGATIVE); BILIRUBIN, URINE AUTO NEGATIVE (NEGATIVE); BLOOD, URINE BLOOD 1+ (NEGATIVE); COLOR, URINE YELLOW (YELLOW); GLUCOSE, URINE (UA) AUTO NEGATIVE (NEGATIVE); KETONE, URINE AUTO NEGATIVE (NEGATIVE); LEUKOCYTE ESTERASE, URINE AUTO NEGATIVE (NEGATIVE); MUCUS, URINE SMALL (NEGATIVE); NITRITE, URINE AUTO NEGATIVE (NEGATIVE); PROTEIN, URINE AUTO NEGATIVE (NEGATIVE); RBC, URINE AUTO 4 /HPF (0-3); SPECIFIC GRAVITY URINE AUTO 1.013 (1.002-1.035); SQUAMOUS EPITHELIAL CELL UR AU 0 /HPF (0-6); UROBILINOGEN, URINE AUTO 0.2 mg/dL (0.0-2.0); WBC, URINE AUTO 0 /HPF (0-3)
[2017-04-01 08:35] LABS: ALBUMIN 3.3 GM/DL (3.2-5.2); ALBUMIN/GLOBULIN RATIO 1.38 (1.00-1.93); ALKALINE PHOSPHATASE 125 U/L (45-117); ALT/SGPT 16 U/L (12-78); AST/SGOT 17 U/L (7-37); BILIRUBIN,TOTAL 1.8 MG/DL (0.2-1.0); CPK CREATINE PHOSPHOKINASE 21 U/L (39-308); MAGNESIUM LEVEL 1.7 MG/DL (1.8-2.4); MB/CK RELATIVE INDEX 4.76 (< OR =4); TOTAL PROTEIN 5.7 GM/DL (6.4-8.2); TROPONIN I 0.04 NG/ML (< 0.10)
[2017-04-01] MEDS: NS 500 ML IV (09:00)
[2017-04-01 09:34] LABS: MYOGLOBIN 66 NG/ML (16-116)
[2017-04-01] MEDS: MATE ADAPTER IV (10:20)
[2017-04-01] MEDS: CILASTATIN IV (10:20)
[2017-04-01] MEDS: IMIPENEM IV (10:20)
[2017-04-01] MEDS: D5W IV (10:20)
== END 2017-04-01 11:31 | disposition short-term general hospital (02) ==
LOC: M ED 03:56
DX: J90 Pleural effusion, not elsewhere classified (principal); D61.818 Other pancytopenia; I11.0 Hypertensive heart disease with heart failure; J44.9 Chronic obstructive pulmonary disease, unspecified; I50.9 Heart failure, unspecified; N40.0 Benign prostatic hyperplasia without lower urinary tract symptoms; Z94.0 Kidney transplant status; Z85.47 Personal history of malignant neoplasm of testis; Z79.899 Other long term (current) drug therapy; Z88.0 Allergy status to penicillin; Z88.8 Allergy status to other drugs, medicaments and biological substances; Z87.891 Personal history of nicotine dependence
CPT/HCPCS: J3370

== ENCOUNTER → 2017-04-15 | Outpatient (REF) | payer MEDICARE ==
[2017-04-15 14:40] LABS: ALBUMIN 3.2 GM/DL (3.2-5.2); ALBUMIN/GLOBULIN RATIO 1.39 (1.00-1.93); ALKALINE PHOSPHATASE 96 U/L (45-117); ALT/SGPT 13 U/L (12-78); AST/SGOT 21 U/L (7-37); BILIRUBIN,DIRECT 0.4 MG/DL (0.0-0.2); BILIRUBIN,TOTAL 1.4 MG/DL (0.2-1.0); TOTAL PROTEIN 5.5 GM/DL (6.4-8.2)
[2017-04-17 08:06] LABS: FK 506 (TACROLIMUS) LABCORP 3.5 ng/mL (2.0-20.0)
== END ==
LOC: M LAB REF 13:43
DX: Z94.0 Kidney transplant status (principal)
CPT/HCPCS: 80076

== ENCOUNTER 2017-04-30 08:35 | Inpatient (IN) | payer MEDICARE ==
[2017-04-30 10:17] LABS: BASO % 0.7 % (0.0-1.0); EOS % 1.4 % (0.0-3.0); HEMOGLOBIN 10.7 g/dl (14.0-18.0); IMMATURE GRANULOCYTE % 2.1 % (0-0); LYMPH % 16.7 % (24.0-44.0); MEAN CORPUSCULAR HEMOGLOBIN 32.4 pg (27.0-33.0); MEAN CORPUSCULAR HGB CONC 33.4 g/dl (32.0-36.5); MONO # 0.2 10^3/uL (0.0-0.8); MONO % 16.7 % (0.0-5.0); NEUTROPHILS % 62.4 % (36.0-66.0); RED CELL DISTRIBUTION WIDTH 13.3 % (11.5-14.5)
[2017-04-30] MEDS: NS 500 ML IV (10:20)
[2017-04-30 10:28] LABS: INR 1.11; PROTHROMBIN TIME 14.5 SECONDS (12.4-14.5)
[2017-04-30 10:38] LABS: ALBUMIN 3.1 GM/DL (3.2-5.2); ALBUMIN/GLOBULIN RATIO 1.11 (1.00-1.93); ALKALINE PHOSPHATASE 149 U/L (45-117); ALT/SGPT 14 U/L (12-78); ANION GAP 8 MEQ/L (8-16); AST/SGOT 12 U/L (7-37); BILIRUBIN,DIRECT 0.5 MG/DL (0.0-0.2); BILIRUBIN,TOTAL 1.6 MG/DL (0.2-1.0); BLOOD UREA NITROGEN 35 MG/DL (7-18); CALCIUM LEVEL 8.7 MG/DL (8.8-10.2); CARBON DIOXIDE LEVEL 27 MEQ/L (21-32); CHLORIDE LEVEL 103 MEQ/L (98-107); CREATININE FOR GFR 1.26 MG/DL (0.70-1.30); GLOMERULAR FILTRATION RATE 59.6 (>42); GLUCOSE, FASTING 105 MG/DL (70-100); LIPASE 114 U/L (73-393); POTASSIUM SERUM 3.5 MEQ/L (3.5-5.1); SODIUM LEVEL 138 MEQ/L (136-145); TOTAL PROTEIN 5.9 GM/DL (6.4-8.2)
[2017-04-30 10:39] LABS: LACTIC ACID SEPSIS PROTOCOL 1.9 MMOL/L (0.4-2.0)
[2017-04-30 11:07] LABS: WHITE BLOOD COUNT 1.4 10^3/uL (4.0-10.0)
[2017-04-30 11:08] LABS: LYMPH # 0.2 10^3/uL (1.5-4.5); NEUTROPHILS # 0.9 10^3/uL (1.8-7.7); PLATELET COUNT, AUTOMATED 42 10^3/uL (150-450); POS COUNT POS FLAG; POSITIVE DIFF POS FLAG
[2017-04-30 11:09] LABS: IMMATURE PLATELET FRACTION % 4.2 % (0.0-10.9); PLATELET F 38
[2017-04-30] MEDS: NS 1,000 ML IV ×2 (11:16→17:02)
[2017-04-30] MEDS ORDERED: ONDANSETRON 4MG/2ML VIAL (J2405) IV (13:45)
[2017-04-30] MEDS: VANCOMYCIN ORAL SOL 250MG/5ML ORAL SYRINGE PO ×2 (14:30→17:51)
[2017-04-30] MEDS: FILGRASTIM 300 MCG/0.5 ML SYRINGE (J1442 PER 1MCG) SC (17:51)
[2017-04-30] MEDS: TACROLIMUS 0.5 MG CAP PO (21:20)
[2017-04-30] MEDS: TAMSULOSIN 0.4 MG CAP PO (21:20)
[2017-04-30] MEDS: ATORVASTATIN 10 MG TAB PO (21:20)
[2017-04-30] MEDS: FIDAXOMICIN 200 MG TAB (DIFICID) PO (21:20)
[2017-05-01] MEDS: ACETAMINOPHEN TAB 650MG DOSE (2X325MG) PO ×3 (01:52→23:09)
[2017-05-01] MEDS: NS 1,000 ML IV (05:06)
[2017-05-01 07:05] LABS: HEMATOCRIT 26.9 % (42.0-52.0); MEAN CORPUSCULAR HGB CONC 33.5 g/dl (32.0-36.5); MEAN CORPUSCULAR VOLUME 98.5 fl (80.0-96.0); RED BLOOD COUNT 2.73 10^6/uL (4.30-6.10); RED CELL DISTRIBUTION WIDTH 13.7 % (11.5-14.5)
[2017-05-01 07:09] LABS: PLATELET COUNT, AUTOMATED 31 10^3/uL (150-450)
[2017-05-01 07:19] LABS: ALBUMIN 2.5 GM/DL (3.2-5.2); ALBUMIN/GLOBULIN RATIO 1.09 (1.00-1.93); ALKALINE PHOSPHATASE 106 U/L (45-117); ALT/SGPT 11 U/L (12-78); ANION GAP 8 MEQ/L (8-16); AST/SGOT 15 U/L (7-37); BILIRUBIN,DIRECT 0.3 MG/DL (0.0-0.2); BILIRUBIN,TOTAL 1.3 MG/DL (0.2-1.0); BLOOD UREA NITROGEN 30 MG/DL (7-18); CALCIUM LEVEL 8.4 MG/DL (8.8-10.2); CARBON DIOXIDE LEVEL 25 MEQ/L (21-32); CHLORIDE LEVEL 109 MEQ/L (98-107); CREATININE FOR GFR 1.13 MG/DL (0.70-1.30); GLOMERULAR FILTRATION RATE > 60.0 (>42); GLUCOSE, FASTING 104 MG/DL (70-100); MAGNESIUM LEVEL 1.5 MG/DL (1.8-2.4); PHOSPHORUS LEVEL 2.9 MG/DL (2.5-4.9); POTASSIUM SERUM 3.6 MEQ/L (3.5-5.1); SODIUM LEVEL 142 MEQ/L (136-145); TOTAL PROTEIN 4.8 GM/DL (6.4-8.2)
[2017-05-01] MEDS: predniSONE 5 MG TAB PO (08:43)
[2017-05-01] MEDS: TACROLIMUS 0.5 MG CAP PO ×2 (08:43→22:11)
[2017-05-01] MEDS: FIDAXOMICIN 200 MG TAB (DIFICID) PO ×2 (08:43→22:11)
[2017-05-01] MEDS: FOLIC ACID 1 MG TAB PO (08:43)
[2017-05-01] MEDS: PANTOPRAZOLE 40MG TAB (PROTONIX) PO (08:43)
[2017-05-01] MEDS ORDERED: CALCIUM CARBONATE 500 MG CHEW U/D PO (09:00)
[2017-05-01] MEDS: MAG SULF 1GM/100ML (MAG RUN) 1 GM in APPROPRIATE DILUENT 1 EA IV ×2 (10:10→11:10)
[2017-05-01] MEDS: FILGRASTIM 300 MCG/0.5 ML SYRINGE (J1442 PER 1MCG) SC (10:10)
[2017-05-01] MEDS: GASTROGRAFIN SOLUTION 30ML PO ×2 (10:28→11:08)
[2017-05-01] MEDS ORDERED: ISOVUE-370 76% 100ML VIAL (Q9967) As Ordered (12:00)
[2017-05-01 12:11] LABS: HEMATOCRIT 30.2 % (42.0-52.0)
[2017-05-01] MEDS: KCL 20MEQ in NS 1000ML 1,000 ML IV ×2 (12:32→22:10)
[2017-05-01] MEDS: NS 500 ML IV (17:15)
[2017-05-01] MEDS: ATORVASTATIN 10 MG TAB PO (22:11)
[2017-05-01] MEDS: TAMSULOSIN 0.4 MG CAP PO (22:11)
[2017-05-02 06:27] LABS: HEMATOCRIT 29.6 % (42.0-52.0); HEMOGLOBIN 9.8 g/dl (14.0-18.0); MEAN CORPUSCULAR HGB CONC 33.1 g/dl (32.0-36.5); MEAN CORPUSCULAR VOLUME 99.7 fl (80.0-96.0); RED BLOOD COUNT 2.97 10^6/uL (4.30-6.10); RED CELL DISTRIBUTION WIDTH 13.8 % (11.5-14.5); WHITE BLOOD COUNT 5.6 10^3/uL (4.0-10.0)
[2017-05-02 06:30] LABS: IMMATURE PLATELET FRACTION % 5.9 % (0.0-10.9); PLATELET COUNT, AUTOMATED 30 10^3/uL (150-450)
[2017-05-02 06:39] LABS: ALBUMIN 2.8 GM/DL (3.2-5.2); ANION GAP 6 MEQ/L (8-16); BLOOD UREA NITROGEN 19 MG/DL (7-18); CALCIUM LEVEL 8.5 MG/DL (8.8-10.2); CARBON DIOXIDE LEVEL 23 MEQ/L (21-32); CHLORIDE LEVEL 114 MEQ/L (98-107); CREATININE FOR GFR 0.94 MG/DL (0.70-1.30); GLOMERULAR FILTRATION RATE > 60.0 (>42); GLUCOSE, FASTING 102 MG/DL (70-100); POTASSIUM SERUM 4.4 MEQ/L (3.5-5.1); SODIUM LEVEL 143 MEQ/L (136-145)
[2017-05-02] MEDS: predniSONE 5 MG TAB PO (08:37)
[2017-05-02] MEDS: FIDAXOMICIN 200 MG TAB (DIFICID) PO ×2 (08:37→21:47)
[2017-05-02] MEDS: PANTOPRAZOLE 40MG TAB (PROTONIX) PO (08:37)
[2017-05-02] MEDS: TACROLIMUS 0.5 MG CAP PO ×2 (08:37→21:47)
[2017-05-02] MEDS: FOLIC ACID 1 MG TAB PO (08:37)
[2017-05-02] MEDS: CALCIUM ANTACID PO (08:38)
[2017-05-02] MEDS: FILGRASTIM 300 MCG/0.5 ML SYRINGE (J1442 PER 1MCG) SC (08:38)
[2017-05-02] MEDS: KCL 20MEQ in NS 1000ML 1,000 ML IV ×2 (11:40→21:46)
[2017-05-02] MEDS: ACETAMINOPHEN TAB 650MG DOSE (2X325MG) PO (18:24)
[2017-05-02] MEDS: TAMSULOSIN 0.4 MG CAP PO (21:46)
[2017-05-02] MEDS: ATORVASTATIN 10 MG TAB PO (21:47)
[2017-05-02] MEDS: ANUSOL HC CREAM 30GM TOP (21:47)
[2017-05-03 06:43] LABS: HEMATOCRIT 27.3 % (42.0-52.0); MEAN CORPUSCULAR HEMOGLOBIN 33.3 pg (27.0-33.0); MEAN CORPUSCULAR VOLUME 101.1 fl (80.0-96.0); RED CELL DISTRIBUTION WIDTH 14.2 % (11.5-14.5)
[2017-05-03 06:51] LABS: ALBUMIN 2.6 GM/DL (3.2-5.2); ANION GAP 6 MEQ/L (8-16); BLOOD UREA NITROGEN 16 MG/DL (7-18); CALCIUM LEVEL 8.2 MG/DL (8.8-10.2); CARBON DIOXIDE LEVEL 22 MEQ/L (21-32); CHLORIDE LEVEL 115 MEQ/L (98-107); CREATININE FOR GFR 0.82 MG/DL (0.70-1.30); GLOMERULAR FILTRATION RATE > 60.0 (>42); GLUCOSE, FASTING 87 MG/DL (70-100); MAGNESIUM LEVEL 1.8 MG/DL (1.8-2.4); POTASSIUM SERUM 4.9 MEQ/L (3.5-5.1); SODIUM LEVEL 143 MEQ/L (136-145)
[2017-05-03 06:53] LABS: IMMATURE PLATELET FRACTION % 5.5 % (0.0-10.9); PLATELET COUNT, AUTOMATED 30 10^3/uL (150-450)
[2017-05-03 07:07] LABS: PHOSPHORUS LEVEL 1.5 MG/DL (2.5-4.9)
[2017-05-03] MEDS ORDERED: K-PHOS ORIGINAL (POT.ACID PHOSPHATE) 500MG TAB PO (09:00)
[2017-05-03] MEDS: K-PHOS ORIGINAL (POT.ACID PHOSPHATE) 500MG TAB PO (09:40)
[2017-05-03] MEDS: TACROLIMUS 0.5 MG CAP PO ×2 (09:40→21:28)
[2017-05-03] MEDS: FIDAXOMICIN 200 MG TAB (DIFICID) PO ×2 (09:40→21:29)
[2017-05-03] MEDS: predniSONE 5 MG TAB PO (09:41)
[2017-05-03] MEDS: PANTOPRAZOLE 40MG TAB (PROTONIX) PO (09:41)
[2017-05-03] MEDS: FOLIC ACID 1 MG TAB PO (09:41)
[2017-05-03] MEDS: CALCIUM ANTACID PO (09:41)
[2017-05-03] MEDS: ANUSOL HC CREAM 30GM TOP ×2 (09:42→21:29)
[2017-05-03] MEDS: ATORVASTATIN 10 MG TAB PO (21:28)
[2017-05-03] MEDS: TAMSULOSIN 0.4 MG CAP PO (21:28)
[2017-05-03] MEDS: ACETAMINOPHEN TAB 650MG DOSE (2X325MG) PO (21:29)
[2017-05-04 05:49] LABS: HEMATOCRIT 26.8 % (42.0-52.0); HEMOGLOBIN 8.7 g/dl (14.0-18.0); MEAN CORPUSCULAR HEMOGLOBIN 32.6 pg (27.0-33.0); MEAN CORPUSCULAR HGB CONC 32.5 g/dl (32.0-36.5); MEAN CORPUSCULAR VOLUME 100.4 fl (80.0-96.0); RED BLOOD COUNT 2.67 10^6/uL (4.30-6.10); WHITE BLOOD COUNT 4.9 10^3/uL (4.0-10.0)
[2017-05-04 05:52] LABS: PLATELET COUNT, AUTOMATED 29 10^3/uL (150-450); POS COUNT POS FLAG
[2017-05-04 06:10] LABS: ALBUMIN 2.7 GM/DL (3.2-5.2); ANION GAP 6 MEQ/L (8-16); BLOOD UREA NITROGEN 15 MG/DL (7-18); CALCIUM LEVEL 8.6 MG/DL (8.8-10.2); CARBON DIOXIDE LEVEL 25 MEQ/L (21-32); CHLORIDE LEVEL 113 MEQ/L (98-107); CREATININE FOR GFR 0.95 MG/DL (0.70-1.30); GLOMERULAR FILTRATION RATE > 60.0 (>42); GLUCOSE, FASTING 94 MG/DL (70-100); MAGNESIUM LEVEL 1.8 MG/DL (1.8-2.4); PHOSPHORUS LEVEL 2.1 MG/DL (2.5-4.9); POTASSIUM SERUM 4.3 MEQ/L (3.5-5.1); SODIUM LEVEL 144 MEQ/L (136-145)
[2017-05-04] MEDS: ANUSOL HC CREAM 30GM TOP ×2 (09:00→20:43)
[2017-05-04] MEDS: predniSONE 5 MG TAB PO (09:11)
[2017-05-04] MEDS: FOLIC ACID 1 MG TAB PO (09:11)
[2017-05-04] MEDS: TACROLIMUS 0.5 MG CAP PO ×2 (09:11→20:42)
[2017-05-04] MEDS: PANTOPRAZOLE 40MG TAB (PROTONIX) PO (09:11)
[2017-05-04] MEDS: FIDAXOMICIN 200 MG TAB (DIFICID) PO ×2 (09:12→20:41)
[2017-05-04] MEDS: K-PHOS ORIGINAL (POT.ACID PHOSPHATE) 500MG TAB PO (09:12)
[2017-05-04] MEDS: ACETAMINOPHEN TAB 650MG DOSE (2X325MG) PO (20:41)
[2017-05-04] MEDS: ATORVASTATIN 10 MG TAB PO (20:41)
[2017-05-04] MEDS: TAMSULOSIN 0.4 MG CAP PO (20:42)
[2017-05-05] MEDS: ACETAMINOPHEN TAB 650MG DOSE (2X325MG) PO ×2 (05:34→19:11)
[2017-05-05 05:44] LABS: HEMOGLOBIN 9.4 g/dl (14.0-18.0); MEAN CORPUSCULAR HEMOGLOBIN 32.8 pg (27.0-33.0); MEAN CORPUSCULAR HGB CONC 32.4 g/dl (32.0-36.5); RED BLOOD COUNT 2.87 10^6/uL (4.30-6.10); RED CELL DISTRIBUTION WIDTH 13.9 % (11.5-14.5); WHITE BLOOD COUNT 4.5 10^3/uL (4.0-10.0)
[2017-05-05 05:45] LABS: PLATELET COUNT, AUTOMATED 30 10^3/uL (150-450)
[2017-05-05 05:46] LABS: IMMATURE PLATELET FRACTION % 6.2 % (0.0-10.9)
[2017-05-05 06:02] LABS: ALBUMIN 2.8 GM/DL (3.2-5.2); ANION GAP 5 MEQ/L (8-16); BLOOD UREA NITROGEN 12 MG/DL (7-18); CALCIUM LEVEL 8.8 MG/DL (8.8-10.2); CARBON DIOXIDE LEVEL 27 MEQ/L (21-32); CHLORIDE LEVEL 111 MEQ/L (98-107); CREATININE FOR GFR 0.92 MG/DL (0.70-1.30); GLOMERULAR FILTRATION RATE > 60.0 (>42); GLUCOSE, FASTING 95 MG/DL (70-100); MAGNESIUM LEVEL 1.8 MG/DL (1.8-2.4); PHOSPHORUS LEVEL 2.4 MG/DL (2.5-4.9); POTASSIUM SERUM 4.4 MEQ/L (3.5-5.1); SODIUM LEVEL 143 MEQ/L (136-145)
[2017-05-05] MEDS: PANTOPRAZOLE 40MG TAB (PROTONIX) PO (07:58)
[2017-05-05] MEDS: predniSONE 5 MG TAB PO (07:58)
[2017-05-05] MEDS: ANUSOL HC CREAM 30GM TOP ×2 (07:58→20:26)
[2017-05-05] MEDS: TACROLIMUS 0.5 MG CAP PO ×2 (07:58→20:25)
[2017-05-05] MEDS: K-PHOS ORIGINAL (POT.ACID PHOSPHATE) 500MG TAB PO (07:58)
[2017-05-05] MEDS: FOLIC ACID 1 MG TAB PO (07:58)
[2017-05-05] MEDS: FIDAXOMICIN 200 MG TAB (DIFICID) PO ×2 (07:58→20:25)
[2017-05-05] MEDS: TORSEMIDE 10 MG TABLET PO (14:26)
[2017-05-05] MEDS: TAMSULOSIN 0.4 MG CAP PO (20:25)
[2017-05-05] MEDS: ATORVASTATIN 10 MG TAB PO (20:25)
[2017-05-06] MEDS: ACETAMINOPHEN TAB 650MG DOSE (2X325MG) PO (02:44)
[2017-05-06 06:55] LABS: HEMATOCRIT 26.5 % (42.0-52.0); HEMOGLOBIN 8.6 g/dl (14.0-18.0); MEAN CORPUSCULAR HEMOGLOBIN 32.2 pg (27.0-33.0); MEAN CORPUSCULAR HGB CONC 32.5 g/dl (32.0-36.5); MEAN CORPUSCULAR VOLUME 99.3 fl (80.0-96.0); RED BLOOD COUNT 2.67 10^6/uL (4.30-6.10); RED CELL DISTRIBUTION WIDTH 14.1 % (11.5-14.5); WHITE BLOOD COUNT 2.9 10^3/uL (4.0-10.0)
[2017-05-06 07:03] LABS: PLATELET COUNT, AUTOMATED 27 10^3/uL (150-450); POS COUNT POS FLAG
[2017-05-06 07:04] LABS: PLATELET F 27
[2017-05-06 07:06] LABS: ALBUMIN 2.6 GM/DL (3.2-5.2); ANION GAP 6 MEQ/L (8-16); BLOOD UREA NITROGEN 14 MG/DL (7-18); CALCIUM LEVEL 8.3 MG/DL (8.8-10.2); CARBON DIOXIDE LEVEL 27 MEQ/L (21-32); CHLORIDE LEVEL 111 MEQ/L (98-107); GLOMERULAR FILTRATION RATE > 60.0 (>42); GLUCOSE, FASTING 92 MG/DL (70-100); MAGNESIUM LEVEL 1.7 MG/DL (1.8-2.4); PHOSPHORUS LEVEL 2.9 MG/DL (2.5-4.9); SODIUM LEVEL 144 MEQ/L (136-145)
[2017-05-06] MEDS: TORSEMIDE 10 MG TABLET PO (09:15)
[2017-05-06] MEDS: FIDAXOMICIN 200 MG TAB (DIFICID) PO (09:16)
[2017-05-06] MEDS: FOLIC ACID 1 MG TAB PO (09:16)
[2017-05-06] MEDS: PANTOPRAZOLE 40MG TAB (PROTONIX) PO (09:16)
[2017-05-06] MEDS: TACROLIMUS 0.5 MG CAP PO (09:16)
[2017-05-06] MEDS: predniSONE 5 MG TAB PO (09:16)
[2017-05-06] MEDS: ANUSOL HC CREAM 30GM TOP (09:18)
[2017-05-06] MEDS: MAG SULF 1GM/100ML (MAG RUN) 1 GM in APPROPRIATE DILUENT 1 EA IV (10:33)
[2017-05-06] MEDS: FILGRASTIM 480 MCG/0.8 ML SYRINGE (J1442) SC (11:07)
== END 2017-05-06 12:33 | disposition home or self-care (01) | DRG 372 ==
LOC: M ED 08:35 → M ED INP 13:32 → M MSPAV 16:55
DX: A04.71 Enterocolitis due to Clostridium difficile, recurrent (principal); D61.818 Other pancytopenia; Q61.3 Polycystic kidney, unspecified; Q44.6 Cystic disease of liver; I50.32 Chronic diastolic (congestive) heart failure; R78.81 Bacteremia; N17.9 Acute kidney failure, unspecified; Z94.0 Kidney transplant status; I85.00 Esophageal varices without bleeding; R16.1 Splenomegaly, not elsewhere classified; K74.60 Unspecified cirrhosis of liver; B96.20 Unspecified Escherichia coli [E. coli] as the cause of diseases classified elsewhere; Z85.47 Personal history of malignant neoplasm of testis; Z95.5 Presence of coronary angioplasty implant and graft; Z90.5 Acquired absence of kidney; Z90.49 Acquired absence of other specified parts of digestive tract; Z95.828 Presence of other vascular implants and grafts; Z88.0 Allergy status to penicillin; Z88.8 Allergy status to other drugs, medicaments and biological substances; Z79.52 Long term (current) use of systemic steroids; Z79.899 Other long term (current) drug therapy

== ENCOUNTER → 2017-05-13 | Outpatient (REF) | payer MEDICARE ==
[2017-05-15 10:10] LABS: FK 506 (TACROLIMUS) LABCORP 4.4 ng/mL (2.0-20.0)
== END ==
LOC: M LAB REF 12:50
DX: Z94.0 Kidney transplant status (principal)
CPT/HCPCS: 80197

== ENCOUNTER → 2017-06-16 | Outpatient (REF) | payer MEDICARE ==
[2017-06-16 17:58] LABS: TOTAL PROTEIN 5.9 GM/DL (6.4-8.2)
[2017-06-16 18:36] LABS: SLIDE REVIEW Report; SOURCE PERIPHERAL SMEAR
[2017-06-16 18:37] LABS: REASON FOR REVIEW PLATELET MORPHOLOGY
[2017-06-17 11:25] LABS: ALBUMIN 3.58 GM/DL (3.29-5.55); ALBUMIN % 60.6 % (55.8-66.1); ALPHA-1-GLOBULIN % 5.8 % (2.9-4.9); ALPHA-1-GLOBULINS 0.34 GM/DL (0.17-0.41); ALPHA-2-GLOBULINS 0.51 GM/DL (0.42-0.99); ALPHA-2-GLOBULINS % 8.7 % (7.1-11.8); BETA-1-GLOBULINS 0.36 GM/DL (0.28-0.60); BETA-1-GLOBULINS % 6.1 % (4.7-7.2); BETA-2-GLOBULINS 0.27 GM/DL (0.19-0.55); BETA-2-GLOBULINS % 4.5 % (3.2-6.5); GAMMA GLOBULIN % 14.3 % (11.1-18.8); GAMMA GLOBULINS 0.84 GM/DL (0.65-1.58)
== END ==
LOC: M LAB REF 16:55
DX: D61.818 Other pancytopenia (principal)
CPT/HCPCS: 84165

== ENCOUNTER → 2017-06-21 | Outpatient (CLI) | payer MEDICARE | LOC: M SMT 10:31 | DX: R91.8 Other nonspecific abnormal finding of lung field (principal); R05 Cough | CPT/HCPCS: 71046 ==

== ENCOUNTER → 2017-06-28 | Outpatient (REF) | payer MEDICARE ==
[2017-06-30 08:06] LABS: FK 506 (TACROLIMUS) LABCORP 8.1 ng/mL (2.0-20.0)
== END ==
LOC: M LAB REF 13:03
DX: Z94.0 Kidney transplant status (principal); D64.9 Anemia, unspecified
CPT/HCPCS: 82746

== ENCOUNTER → 2017-06-28 | Outpatient (REF) | payer MEDICARE ==
[2017-06-28 13:30] LABS: FERRITIN 117 NG/ML (26-388); IRON (FE) 47 UG/DL (65-175); PERCENT SATURATION 17.8 % (19.7-50.0); TOTAL IRON BINDING CAPACITY 264 UG/DL (250-450)
[2017-06-28 13:37] LABS: FOLATE > 24.0 NG/ML; VITAMIN B12 LEVEL 777 PG/ML
== END ==
LOC: M LAB REF 13:00
DX: D64.9 Anemia, unspecified (principal)

== ENCOUNTER → 2017-07-13 | Outpatient (REF) | payer MEDICARE | LOC: M LAB REF 12:51 | DX: D70.9 Neutropenia, unspecified (principal) | CPT/HCPCS: 88300 ==

== ENCOUNTER 2017-10-23 00:23 | Emergency (ER) | payer MEDICARE ==
[2017-10-23 01:29] LABS: BASO % 0.6 % (0.0-1.0); EOS % 0.3 % (0.0-3.0); HEMATOCRIT 27.1 % (42.0-52.0); HEMOGLOBIN 8.8 g/dl (13.5-17.5); LYMPH # 0.3 10^3/uL (1.5-4.5); LYMPH % 9.5 % (24.0-44.0); MEAN CORPUSCULAR HEMOGLOBIN 32.2 pg (27.0-33.0); MEAN CORPUSCULAR HGB CONC 32.5 g/dl (32.0-36.5); MEAN CORPUSCULAR VOLUME 99.3 fl (80.0-96.0); MONO # 0.3 10^3/uL (0.0-0.8); MONO % 9.2 % (0.0-5.0); NEUTROPHILS # 2.7 10^3/uL (1.8-7.7); NEUTROPHILS % 76.4 % (36.0-66.0); RED BLOOD COUNT 2.73 10^6/uL (4.30-6.10); RED CELL DISTRIBUTION WIDTH 13.9 % (11.5-14.5); WHITE BLOOD COUNT 3.5 10^3/uL (4.0-10.0)
[2017-10-23 01:41] LABS: INR 1.24; PROTHROMBIN TIME 15.7 SECONDS (12.1-14.4)
[2017-10-23 01:42] LABS: PARTIAL THROMBOPLASTIN TIME 30.7 SECONDS (25.4-37.6)
[2017-10-23 01:46] LABS: IMMATURE PLATELET FRACTION % 4.8 % (0.0-10.9); PLATELET COUNT, AUTOMATED 57 10^3/uL (150-450)
[2017-10-23 01:49] LABS: ALBUMIN 2.5 GM/DL (3.2-5.2); ALBUMIN/GLOBULIN RATIO 1.09 (1.00-1.93); ALKALINE PHOSPHATASE 138 U/L (45-117); ALT/SGPT 32 U/L (12-78); ANION GAP 7 MEQ/L (8-16); AST/SGOT 28 U/L (7-37); BILIRUBIN,DIRECT 0.5 MG/DL (0.0-0.2); BILIRUBIN,TOTAL 1.5 MG/DL (0.2-1.0); BLOOD UREA NITROGEN 63 MG/DL (7-18); CALCIUM LEVEL 9.1 MG/DL (8.8-10.2); CARBON DIOXIDE LEVEL 30 MEQ/L (21-32); CHLORIDE LEVEL 105 MEQ/L (98-107); CREATININE FOR GFR 1.35 MG/DL (0.70-1.30); GLUCOSE, FASTING 128 MG/DL (70-100); POTASSIUM SERUM 4.9 MEQ/L (3.5-5.1); SODIUM LEVEL 142 MEQ/L (136-145); TOTAL PROTEIN 4.8 GM/DL (6.4-8.2)
[2017-10-23 01:56] LABS: LACTIC ACID SEPSIS PROTOCOL 3.4 MMOL/L (0.4-2.0)
[2017-10-23] MEDS: NS 1,000 ML IV (02:15)
[2017-10-23] MEDS: MORPHINE 4 MG/ML 1ML VIAL/SYRINGE (J2270) IV (05:25)
== END 2017-10-23 06:40 | disposition short-term general hospital (02) ==
LOC: M ED 00:23
DX: K92.2 Gastrointestinal hemorrhage, unspecified (principal); D61.818 Other pancytopenia; R06.02 Shortness of breath; J45.909 Unspecified asthma, uncomplicated; K21.9 Gastro-esophageal reflux disease without esophagitis; E78.5 Hyperlipidemia, unspecified; Z94.0 Kidney transplant status; Z79.899 Other long term (current) drug therapy; Z88.0 Allergy status to penicillin; Z88.8 Allergy status to other drugs, medicaments and biological substances
CPT/HCPCS: J2270

== ENCOUNTER 2017-11-03 17:19 | Inpatient (IN) | payer MEDICARE ==
[2017-11-03] MEDS: FUROSEMIDE 40 MG/4 ML VIAL (J1940) IV (17:07)
[2017-11-03 17:23] LABS: ABG BASE EXCESS 0.4 (-2.0-2.0); ABG HCO3 24.7 MEQ/L (22.0-26.0); ABG O2 SATURATION 96.1 % (95.0-99.0); ABG PARTIAL PRESSURE CO2 38.3 mmHg (35.0-45.0); ABG PARTIAL PRESSURE O2 82.9 mmHg (75.0-100.0); ABG STANDARD HCO3 24.8 MEQ/L (22.0-26.0); ABG TOTAL CO2 25.9 MEQ/L (23.0-31.0); ABG pH (ARTERIAL) 7.427 UNITS (7.350-7.450)
[2017-11-03 17:24] LABS: BASO % 0.3 % (0.0-1.0); EOS # 0.2 10^3/uL (0.0-0.50); EOS % 2.7 % (0.0-3.0); HEMOGLOBIN 9.3 g/dl (13.5-17.5); LYMPH # 0.5 10^3/uL (1.5-4.5); LYMPH % 7.6 % (24.0-44.0); MEAN CORPUSCULAR HGB CONC 32.1 g/dl (32.0-36.5); MEAN CORPUSCULAR VOLUME 99.7 fl (80.0-96.0); MONO # 0.3 10^3/uL (0.0-0.8); NEUTROPHILS # 5.2 10^3/uL (1.8-7.7); NEUTROPHILS % 83.4 % (36.0-66.0); PROTHROMBIN TIME 15.3 SECONDS (12.1-14.4); RED BLOOD COUNT 2.91 10^6/uL (4.30-6.10); RED CELL DISTRIBUTION WIDTH 16.9 % (11.5-14.5); WHITE BLOOD COUNT 6.2 10^3/uL (4.0-10.0)
[2017-11-03 17:33] LABS: ALBUMIN 2.9 GM/DL (3.2-5.2); ALBUMIN/GLOBULIN RATIO 1.26 (1.00-1.93); ALKALINE PHOSPHATASE 146 U/L (45-117); ALT/SGPT 22 U/L (12-78); ANION GAP 6 MEQ/L (8-16); AST/SGOT 24 U/L (7-37); BILIRUBIN,DIRECT 0.7 MG/DL (0.0-0.2); BILIRUBIN,TOTAL 2.2 MG/DL (0.2-1.0); BLOOD UREA NITROGEN 21 MG/DL (7-18); CALCIUM LEVEL 8.9 MG/DL (8.8-10.2); CARBON DIOXIDE LEVEL 29 MEQ/L (21-32); CHLORIDE LEVEL 106 MEQ/L (98-107); CPK CREATINE PHOSPHOKINASE 39 U/L (39-308); CREATININE FOR GFR 1.49 MG/DL (0.70-1.30); GLOMERULAR FILTRATION RATE 49.1 (>42); GLUCOSE, FASTING 110 MG/DL (70-100); POTASSIUM SERUM 3.8 MEQ/L (3.5-5.1); SODIUM LEVEL 141 MEQ/L (136-145); TOTAL PROTEIN 5.2 GM/DL (6.4-8.2)
[2017-11-03 17:35] LABS: CK-MB VALUE MASS 1.7 NG/ML (<3.6); MB/CK RELATIVE INDEX 4.35 (< OR =4); NT-PRO BNP 3525 PG/ML (<125)
[2017-11-03 17:46] LABS: PLATELET COUNT, AUTOMATED 24 10^3/uL (150-450); POS COUNT POS FLAG
[2017-11-03 17:47] LABS: IMMATURE PLATELET FRACTION % 7.2 % (0.0-10.9)
[2017-11-03 17:50] LABS: LACTIC ACID SEPSIS PROTOCOL 2.6 MMOL/L (0.4-2.0)
[2017-11-03] MEDS ORDERED: NITROGLYCERIN 0.4 MG SUBL TABLET SL (21:00)
[2017-11-03] MEDS: ATORVASTATIN 10 MG TAB PO (22:11)
[2017-11-03] MEDS: LACTOBACILLUS ACIDOPHILUS CAP (BACID) PO (22:11)
[2017-11-03] MEDS: TAMSULOSIN 0.4 MG CAP PO (22:11)
[2017-11-03] MEDS: TACROLIMUS 0.5 MG CAP PO (22:12)
[2017-11-03] MEDS: CALCITRIOL 0.25 MCG CAP (S0169) PO (22:12)
[2017-11-04 00:19] LABS: TYPE AND SCREEN 1
[2017-11-04 00:30] LABS: LACTIC ACID SEPSIS PROTOCOL 2.3 MMOL/L (0.4-2.0)
[2017-11-04 05:00] LABS: HEMATOCRIT 25.2 % (42.0-52.0); HEMOGLOBIN 8.2 g/dl (13.5-17.5); MEAN CORPUSCULAR HEMOGLOBIN 32.2 pg (27.0-33.0); MEAN CORPUSCULAR HGB CONC 32.5 g/dl (32.0-36.5); MEAN CORPUSCULAR VOLUME 98.8 fl (80.0-96.0); RED BLOOD COUNT 2.55 10^6/uL (4.30-6.10); RED CELL DISTRIBUTION WIDTH 16.9 % (11.5-14.5); WHITE BLOOD COUNT 4.3 10^3/uL (4.0-10.0)
[2017-11-04 05:01] LABS: PLATELET COUNT, AUTOMATED 20 10^3/uL (150-450); POS COUNT POS FLAG
[2017-11-04 05:25] LABS: ANION GAP 5 MEQ/L (8-16); BLOOD UREA NITROGEN 20 MG/DL (7-18); CALCIUM LEVEL 8.5 MG/DL (8.8-10.2); CARBON DIOXIDE LEVEL 33 MEQ/L (21-32); CHLORIDE LEVEL 105 MEQ/L (98-107); CREATININE FOR GFR 1.42 MG/DL (0.70-1.30); GLOMERULAR FILTRATION RATE 51.9 (>42); GLUCOSE, FASTING 115 MG/DL (70-100); POTASSIUM SERUM 3.8 MEQ/L (3.5-5.1); SODIUM LEVEL 143 MEQ/L (136-145)
[2017-11-04] MEDS: HEPARIN SOD (PORCINE) 5000 UNITS/ML VIAL SC (06:00)
[2017-11-04] MEDS: predniSONE 5 MG TAB PO (08:53)
[2017-11-04] MEDS: LORATADINE 10 MG TAB PO (08:53)
[2017-11-04] MEDS: TACROLIMUS 0.5 MG CAP PO ×2 (08:53→20:14)
[2017-11-04] MEDS: LACTOBACILLUS ACIDOPHILUS CAP (BACID) PO ×2 (08:54→20:14)
[2017-11-04] MEDS: FOLIC ACID 1 MG TAB PO (08:54)
[2017-11-04] MEDS: MAGNESIUM OXIDE 400 MG TAB (MAG-OX) PO (08:54)
[2017-11-04] MEDS: FUROSEMIDE 20 MG/2 ML VIAL (J1940) IV (08:54)
[2017-11-04] MEDS: PANTOPRAZOLE 40MG TAB (PROTONIX) PO (08:54)
[2017-11-04 18:38] LABS: PLTBLUE- EDTA FREE MACHINE 17 10^3/uL (172-450)
[2017-11-04 18:39] LABS: PLTBLUE- EDTA FREE CALC 19 K/mm3 (172-450)
[2017-11-04] MEDS: TAMSULOSIN 0.4 MG CAP PO (20:14)
[2017-11-04] MEDS: ATORVASTATIN 10 MG TAB PO (20:14)
[2017-11-04] MEDS: CALCITRIOL 0.25 MCG CAP (S0169) PO (20:14)
[2017-11-05 06:08] LABS: HEMOGLOBIN 8.4 g/dl (13.5-17.5); MEAN CORPUSCULAR HEMOGLOBIN 31.8 pg (27.0-33.0); MEAN CORPUSCULAR HGB CONC 32.3 g/dl (32.0-36.5); MEAN CORPUSCULAR VOLUME 98.5 fl (80.0-96.0); RED BLOOD COUNT 2.64 10^6/uL (4.30-6.10); RED CELL DISTRIBUTION WIDTH 16.6 % (11.5-14.5); WHITE BLOOD COUNT 3.5 10^3/uL (4.0-10.0)
[2017-11-05 06:20] LABS: ANION GAP 6 MEQ/L (8-16); BLOOD UREA NITROGEN 20 MG/DL (7-18); CARBON DIOXIDE LEVEL 32 MEQ/L (21-32); CHLORIDE LEVEL 105 MEQ/L (98-107); CREATININE FOR GFR 1.39 MG/DL (0.70-1.30); GLOMERULAR FILTRATION RATE 53.2 (>42); GLUCOSE, FASTING 96 MG/DL (70-100); PLATELET COUNT, AUTOMATED 21 10^3/uL (150-450); POS COUNT POS FLAG; SODIUM LEVEL 143 MEQ/L (136-145)
[2017-11-05 06:21] LABS: IMMATURE PLATELET FRACTION % 5.8 % (0.0-10.9); PLATELET F 1.2
[2017-11-05 06:50] LABS: PLTBLUE- EDTA FREE CALC 19 K/mm3 (172-450)
[2017-11-05 06:55] LABS: PLTBLUE- EDTA FREE MACHINE 17 10^3/uL (172-450)
[2017-11-05] MEDS: FUROSEMIDE 40 MG/4 ML VIAL (J1940) IV (08:10)
[2017-11-05] MEDS: LORATADINE 10 MG TAB PO (08:11)
[2017-11-05] MEDS: PANTOPRAZOLE 40MG TAB (PROTONIX) PO (08:11)
[2017-11-05] MEDS: predniSONE 5 MG TAB PO (08:11)
[2017-11-05] MEDS: MAGNESIUM OXIDE 400 MG TAB (MAG-OX) PO (08:11)
[2017-11-05] MEDS: FOLIC ACID 1 MG TAB PO (08:11)
[2017-11-05] MEDS: LACTOBACILLUS ACIDOPHILUS CAP (BACID) PO ×2 (08:11→20:18)
[2017-11-05] MEDS: TACROLIMUS 0.5 MG CAP PO ×2 (08:11→20:18)
[2017-11-05] MEDS: FILGRASTIM 300 MCG/0.5 ML SYRINGE (J1442 PER 1MCG) SC (13:34)
[2017-11-05] MEDS: ATORVASTATIN 10 MG TAB PO (20:18)
[2017-11-05] MEDS: CALCITRIOL 0.25 MCG CAP (S0169) PO (20:18)
[2017-11-05] MEDS: TAMSULOSIN 0.4 MG CAP PO (20:18)
[2017-11-06 06:08] LABS: HEMATOCRIT 26.2 % (42.0-52.0); HEMOGLOBIN 8.4 g/dl (13.5-17.5); MEAN CORPUSCULAR HEMOGLOBIN 31.7 pg (27.0-33.0); MEAN CORPUSCULAR HGB CONC 32.1 g/dl (32.0-36.5); MEAN CORPUSCULAR VOLUME 98.9 fl (80.0-96.0); RED BLOOD COUNT 2.65 10^6/uL (4.30-6.10); RED CELL DISTRIBUTION WIDTH 16.6 % (11.5-14.5); WHITE BLOOD COUNT 6.1 10^3/uL (4.0-10.0)
[2017-11-06 06:11] LABS: PLATELET COUNT, AUTOMATED 19 10^3/uL (150-450); POS COUNT POS FLAG
[2017-11-06 06:25] LABS: ANION GAP 6 MEQ/L (8-16); BLOOD UREA NITROGEN 18 MG/DL (7-18); CALCIUM LEVEL 8.9 MG/DL (8.8-10.2); CARBON DIOXIDE LEVEL 32 MEQ/L (21-32); CHLORIDE LEVEL 105 MEQ/L (98-107); CREATININE FOR GFR 1.31 MG/DL (0.70-1.30); GLOMERULAR FILTRATION RATE 56.9 (>42); GLUCOSE, FASTING 113 MG/DL (70-100); POTASSIUM SERUM 3.9 MEQ/L (3.5-5.1); SODIUM LEVEL 143 MEQ/L (136-145)
[2017-11-06] MEDS: MAGNESIUM OXIDE 400 MG TAB (MAG-OX) PO (08:24)
[2017-11-06] MEDS: PANTOPRAZOLE 40MG TAB (PROTONIX) PO (08:24)
[2017-11-06] MEDS: PREVNAR 13 VACCINE SYRINGE (CPT CODE:90670) IM (08:24)
[2017-11-06] MEDS: LACTOBACILLUS ACIDOPHILUS CAP (BACID) PO ×2 (08:24→19:48)
[2017-11-06] MEDS: predniSONE 5 MG TAB PO (08:24)
[2017-11-06] MEDS: FUROSEMIDE 40 MG/4 ML VIAL (J1940) IV ×2 (08:24→13:59)
[2017-11-06] MEDS: TACROLIMUS 0.5 MG CAP PO ×2 (08:24→19:47)
[2017-11-06] MEDS: LORATADINE 10 MG TAB PO (08:24)
[2017-11-06] MEDS: FOLIC ACID 1 MG TAB PO (08:25)
[2017-11-06] MEDS: aMILoride 5 MG TAB PO ×2 (15:25→19:48)
[2017-11-06] MEDS: TAMSULOSIN 0.4 MG CAP PO (19:46)
[2017-11-06] MEDS: FUROSEMIDE 20 MG/2 ML VIAL (J1940) IV (19:46)
[2017-11-06] MEDS: ATORVASTATIN 10 MG TAB PO (19:47)
[2017-11-06] MEDS: CALCITRIOL 0.25 MCG CAP (S0169) PO (19:47)
[2017-11-07 06:20] LABS: HEMATOCRIT 26.7 % (42.0-52.0); HEMOGLOBIN 8.3 g/dl (13.5-17.5); MEAN CORPUSCULAR HEMOGLOBIN 31.6 pg (27.0-33.0); MEAN CORPUSCULAR HGB CONC 31.1 g/dl (32.0-36.5); MEAN CORPUSCULAR VOLUME 101.5 fl (80.0-96.0); RED BLOOD COUNT 2.63 10^6/uL (4.30-6.10); RED CELL DISTRIBUTION WIDTH 16.6 % (11.5-14.5)
[2017-11-07 06:24] LABS: PLATELET COUNT, AUTOMATED 22 10^3/uL (150-450); POS COUNT POS FLAG
[2017-11-07 06:25] LABS: IMMATURE PLATELET FRACTION % 6.6 % (0.0-10.9)
[2017-11-07 06:33] LABS: ANION GAP 5 MEQ/L (8-16); BLOOD UREA NITROGEN 19 MG/DL (7-18); CALCIUM LEVEL 8.9 MG/DL (8.8-10.2); CARBON DIOXIDE LEVEL 34 MEQ/L (21-32); CHLORIDE LEVEL 105 MEQ/L (98-107); CREATININE FOR GFR 1.38 MG/DL (0.70-1.30); FERRITIN 96 NG/ML (26-388); GLOMERULAR FILTRATION RATE 53.6 (>42); GLUCOSE, FASTING 92 MG/DL (70-100); IRON (FE) 41 UG/DL (65-175); MAGNESIUM LEVEL 1.3 MG/DL (1.8-2.4); PERCENT SATURATION 19.9 % (19.7-50.0); POTASSIUM SERUM 3.8 MEQ/L (3.5-5.1); SODIUM LEVEL 144 MEQ/L (136-145); TOTAL IRON BINDING CAPACITY 206 UG/DL (250-450)
[2017-11-07] MEDS: PANTOPRAZOLE 40MG TAB (PROTONIX) PO (08:49)
[2017-11-07] MEDS: MAGNESIUM OXIDE 400 MG TAB (MAG-OX) PO ×2 (08:50→20:54)
[2017-11-07] MEDS: LORATADINE 10 MG TAB PO (08:50)
[2017-11-07] MEDS: LACTOBACILLUS ACIDOPHILUS CAP (BACID) PO ×2 (08:50→20:54)
[2017-11-07] MEDS: predniSONE 5 MG TAB PO (08:50)
[2017-11-07] MEDS: FOLIC ACID 1 MG TAB PO (08:50)
[2017-11-07] MEDS: TACROLIMUS 0.5 MG CAP PO ×2 (08:51→20:55)
[2017-11-07] MEDS: aMILoride 5 MG TAB PO ×2 (08:51→20:54)
[2017-11-07] MEDS: MAG SULF 1GM/100ML (MAG RUN) 1 GM in APPROPRIATE DILUENT 1 EA IV ×2 (11:20→12:21)
[2017-11-07] MEDS: FUROSEMIDE 40 MG/4 ML VIAL (J1940) IV (15:08)
[2017-11-07] MEDS: TAMSULOSIN 0.4 MG CAP PO (20:54)
[2017-11-07] MEDS: ATORVASTATIN 10 MG TAB PO (20:54)
[2017-11-07] MEDS: CALCITRIOL 0.25 MCG CAP (S0169) PO (20:55)
[2017-11-08 05:52] LABS: HEMATOCRIT 25.8 % (42.0-52.0); HEMOGLOBIN 8.2 g/dl (13.5-17.5); MEAN CORPUSCULAR HEMOGLOBIN 31.5 pg (27.0-33.0); MEAN CORPUSCULAR HGB CONC 31.8 g/dl (32.0-36.5); MEAN CORPUSCULAR VOLUME 99.2 fl (80.0-96.0); RED CELL DISTRIBUTION WIDTH 16.5 % (11.5-14.5); WHITE BLOOD COUNT 4.6 10^3/uL (4.0-10.0)
[2017-11-08 05:54] LABS: PLATELET COUNT, AUTOMATED 20 10^3/uL (150-450); POS COUNT POS FLAG
[2017-11-08 06:21] LABS: ANION GAP 5 MEQ/L (8-16); BLOOD UREA NITROGEN 22 MG/DL (7-18); CALCIUM LEVEL 8.9 MG/DL (8.8-10.2); CARBON DIOXIDE LEVEL 34 MEQ/L (21-32); CHLORIDE LEVEL 104 MEQ/L (98-107); CREATININE FOR GFR 1.46 MG/DL (0.70-1.30); GLOMERULAR FILTRATION RATE 50.2 (>42); GLUCOSE, FASTING 116 MG/DL (70-100); MAGNESIUM LEVEL 1.7 MG/DL (1.8-2.4); POTASSIUM SERUM 3.9 MEQ/L (3.5-5.1); SODIUM LEVEL 143 MEQ/L (136-145)
[2017-11-08] MEDS: PANTOPRAZOLE 40MG TAB (PROTONIX) PO (08:48)
[2017-11-08] MEDS: LACTOBACILLUS ACIDOPHILUS CAP (BACID) PO ×2 (08:48→20:28)
[2017-11-08] MEDS: aMILoride 5 MG TAB PO ×2 (08:48→20:29)
[2017-11-08] MEDS: LORATADINE 10 MG TAB PO (08:48)
[2017-11-08] MEDS: TACROLIMUS 0.5 MG CAP PO ×2 (08:48→20:29)
[2017-11-08] MEDS: FOLIC ACID 1 MG TAB PO (08:48)
[2017-11-08] MEDS: predniSONE 5 MG TAB PO (08:49)
[2017-11-08] MEDS: MAGNESIUM OXIDE 400 MG TAB (MAG-OX) PO (08:49)
[2017-11-08] MEDS ORDERED: IRON SUCROSE 100MG 5ML VIAL (J1756 PER 1MG) IV (09:15)
[2017-11-08] MEDS: TORSEMIDE 20 MG TAB PO (11:43)
[2017-11-08] MEDS: IRON SUCROSE 25 MG in NS 50 ML IV (11:44)
[2017-11-08] MEDS: IRON SUCROSE 275 MG in NS 250 ML IV (13:43)
[2017-11-08] MEDS: TAMSULOSIN 0.4 MG CAP PO (20:29)
[2017-11-08] MEDS: CALCITRIOL 0.25 MCG CAP (S0169) PO (20:29)
[2017-11-08] MEDS: ATORVASTATIN 10 MG TAB PO (20:29)
[2017-11-09 06:22] LABS: HEMATOCRIT 27.2 % (42.0-52.0); HEMOGLOBIN 8.7 g/dl (13.5-17.5); MEAN CORPUSCULAR HEMOGLOBIN 31.8 pg (27.0-33.0); MEAN CORPUSCULAR VOLUME 99.3 fl (80.0-96.0); RED BLOOD COUNT 2.74 10^6/uL (4.30-6.10); RED CELL DISTRIBUTION WIDTH 16.5 % (11.5-14.5); WHITE BLOOD COUNT 5.3 10^3/uL (4.0-10.0)
[2017-11-09 06:24] LABS: PLATELET COUNT, AUTOMATED 24 10^3/uL (150-450); POS COUNT POS FLAG
[2017-11-09 06:25] LABS: IMMATURE PLATELET FRACTION % 5.8 % (0.0-10.9)
[2017-11-09 06:42] LABS: ANION GAP 7 MEQ/L (8-16); BLOOD UREA NITROGEN 22 MG/DL (7-18); CALCIUM LEVEL 8.6 MG/DL (8.8-10.2); CARBON DIOXIDE LEVEL 32 MEQ/L (21-32); CHLORIDE LEVEL 103 MEQ/L (98-107); CREATININE FOR GFR 1.49 MG/DL (0.70-1.30); GLOMERULAR FILTRATION RATE 49.1 (>42); GLUCOSE, FASTING 91 MG/DL (70-100); MAGNESIUM LEVEL 1.4 MG/DL (1.8-2.4); POTASSIUM SERUM 3.9 MEQ/L (3.5-5.1); SODIUM LEVEL 142 MEQ/L (136-145)
[2017-11-09] MEDS: LACTOBACILLUS ACIDOPHILUS CAP (BACID) PO ×2 (08:50→21:36)
[2017-11-09] MEDS: LORATADINE 10 MG TAB PO (08:50)
[2017-11-09] MEDS: FOLIC ACID 1 MG TAB PO (08:51)
[2017-11-09] MEDS: PANTOPRAZOLE 40MG TAB (PROTONIX) PO (08:51)
[2017-11-09] MEDS: MAGNESIUM OXIDE 400 MG TAB (MAG-OX) PO ×2 (08:51→17:38)
[2017-11-09] MEDS: predniSONE 5 MG TAB PO (08:51)
[2017-11-09] MEDS: TACROLIMUS 0.5 MG CAP PO ×2 (08:53→21:39)
[2017-11-09] MEDS ORDERED: LOPERAMIDE 2 MG CAP PO (15:45)
[2017-11-09 17:21] LABS: IMMEDIATE SPIN CROSSMATCH 1 1
[2017-11-09] MEDS: ATORVASTATIN 10 MG TAB PO (21:36)
[2017-11-09] MEDS: TAMSULOSIN 0.4 MG CAP PO (21:36)
[2017-11-09] MEDS: CALCITRIOL 0.25 MCG CAP (S0169) PO (21:36)
[2017-11-09] MEDS: FUROSEMIDE injection 250 MG in D5W 225 ML IV (21:37)
[2017-11-10 06:05] LABS: HEMATOCRIT 29.9 % (42.0-52.0); HEMOGLOBIN 9.5 g/dl (13.5-17.5); MEAN CORPUSCULAR HEMOGLOBIN 31.4 pg (27.0-33.0); MEAN CORPUSCULAR HGB CONC 31.8 g/dl (32.0-36.5); MEAN CORPUSCULAR VOLUME 98.7 fl (80.0-96.0); PLATELET COUNT, AUTOMATED 25 10^3/uL (150-450); POS COUNT POS FLAG; RED BLOOD COUNT 3.03 10^6/uL (4.30-6.10); RED CELL DISTRIBUTION WIDTH 17.3 % (11.5-14.5); WHITE BLOOD COUNT 6.1 10^3/uL (4.0-10.0)
[2017-11-10 06:20] LABS: ANION GAP 4 MEQ/L (8-16); BLOOD UREA NITROGEN 24 MG/DL (7-18); CALCIUM LEVEL 8.7 MG/DL (8.8-10.2); CARBON DIOXIDE LEVEL 34 MEQ/L (21-32); CHLORIDE LEVEL 103 MEQ/L (98-107); GLOMERULAR FILTRATION RATE 48.7 (>42); GLUCOSE, FASTING 98 MG/DL (70-100); MAGNESIUM LEVEL 1.6 MG/DL (1.8-2.4); SODIUM LEVEL 141 MEQ/L (136-145)
[2017-11-10] MEDS: LORATADINE 10 MG TAB PO (08:59)
[2017-11-10] MEDS: LACTOBACILLUS ACIDOPHILUS CAP (BACID) PO ×2 (08:59→20:51)
[2017-11-10] MEDS: FOLIC ACID 1 MG TAB PO (08:59)
[2017-11-10] MEDS: PANTOPRAZOLE 40MG TAB (PROTONIX) PO (08:59)
[2017-11-10] MEDS: aMILoride 5 MG TAB PO ×2 (09:00→20:51)
[2017-11-10] MEDS: TACROLIMUS 0.5 MG CAP PO ×2 (09:00→20:50)
[2017-11-10] MEDS: predniSONE 5 MG TAB PO (09:00)
[2017-11-10] MEDS: MAGNESIUM OXIDE 400 MG TAB (MAG-OX) PO (09:00)
[2017-11-10] MEDS: TAMSULOSIN 0.4 MG CAP PO (20:50)
[2017-11-10] MEDS: ATORVASTATIN 10 MG TAB PO (20:50)
[2017-11-10] MEDS: CALCITRIOL 0.25 MCG CAP (S0169) PO (20:51)
[2017-11-11] MEDS: TACROLIMUS 0.5 MG CAP PO ×2 (08:55→21:53)
[2017-11-11] MEDS: aMILoride 5 MG TAB PO ×2 (08:55→21:52)
[2017-11-11] MEDS: MAGNESIUM OXIDE 400 MG TAB (MAG-OX) PO ×2 (08:55→21:53)
[2017-11-11] MEDS: predniSONE 5 MG TAB PO (08:55)
[2017-11-11] MEDS: FOLIC ACID 1 MG TAB PO (08:55)
[2017-11-11] MEDS: LORATADINE 10 MG TAB PO (08:55)
[2017-11-11] MEDS: PANTOPRAZOLE 40MG TAB (PROTONIX) PO (08:55)
[2017-11-11] MEDS: LACTOBACILLUS ACIDOPHILUS CAP (BACID) PO ×2 (08:55→21:52)
[2017-11-11 09:53] LABS: HEMATOCRIT 31.4 % (42.0-52.0); HEMOGLOBIN 10.1 g/dl (13.5-17.5); MEAN CORPUSCULAR HEMOGLOBIN 31.8 pg (27.0-33.0); MEAN CORPUSCULAR HGB CONC 32.2 g/dl (32.0-36.5); MEAN CORPUSCULAR VOLUME 98.7 fl (80.0-96.0); RED BLOOD COUNT 3.18 10^6/uL (4.30-6.10); WHITE BLOOD COUNT 5.2 10^3/uL (4.0-10.0)
[2017-11-11 09:55] LABS: PLATELET COUNT, AUTOMATED 26 10^3/uL (150-450); POS COUNT POS FLAG
[2017-11-11 09:59] LABS: IMMATURE PLATELET FRACTION % 5.9 % (0.0-10.9)
[2017-11-11 10:18] LABS: ALBUMIN 2.7 GM/DL (3.2-5.2); ALBUMIN/GLOBULIN RATIO 1.17 (1.00-1.93); ALKALINE PHOSPHATASE 138 U/L (45-117); ALT/SGPT 20 U/L (12-78); ANION GAP 8 MEQ/L (8-16); AST/SGOT 24 U/L (7-37); BILIRUBIN,TOTAL 2.1 MG/DL (0.2-1.0); BLOOD UREA NITROGEN 23 MG/DL (7-18); CALCIUM LEVEL 8.6 MG/DL (8.8-10.2); CARBON DIOXIDE LEVEL 32 MEQ/L (21-32); CHLORIDE LEVEL 102 MEQ/L (98-107); CREATININE FOR GFR 1.59 MG/DL (0.70-1.30); GLOMERULAR FILTRATION RATE 45.5 (>42); GLUCOSE, FASTING 116 MG/DL (70-100); MAGNESIUM LEVEL 1.7 MG/DL (1.8-2.4); POTASSIUM SERUM 3.6 MEQ/L (3.5-5.1); SODIUM LEVEL 142 MEQ/L (136-145)
[2017-11-11] MEDS: TORSEMIDE 20 MG TAB PO (11:28)
[2017-11-11] MEDS: CALCITRIOL 0.25 MCG CAP (S0169) PO (21:52)
[2017-11-11] MEDS: ATORVASTATIN 10 MG TAB PO (21:53)
[2017-11-11] MEDS: TAMSULOSIN 0.4 MG CAP PO (21:53)
[2017-11-12 08:24] LABS: HEMATOCRIT 28.1 % (42.0-52.0); HEMOGLOBIN 9.1 g/dl (13.5-17.5); MEAN CORPUSCULAR HEMOGLOBIN 31.7 pg (27.0-33.0); MEAN CORPUSCULAR HGB CONC 32.4 g/dl (32.0-36.5); MEAN CORPUSCULAR VOLUME 97.9 fl (80.0-96.0); PLATELET COUNT, AUTOMATED 26 10^3/uL (150-450); RED BLOOD COUNT 2.87 10^6/uL (4.30-6.10); RED CELL DISTRIBUTION WIDTH 16.9 % (11.5-14.5); WHITE BLOOD COUNT 3.7 10^3/uL (4.0-10.0)
[2017-11-12 08:25] LABS: POS COUNT POS FLAG
[2017-11-12 08:44] LABS: ANION GAP 6 MEQ/L (8-16); BLOOD UREA NITROGEN 23 MG/DL (7-18); CALCIUM LEVEL 8.2 MG/DL (8.8-10.2); CARBON DIOXIDE LEVEL 32 MEQ/L (21-32); CHLORIDE LEVEL 104 MEQ/L (98-107); CREATININE FOR GFR 1.38 MG/DL (0.70-1.30); GLOMERULAR FILTRATION RATE 53.6 (>42); GLUCOSE, FASTING 103 MG/DL (70-100); MAGNESIUM LEVEL 1.8 MG/DL (1.8-2.4); POTASSIUM SERUM 3.8 MEQ/L (3.5-5.1); SODIUM LEVEL 142 MEQ/L (136-145)
[2017-11-12] MEDS: LACTOBACILLUS ACIDOPHILUS CAP (BACID) PO (10:13)
[2017-11-12] MEDS: TACROLIMUS 0.5 MG CAP PO (10:14)
[2017-11-12] MEDS: aMILoride 5 MG TAB PO (10:14)
[2017-11-12] MEDS: PANTOPRAZOLE 40MG TAB (PROTONIX) PO (10:14)
[2017-11-12] MEDS: MAGNESIUM OXIDE 400 MG TAB (MAG-OX) PO (10:14)
[2017-11-12] MEDS: TORSEMIDE 20 MG TAB PO (10:15)
[2017-11-12] MEDS: predniSONE 5 MG TAB PO (10:15)
[2017-11-12] MEDS: FOLIC ACID 1 MG TAB PO (10:15)
[2017-11-12] MEDS: LORATADINE 10 MG TAB PO (10:15)
[2017-11-12] MEDS: FILGRASTIM 300 MCG/0.5 ML SYRINGE (J1442 PER 1MCG) SC (11:15)
[2017-11-12] MEDS ORDERED: MAGNESIUM OXIDE 400 MG TAB (MAG-OX) PO (21:00)
== END 2017-11-12 14:42 | disposition home health service (06) | DRG 292 ==
LOC: M MSPAV 20:51 → M ED 17:19 → M ED INP 20:51
PROC: 30233J1 Transfusion of Nonautologous Serum Albumin into Peripheral Vein, Percutaneous Approach (ICD-10-PCS; 2017-11-04)
PROC: 30233N1 Transfusion of Nonautologous Red Blood Cells into Peripheral Vein, Percutaneous Approach (ICD-10-PCS; principal; 2017-11-09)
DX: I50.33 Acute on chronic diastolic (congestive) heart failure (principal); Q61.3 Polycystic kidney, unspecified; D61.818 Other pancytopenia; Z94.0 Kidney transplant status; D84.9 Immunodeficiency, unspecified; N25.81 Secondary hyperparathyroidism of renal origin; N17.9 Acute kidney failure, unspecified; E87.3 Alkalosis; E78.5 Hyperlipidemia, unspecified; E83.42 Hypomagnesemia; J44.9 Chronic obstructive pulmonary disease, unspecified; D69.6 Thrombocytopenia, unspecified; D70.9 Neutropenia, unspecified; N18.9 Chronic kidney disease, unspecified; N40.0 Benign prostatic hyperplasia without lower urinary tract symptoms; J98.4 Other disorders of lung; I25.10 Atherosclerotic heart disease of native coronary artery without angina pectoris; Z95.5 Presence of coronary angioplasty implant and graft; Z85.47 Personal history of malignant neoplasm of testis; Z86.12 Personal history of poliomyelitis; Z79.52 Long term (current) use of systemic steroids; Z88.0 Allergy status to penicillin; Z88.8 Allergy status to other drugs, medicaments and biological substances; Z88.6 Allergy status to analgesic agent; Z79.899 Other long term (current) drug therapy